=== PATIENT | male | born 1975 | race Caucasian/White ===

== ENCOUNTER 2019-06-28 08:01 | Inpatient (IN) | payer OTHER ==
--- NOTE | 2019-06-28 08:36 | ED ---
URI HPI - General Chief Complaint: Upper Respiratory Infection Stated Complaint: fever, SOB, cough Time Seen by Provider: 06/28/19 08:10 Source: patient, RN notes reviewed Mode of arrival: ambulatory Limitations: no limitations - History of Present Illness Initial Comments: This is a 44-year-old male with a benign history other than he is a smoker who s tates for the past 12 days she's been so 14 we started developing illness and feeling sick. He states he's had fatigue for the past 2 days shortness of breath or past 3 days chills and sweats since last night shakes left-sided sharp chest pain cough with yellow thick phlegm he generally doesn't feel well. He also has some diarrhea. No overt nausea vomiting. The pain is minimally states he has no known history of heart or lung disease he does not use any inhalers. No other known exposure at this time MD Complaint: fever, cough, sore throat, rhinorrhea, nasal congestion, other - Related Data Allergies Allergy/AdvReac Type Severity Reaction Status Date / Time gabapentin [From Neurontin] Allergy Unknown Verified 06/28/19 10:17 Review of Systems ROS Statement: Those systems with pertinent positive or pertinent negative responses have been documented in the HPI. ROS Other: All systems not noted in ROS Statement are negative. Past Medical History Past Medical History: Hypertension History of Any Multi-Drug Resistant Organisms: None Reported Additional Past Surgical History / Comment(s): prostethic eye Smoking Status: Current every day smoker Past Alcohol Use History: Occasional Past Drug Use History: Marijuana General Exam - General Exam Comments Initial Comments: This a well-developed obese male who is awake alert oriented 3 Limitations: no limitations General appearance: alert, anxious Head exam: Present: atraumatic, normocephalic, normal inspection Eye exam: Present: normal appearance, PERRL, EOMI. Absent: scleral icterus, conjunctival injection, periorbital swelling ENT exam: Present: mucous membranes moist, other (Posterior pharyngeal hyperemia with no exudates) Neck exam: Present: normal inspection, full ROM, other (No stridor JVD or bruits ). Absent: tenderness, meningismus, lymphadenopathy Respiratory exam: Present: decreased breath sounds. Absent: respiratory distress, wheezes, rales, rhonchi, stridor Cardiovascular Exam: Present: normal rhythm, tachycardia, normal heart sounds. Absent: systolic murmur, diastolic murmur, rubs, gallop, clicks GI/Abdominal exam: Present: soft, normal bowel sounds. Absent: distended, tenderness, guarding, rebound, rigid Extremities exam: Present: normal inspection, full ROM, normal capillary refill. Absent: tenderness, pedal edema, joint swelling, calf tenderness Back exam: Present: normal inspection Neurological exam: Present: alert, oriented X3, CN II-XII intact Psychiatric exam: Present: normal affect, normal mood Skin exam: Present: warm, dry, intact, normal color. Absent: rash Course Vital Signs 06/28/19 06/28/19 06/28/19 08:02 08:37 09:35 Temperature 97.9 F Pulse Rate 125 H 111 H Respiratory 20 18 20 Rate Blood Pressure 183/114 O2 Sat by Pulse 99 92 L Oximetry 06/28/19 10:33 Temperature 97.6 F Pulse Rate 105 H Respiratory 24 Rate Blood Pressure 178/118 O2 Sat by Pulse 96 Oximetry - Reevaluation(s) Reevaluation #1: 06/28/19 11:27 I did reevaluate patient several occasions he did have to Covid 19 tests performed which were both negative. Sec and was performed secondary to some apparently having issues with the combination influenza and Covid testing Medical Decision Making - Medical Decision Making I did discuss findings with the patient. Patient does demonstrate evidence of pneumonia with elevated troponin. Patient will be admitted the case is discussed with Dr. Peralta - Lab Data Result diagrams: 06/28/19 08:42 06/28/19 08:42 Lab Results 06/28/19 06/28/19 06/28/19 Range/Units 08:42 08:42 08:42 WBC 8.2 (3.8-10.6) k/uL RBC 4.88 (4.30-5.90) m/uL Hgb 16.4 (13.0-17.5) gm/dL Hct 48.5 (39.0-53.0) % MCV 99.3 (80.0-100.0) fL MCH 33.7 (25.0-35.0) pg MCHC 33.9 (31.0-37.0) g/dL RDW 13.0 (11.5-15.5) % Plt Count 149 L (150-450) k/uL Neutrophils % 80 % Lymphocytes % 13 % Monocytes % 4 % Eosinophils % 1 % Basophils % 1 % Neutrophils # 6.6 (1.3-7.7) k/uL Lymphocytes # 1.0 (1.0-4.8) k/uL Monocytes # 0.4 (0-1.0) k/uL Eosinophils # 0.1 (0-0.7) k/uL Basophils # 0.1 (0-0.2) k/uL PT 11.1 (9.0-12.0) sec INR 1.1 (<1.2) APTT 24.3 (22.0-30.0) sec D-Dimer 0.67 H (<0.60) mg/L FEU Sodium 134 L (137-145) mmol/L Potassium 3.5 (3.5-5.1) mmol/L Chloride 100 (98-107) mmol/L Carbon Dioxide 27 (22-30) mmol/L Anion Gap 7 mmol/L BUN 10 (9-20) mg/dL Creatinine 0.86 (0.66-1.25) mg/dL Est GFR (CKD-EPI)AfAm >90 (>60 ml/min/1.73 sqM) Est GFR (CKD-EPI)NonAf >90 (>60 ml/min/1.73 sqM) Glucose 136 H (74-99) mg/dL Plasma Lactic Acid Montez (0.7-2.0) mmol/L Calcium 9.5 (8.4-10.2) mg/dL Magnesium 1.1 L (1.6-2.3) mg/dL Total Bilirubin 1.1 (0.2-1.3) mg/dL AST 119 H (17-59) U/L ALT 60 H (4-49) U/L Alkaline Phosphatase 114 (38-126) U/L Lactate Dehydrogenase 1049 H (313-618) U/L Creatine Kinase 738 H (55-170) U/L Troponin I (0.000-0.034) ng/mL C-Reactive Protein <5.0 (<10.0) mg/L NT-Pro-B Natriuret Pep pg/mL Total Protein 8.6 H (6.3-8.2) g/dL Albumin 4.8 (3.5-5.0) g/dL Coronavirus (PCR) (Not Detectd) Influenza Type A RNA (Not Detectd) Influenza Type B (PCR) (Not Detectd) 06/28/19 06/28/19 06/28/19 Range/Units 08:42 08:42 08:42 WBC (3.8-10.6) k/uL RBC (4.30-5.90) m/uL Hgb (13.0-17.5) gm/dL Hct (39.0-53.0) % MCV (80.0-100.0) fL MCH (25.0-35.0) pg MCHC (31.0-37.0) g/dL RDW (11.5-15.5) % Plt Count (150-450) k/uL Neutrophils % % Lymphocytes % % Monocytes % % Eosinophils % % Basophils % % Neutrophils # (1.3-7.7) k/uL Lymphocytes # (1.0-4.8) k/uL Monocytes # (0-1.0) k/uL Eosinophils # (0-0.7) k/uL Basophils # (0-0.2) k/uL PT (9.0-12.0) sec INR (<1.2) APTT (22.0-30.0) sec D-Dimer (<0.60) mg/L FEU Sodium (137-145) mmol/L Potassium (3.5-5.1) mmol/L Chloride (98-107) mmol/L Carbon Dioxide (22-30) mmol/L Anion Gap mmol/L BUN (9-20) mg/dL Creatinine (0.66-1.25) mg/dL Est GFR (CKD-EPI)AfAm (>60 ml/min/1.73 sqM) Est GFR (CKD-EPI)NonAf (>60 ml/min/1.73 sqM) Glucose (74-99) mg/dL Plasma Lactic Acid Montez 2.1 H* (0.7-2.0) mmol/L Calcium (8.4-10.2) mg/dL Magnesium (1.6-2.3) mg/dL Total Bilirubin (0.2-1.3) mg/dL AST (17-59) U/L ALT (4-49) U/L Alkaline Phosphatase (38-126) U/L Lactate Dehydrogenase (313-618) U/L Creatine Kinase (55-170) U/L Troponin I 0.070 H* (0.000-0.034) ng/mL C-Reactive Protein (<10.0) mg/L NT-Pro-B Natriuret Pep 74 pg/mL Total Protein (6.3-8.2) g/dL Albumin (3.5-5.0) g/dL Coronavirus (PCR) (Not Detectd) Influenza Type A RNA (Not Detectd) Influenza Type B (PCR) (Not Detectd) 06/28/19 06/28/19 Range/Units 08:55 10:26 WBC (3.8-10.6) k/uL RBC (4.30-5.90) m/uL Hgb (13.0-17.5) gm/dL Hct (39.0-53.0) % MCV (80.0-100.0) fL MCH (25.0-35.0) pg MCHC (31.0-37.0) g/dL RDW (11.5-15.5) % Plt Count (150-450) k/uL Neutrophils % % Lymphocytes % % Monocytes % % Eosinophils % % Basophils % % Neutrophils # (1.3-7.7) k/uL Lymphocytes # (1.0-4.8) k/uL Monocytes # (0-1.0) k/uL Eosinophils # (0-0.7) k/uL Basophils # (0-0.2) k/uL PT (9.0-12.0) sec INR (<1.2) APTT (22.0-30.0) sec D-Dimer (<0.60) mg/L FEU Sodium (137-145) mmol/L Potassium (3.5-5.1) mmol/L Chloride (98-107) mmol/L Carbon Dioxide (22-30) mmol/L Anion Gap mmol/L BUN (9-20) mg/dL Creatinine (0.66-1.25) mg/dL Est GFR (CKD-EPI)AfAm (>60 ml/min/1.73 sqM) Est GFR (CKD-EPI)NonAf (>60 ml/min/1.73 sqM) Glucose (74-99) mg/dL Plasma Lactic Acid Montez (0.7-2.0) mmol/L Calcium (8.4-10.2) mg/dL Magnesium (1.6-2.3) mg/dL Total Bilirubin (0.2-1.3) mg/dL AST (17-59) U/L ALT (4-49) U/L Alkaline Phosphatase (38-126) U/L Lactate Dehydrogenase (313-618) U/L Creatine Kinase (55-170) U/L Troponin I (0.000-0.034) ng/mL C-Reactive Protein (<10.0) mg/L NT-Pro-B Natriuret Pep pg/mL Total Protein (6.3-8.2) g/dL Albumin (3.5-5.0) g/dL Coronavirus (PCR) Not Detected Not Detected (Not Detectd) Influenza Type A RNA Not Detected (Not Detectd) Influenza Type B (PCR) Not Detected (Not Detectd) - EKG Data -: EKG Interpreted by Me EKG shows normal: sinus rhythm EKG Comments: Sinus tachycardia rate of 111 ND interval 154 QRS 80 QT since QTC 348/[address]-T wave changes - Radiology Data Radiology results: report reviewed (I did review the imaging and report the initial x-ray was suspicious for bilateral pneumonia consistent with a viral infection potentially covid-19, CAT scan was negative for PE), image reviewed Disposition Clinical Impression: Pneumonia, Elevated troponin, Hypomagnesemia syndrome Disposition: ADMITTED IP TO THIS [facility] Condition: Fair Referrals: None,Stated [Primary Care Provider] - 1-2 days
[2019-06-28 09:17] LABS: Basophils # (A) 0.1 k/uL (0-0.2); Basophils % (A) 1 %; Eosinophils # (A) 0.1 k/uL (0-0.7); Eosinophils % (A) 1 %; HCT 48.5 % (39.0-53.0); HGB 16.4 gm/dL (13.0-17.5); Lymphocytes % (A) 13 %; MCH 33.7 pg (25.0-35.0); MCHC 33.9 g/dL (31.0-37.0); MCV 99.3 fL (80.0-100.0); Mean Platelet Volume 7.7; Monocytes # (A) 0.4 k/uL (0-1.0); Monocytes % (A) 4 %; Neutrophils # (A) 6.6 k/uL (1.3-7.7); Neutrophils % (A) 80 %; Platelet Count 149 k/uL (150-450); RBC 4.88 m/uL (4.30-5.90); WBC 8.2 k/uL (3.8-10.6)
[2019-06-28 09:30] LABS: ALT 60 U/L (4-49); AST 119 U/L (17-59); African American GFR (CKD) >90 (>60 ml/min/1.73 sqM); Albumin 4.8 g/dL (3.5-5.0); Alkaline Phosphatase 114 U/L (38-126); Anion Gap 7 mmol/L; Blood Urea Nitrogen 10 mg/dL (9-20); C Reactive Protein <5.0 mg/L (<10.0); Calcium 9.5 mg/dL (8.4-10.2); Carbon Dioxide 27 mmol/L (22-30); Chloride 100 mmol/L (98-107); Creatine Kinase 738 U/L (55-170); Glucose 136 mg/dL (74-99); LDH 1049 U/L (313-618); Magnesium 1.1 mg/dL (1.6-2.3); Non-African American GFR(CKD) >90 (>60 ml/min/1.73 sqM); Potassium 3.5 mmol/L (3.5-5.1); Sodium 134 mmol/L (137-145); Total Bilirubin 1.1 mg/dL (0.2-1.3); Total Protein 8.6 g/dL (6.3-8.2)
[2019-06-28 09:31] LABS: INR 1.1 (<1.2); Partial Thromboplastin Time 24.3 sec (22.0-30.0); Prothrombin Time 11.1 sec (9.0-12.0)
--- NOTE | 2019-06-28 09:32 | XR ---
EXAMINATION TYPE: XR chest 1V portable DATE OF EXAM: 06/28/2019 COMPARISON: NONE HISTORY: Suspected COVID-19 pneumonia TECHNIQUE: Single frontal view of the chest is obtained. FINDINGS: Left perihilar and basilar interstitial infiltrate. Mild increased density right medial lung base. Christopher spected COVID-19 pneumonia The cardiac silhouette size is within normal limits. The osseous structures are intact. IMPRESSION: 1. Suspected COVID-19 pneumonia
[2019-06-28 09:33] LABS: D-Dimer 0.67 mg/L FEU (<0.60)
[2019-06-28] MEDS ORDERED: cefTRIAXone IN SWFI 1,000 MG/10 ML SYRINGE IVP STA (09:59)
[2019-06-28] MEDS: MAGNESIUM SULFATE-D5W PMX 1 GM in DEXTROSE/WATER 1 100ML.BAG IVPB SCH ×2 (10:18→12:02)
--- NOTE | 2019-06-28 10:37 | CT ---
EXAMINATION TYPE: CT angio chest DATE OF EXAM: 06/28/2019 COMPARISON: None HISTORY: SOB, fever, cough CT DLP: 1079.3 mGycm CONTRAST: CT chest with contrast and 3D reconstruction with MIP imaging is performed with IV Contrast, patient injected with 100 mL of Isovue 370. Contrast-enhanced CT of the chest was performed through the course of the pulmonary arteries with brianne g and mediastinal window settings submitted. 3D reconstruction with MIP imaging was also performed. PULMONARY ARTERIES: The pulmonary arteries and their major tributaries are patent. I do not see nickolas dence for sizable filling defect to suggest pulmonary embolic process. LUNGS: The lungs are clear and free of infiltrate. No evidence for atelectasis. No pulmonary nodule or mass is detected. No pleural effusion. MEDIASTINUM: Thoracic aorta is of normal caliber. The heart is not enlarged. No evidence for mediast inal mass. No mediastinal lymph nodes greater than 1cm. HILAR STRUCTURES: No evidence for mass. No hilar lymph nodes greater than 1 cm. UPPER ABDOMEN: Fatty liver with hepatomegaly. IMPRESSION: 1. No evidence for Pulmonary embolism at this time.
[2019-06-28] MEDS ORDERED: AZITHROMYCIN 500 MG in SODIUM CHLORIDE 0.9% 250 ML IVPB STA (11:27)
[2019-06-28] MEDS ORDERED: PNEUMONIA PROTOCOL UTILIZED 1 EACH MISC PO PRN (11:32)
[2019-06-28] MEDS ORDERED: NITROGLYCERIN SL TABS 0.4 MG TAB SUBLINGUAL PRN (11:35)
[2019-06-28] MEDS ORDERED: ASPIRIN 81 MG PO STA (11:35)
[2019-06-28] MEDS: SODIUM CHLORIDE 0.9% 1,000 ML IV SCH ×2 (12:15→23:19)
[2019-06-28] MEDS ORDERED: ATENOLOL 25 MG TAB PO STA (12:42)
[2019-06-28] MEDS ORDERED: SODIUM CHLORIDE 0.9% 1,000 ML IV STA (12:42)
[2019-06-28] MEDS ORDERED: ONDANSETRON 4 MG/2 ML VIAL IVP STA (12:46)
--- NOTE | 2019-06-28 15:23 | HP ---
HISTORY AND PHYSICAL A 43-year-old admitted with benign history, otherwise he is a smoker. For the past 12 days he started feeling weakness and sickness, fatigue for the past 2 days, short of breath for the past 3 days, chills and sweats last night. Last night a sharp chest pain with yellow thick phlegm. He is admitted for clinical pneumonia with negative COVID test x2. He has fever, cough, sore throat, rhinorrhea, nasal congestion. ALLERGIES: Gabapentin. 14 POINT REVIEW OF SYSTEMS: Negative except for as mentioned in HPI. PAST MEDICAL HISTORY: Hypertension. Current everyday smoker and marijuana, drinker. PHYSICAL EXAM: Well-developed, obese male, alert, orient x3. HEAD: Normocephalic, atraumatic. Pupils equal, round, reactive. NECK: Supple. RESPIRATORY: Decreased breath sounds. CARDIOVASCULAR: S1, S2. GI: Soft, nontender. BMI is over 30-40. Back normal inspection. NEUROLOGIC: Cranial nerves are intact. PSYCH: Fair mood and affect. Temperature 97.9, pulse is 111-125, blood pressure 180s/100s, O2 is 92-99%. Troponins elevated. He had negative COVID x2. ASSESSMENT: Community-acquired pneumonia, elevated troponin, possibly still could have COVID even though it is a negative test x2. Pulmonary is consulted as Cardiology is for elevated troponin, hypertension acceleration and hyponatremia, D-dimer is mildly high 0.[address] angiogram. Low magnesium of 1.1, glucose 136, creatinine kinase is 738. LDH is 1049. Possibly occult COVID infection with negative test x2. Prognosis extremely guarded. Wait for Pulmonary, Infectious Disease consultation. MMODL / IJN: [id number] /
--- NOTE | 2019-06-28 15:46 | P.CNPUL ---
History of Present Illness Consult date: 06/28/19 Reason for consult: dyspnea, cough, pneumonia Chief complaint: Shortness of breath with cough congestion progressive for last 2 weeks History of present illness: This is a 43-year-old morbidly obese male with extensive history of smoking and nicotine use patient's symptoms started about 2 weeks ago with upper respiratory type infection with increased cough congestion shortness present which has been progressive, up to a point that he started having chills and sweating fever in the last 3 days sputum starting turning yellow came into the hospital for further evaluation patient had a chest x-ray showed bilateral pneumonia, his influenza is negative and covid 19 is also negative, patient has been placed on antibiotics, computed tomography scan have been negative for any acute process Review of Systems All systems: negative Past Medical History Past Medical History: Hypertension Additional Past Medical History / Comment(s): staph-leg wound, prosthetic right eye, head injury 10 years ago History of Any Multi-Drug Resistant Organisms: MRSA Date of last positivie culture/infection: may 2019 MDRO Source:: leg wound Additional Past Surgical History / Comment(s): prostethic eye, head (8 or 9 surgeries post accident)-10 years ago Past Psychological History: Anxiety Smoking Status: Current every day smoker Past Alcohol Use History: Occasional Additional Past Alcohol Use History / Comment(s): weekend drinker Past Drug Use History: Marijuana Additional Drug Use History / Comment(s): 1-2 times a week - Past Family History Mother Family Medical History: Diabetes Mellitus, Seizure Disorder Medications and Allergies Home Medications Medication Instructions Recorded Confirmed Type Acetaminophen Tab [Tylenol Tab] 1,000 mg PO Q6HR 06/28/19 06/28/19 History Multivit-Mins/Iron/Folic/Lycop 1 tab PO DAILY 06/28/19 06/28/19 History [Centrum Men's Tablet] Allergies Allergy/AdvReac Type Severity Reaction Status Date / Time gabapentin [From Neurontin] Allergy Unknown Verified 06/28/19 11:34 Physical Exam Vitals: Vital Signs Temp Pulse Pulse Resp BP BP Pulse Ox 06/28/19 14:00 98.3 F 93 20 152/87 96 06/28/19 13:09 112 H 18 169/116 94 L 06/28/19 12:01 98.3 F 92 20 152/87 96 06/28/19 12:00 164/114 06/28/19 11:00 92 24 179/124 94 L 06/28/19 10:33 97.6 F 105 H 24 178/118 96 06/28/19 09:35 111 H 20 92 L 06/28/19 08:37 18 06/28/19 08:02 97.9 F 125 H 20 183/114 99 Intake and Output 06/28/19 06/28/19 06/28/19 06:59 14:59 22:59 Other: Weight 158.757 kg - Constitutional General appearance: average body habitus, cooperative, disheveled, mild distress - EENT Eyes: EOMI, PERRLA Ears: bilateral: normal - Neck Neck: normal ROM Carotids: bilateral: upstroke normal - Respiratory Respiratory: bilateral: diminished, wheezing (On fours expiration) - Cardiovascular Rhythm: regular Heart sounds: normal: S1, S2 - Gastrointestinal General gastrointestinal: soft - Neurologic Neurologic: CNII-XII intact - Musculoskeletal Musculoskeletal: gait normal, generalized weakness, strength equal bilaterally Results - Laboratory Findings CBC and BMP: 06/28/19 08:42 06/28/19 08:42 PT/INR, D-dimer PT 11.1 sec (9.0-12.0) 06/28/19 08:42 INR 1.1 (<1.2) 06/28/19 08:42 D-Dimer 0.67 mg/L FEU (<0.60) H 06/28/19 08:42 Abnormal lab findings: Abnormal Labs 06/28/19 06/28/19 06/28/19 08:42 08:42 08:42 Plt Count 149 L D-Dimer 0.67 H Sodium 134 L Glucose 136 H Plasma Lactic Acid Montez Magnesium 1.1 L AST 119 H ALT 60 H Lactate Dehydrogenase 1049 H Creatine Kinase 738 H Troponin I Total Protein 8.6 H 06/28/19 06/28/19 06/28/19 08:42 08:42 13:20 Plt Count D-Dimer Sodium Glucose Plasma Lactic Acid Montez 2.1 H* Magnesium AST ALT Lactate Dehydrogenase Creatine Kinase Troponin I 0.070 H* 1.130 H* Total Protein 06/28/19 13:20 Plt Count D-Dimer Sodium Glucose Plasma Lactic Acid Montez 2.1 H* Magnesium AST ALT Lactate Dehydrogenase Creatine Kinase Troponin I Total Protein - Diagnostic Findings Chest x-ray: report reviewed, image reviewed CT scan - chest: report reviewed (Finding as noted above), image reviewed Assessment and Plan Assessment: Acute COPD exacerbation Purulent tracheobronchitis Morbid obesity Likely obstructive sleep apnea Plan: Continue antibiotics Will start IV steroids and breathing treatments Follow clinical course closely Time with Patient: Greater than 30
[2019-06-28] MEDS: IPRATROPIUM-ALBUTEROL 3 ML NEB INHALATION SCH ×2 (16:13→20:22)
[2019-06-28] MEDS ORDERED: HEPARIN SODIUM,PORCINE 5,000 UNIT/ML 1 ML VIAL IV ONE (16:56)
[2019-06-28] MEDS ORDERED: HEPARIN SODIUM,PORCINE 5,000 UNIT/ML 1 ML VIAL IV PRN (16:56)
[2019-06-28] MEDS: HEPARIN SOD,PORK IN 0.45% NACL 25,000 UNIT in 0.45% NACL 1 250ML.BAG IV SCH (17:48)
[2019-06-28 20:40] LABS: Glucose,Whole Blood 129 mg/dL (75-99)
[2019-06-28] MEDS: INSULIN ASPART (NovoLOG) 100 UNIT/ML VIAL SQ SCH (21:44)
[2019-06-28] MEDS: methylPREDNISolone SOD SUCCI 40 MG/ML 1 ML VIAL IV SCH (21:49)
[2019-06-28] MEDS ORDERED: amLODIPine 2.5 MG TAB PO SCH (22:00)
[2019-06-28] MEDS: HYDROXYCHLOROQUINE SULFATE 200 MG TAB PO SCH (22:38)
--- NOTE | 2019-06-29 00:02 | CONS ---
CONSULTATION DATE OF SERVICE: 06/28/2019 REASON FOR CONSULTATION: Possible COVID-19 pneumonia. HISTORY OF PRESENT ILLNESS: The patient is a 43-year-old male, morbidly obese, with a history of smoking. He presented to the hospital weak with increasing shortness of breath and feeling sick, fatigued. The patient's breathing has been getting worse over the last 3 days and he is complaining of some left-sided chest pain. The patient also has a cough which is moderate in intensity and is bringing up some thick yellow sputum. No hemoptysis. No nausea. No vomiting. No . Did complain of some diarrhea. With these symptoms the patient was evaluated by the ER physician. On arrival to the ER, the patient has been afebrile. The patient did have initial chest x-ray which was reported by the radiologist as suspected COVID-19 pneumonia. Subsequently, an hour later, the patient did have a CT angiogram that was negative for PE and the lungs were clear of any infiltrate. The patient did have a nasopharyngeal swab x2 that came back negative for coronavirus. Influenza PCR was negative. The patient is afebrile and did not have any lymphopenia. He did have elevated ferritin and LDH, but the CRP is negative. was slightly elevated. The patient has been started on Rocephin, Zithromax and Plaquenil and steroids. Infectious Disease was consulted for further recommendations regarding antibiotic therapy. REVIEW OF SYSTEMS: Positive points have been mentioned in HPI. Rest of the systems are negative. PAST MEDICAL HISTORY: Obesity, COPD, hypertension. PAST SURGICAL HISTORY: Prosthetic eye. SOCIAL HISTORY: Current everyday smoker. Occasionally drinks. Did admit to marijuana use. FAMILY HISTORY: No pertinent findings noticed. ALLERGIES: GABAPENTIN. MEDICATIONS: The patient is currently on DuoNeb, Norvasc, aspirin, Zithromax, Rocephin, Plaquenil, NovoLog, Solu-Medrol, Nitrostat and IV fluid. PHYSICAL EXAMINATION: Blood pressure is 169/100 with a pulse of 87, temperature 98.3. He is 94% on room air. General description is a middle-aged male up in the bed in no distress. No tachypnea or accessory muscle of respiration use. HEENT examination shows no pallor or scleral icterus. Oral mucosa membrane is dry. No pharyngeal erythema or thrush. NECK: Trachea is central. No thyromegaly. LUNGS: Unlabored breathing. Decreased intensity of breath sounds. No wheeze. HEART: S1, S2. Regular rate and rhythm. ABDOMEN: Soft. No tenderness. EXTREMITIES: No edema of the feet. SKIN EXAMINATION: No rash or mass palpable. Neurologically the patient is awake, alert, oriented x3. Mood and affect normal. LABS/IMAGING: Hemoglobin 16.4, white count 8.2, BUN of 10, creatinine 0.86. Lactic acid was elevated at 2.1; repeat is down to 1.0. LDH CK has been elevated as well as the troponin. Chest x-ray report mentioned above. CT angiogram was negative for PE. DIAGNOSTIC IMPRESSION AND PLAN: Patient presented to hospital with increasing shortness of breath which is likely multifactorial in this patient with a possible component of chronic obstructive pulmonary disease exacerbation with tracheobronchitis. However, in view of elevated troponin, underlying chronic etiology needs to be ruled out as well. Clinically not behaving as COVID-19 in this patient with no fever, normal CRP and no lymphopenia, which are usually seen commonly with COVID-19 infection. PLAN: 1. We will try to obtain a sputum sample for Gram stain and culture. 2. Keep the patient on Rocephin and Zithromax, steroids and bronchodilators for underlying COPD exacerbation and tracheobronchitis. 3. We will follow his clinical condition and culture to further adjust medication if needed. Thank you for this consultation. Will follow this patient along with you. MMODL / IJN: [id number] /
[2019-06-29 05:47] LABS: Glucose,Whole Blood 163 mg/dL (75-99)
[2019-06-29] MEDS: INSULIN ASPART (NovoLOG) 100 UNIT/ML VIAL SQ SCH ×4 (05:59→22:07)
[2019-06-29] MEDS ORDERED: amLODIPine 5 MG TAB PO STA (07:01)
[2019-06-29] MEDS ORDERED: METOPROLOL TARTRATE 50 MG TAB PO STA (07:02)
[2019-06-29 07:21] LABS: Basophils % (A) 1 %; Eosinophils % (A) 0 %; HGB 17.4 gm/dL (13.0-17.5); Lymphocytes # (A) 0.5 k/uL (1.0-4.8); Lymphocytes % (A) 9 %; MCH 34.3 pg (25.0-35.0); MCV 100.8 fL (80.0-100.0); Macrocytosis Slight; Mean Platelet Volume 7.7; Monocytes # (A) 0.2 k/uL (0-1.0); Monocytes % (A) 3 %; Neutrophils # (A) 4.5 k/uL (1.3-7.7); Neutrophils % (A) 86 %; Platelet Count 122 k/uL (150-450); RBC 5.06 m/uL (4.30-5.90); WBC 5.2 k/uL (3.8-10.6)
[2019-06-29 07:35] LABS: ALT 62 U/L (4-49); AST 107 U/L (17-59); African American GFR (CKD) >90 (>60 ml/min/1.73 sqM); Albumin 4.5 g/dL (3.5-5.0); Alkaline Phosphatase 115 U/L (38-126); Anion Gap 12 mmol/L; Blood Urea Nitrogen 5 mg/dL (9-20); Calcium 8.9 mg/dL (8.4-10.2); Carbon Dioxide 26 mmol/L (22-30); Chloride 99 mmol/L (98-107); Cholesterol 202 mg/dL (<200); Glucose 161 mg/dL (74-99); HDL Cholesterol 70 mg/dL (40-60); LDL Cholesterol,Calculated 103 mg/dL (0-99); Non-African American GFR(CKD) >90 (>60 ml/min/1.73 sqM); Potassium 3.9 mmol/L (3.5-5.1); Sodium 137 mmol/L (137-145); Total Bilirubin 1.3 mg/dL (0.2-1.3); Total Protein 8.3 g/dL (6.3-8.2); Triglycerides 143 mg/dL (<150)
--- NOTE | 2019-06-29 08:26 | XR ---
EXAMINATION TYPE: XR chest 1V portable DATE OF EXAM: 06/29/2019 COMPARISON: Prior chest x-ray 06/28/2019 HISTORY: Pneumonia TECHNIQUE: Single frontal view of the chest is obtained. FINDINGS: There are overlying cardiac leads. Cardiac mediastinal silhouette, pulmonary vascularity a nd karel are within normal limits. No evident airspace disease, pneumothorax, or pleural effusion. IMPRESSION: No acute process.
[2019-06-29] MEDS: IPRATROPIUM-ALBUTEROL 3 ML NEB INHALATION SCH ×4 (08:38→20:07)
--- NOTE | 2019-06-29 09:01 | ECHOF ---
Referral Reason:SOB MEASUREMENTS -------- HEIGHT: 162.6 cm WEIGHT: 135.2 kg BP: 162/124 IVSd: 1.4 cm (0.6 - 1.1) LVIDd: 3.9 cm (3.9 - 5.3) LVPWd: 1.6 cm (0.6 - 1.1) IVSs: 1.9 cm LVIDs: 2.3 cm LVPWs: 2.3 cm MV E Akhil: 0.59 m/s MV DecT: 172 ms MV A Akhil: 0.79 m/s MV E/A Ratio: 0.75 RAP: 5.00 mmHg RVSP: 8.03 mmHg FINDINGS -------- Sinus rhythm. This was a technically difficult study with suboptimal views. Limited Study The left ventricular size is normal. There is moderate concentric left ventricular hypertrophy. O verall left ventricular systolic function is normal with, an EF between 55 - 60 %. The RV was not well visualized. The left atrium was not well visualized. The right atrium was not well visualized. The aortic valve was not well visualized. The mitral valve was not well visualized. The tricuspid valve was not well visualized. The pulmonic valve was not well visualized. CONCLUSIONS -------- 1. Limited Study 2. There is moderate concentric left ventricular hypertrophy. 3. Overall left ventricular systolic function is normal with, an EF between 55 - 60 %. 4. The RV was not well visualized. 5. The left atrium was not well visualized. 6. The right atrium was not well visualized. 7. The aortic valve was not well visualized. 8. The mitral valve was not well visualized. 9. The tricuspid valve was not well visualized. 10. The pulmonic valve was not well visualized. HEBREW TEACHER: Sheila Moreno RDCS
[2019-06-29] MEDS: methylPREDNISolone SOD SUCCI 40 MG/ML 1 ML VIAL IV SCH ×2 (09:40→22:07)
[2019-06-29] MEDS: AZITHROMYCIN 500 MG TAB PO SCH (09:41)
[2019-06-29] MEDS: ASPIRIN 325 MG TAB PO SCH (09:41)
[2019-06-29] MEDS: HYDROXYCHLOROQUINE SULFATE 200 MG TAB PO SCH ×2 (09:41→22:07)
[2019-06-29] MEDS: NICOTINE 14MG/24HR PATCH TRANSDERM SCH (09:41)
--- NOTE | 2019-06-29 11:00 | CONS ---
CONSULTATION Issa Yuan is a 43-year-old somewhat obese gentleman with a history of smoking and also is known to have some bronchial asthma. He came into the hospital with complaints of about 3 day's history of some chills, sweats, cough and felt weak and tired. After he came into the hospital, he had an abnormal chest x-ray, raising the possibility of an infiltrate. He was negative for COVID-19 testing. However, his troponin has gone up and I was asked to see him mainly because of elevated troponin of 1.6 on arrival, which has come down to 0.9. Initial troponin was 0.07. Repeat 1 was 1.1 and then it is 1.6 last night. He is resting comfortably at the time of my evaluation, but has had recurrent cough and that seems to be his most difficult issue. Apparently, he had a muro virus test done that was negative x2. His BNP is unremarkable. Chest x-ray that was performed this morning also revealed no significant abnormalities. However, chest x-ray from yesterday suggested some left perihilar and basilar interstitial infiltrate. He also had a CT angio performed which revealed no evidence of any pulmonary embolism. He is resting comfortably at the time of my evaluation other than episodes of cough. He was seen by Dr. Campos from Pulmonology and he felt that we may be dealing with some purulent tracheobronchitis with possible acute COPD and exacerbation. On reviewing his the troponin profile, possibility of a non STEMI type 2 with the oxygen mismatch is a possibility. EKG does not reveal any significant changes. I explained to the patient that we will consider coronary angiography after his pulmonary status is more stabilized. Patient is not having any chest discomfort at this time. He may probably have significant underlying sleep apnea syndrome as well. PAST MEDICAL HISTORY: 1. Hypertension, uncontrolled. 2. Obesity. 3. Smoking. 4. COPD. 5. Marijuana use. PHYSICAL EXAMINATION: Blood pressure is 150/80, pulse rate is about 90 per minute, regular. HEENT: Unremarkable. Fundus was not examined by me. NECK: Supple, there is JVD of 1 cm. No carotid bruit. HEART: Exam reveals S1, S2. Distant heart sounds. LUNGS: Reveal scattered rhonchi. ABDOMEN: Soft, nontender. Lower extremities reveal diminished pulses. Central nervous system grossly no focal deficits. EKG revealed a sinus tachycardia. No acute changes. IMPRESSION: 1. Exacerbation of chronic obstructive pulmonary disease. 2. Probable purulent tracheobronchitis. 3. Known clear-cut pneumonia although initial chest x-ray suggested that. 4. Probable sleep apnea syndrome. 5. Obesity. 6. Non ST elevation myocardial infarction, probably type 2. RECOMMENDATIONS: I am recommending that we will continue IV heparin, antibiotics and obtain echocardiogram. Based on clinical course, I will consider cardiac catheterization after his pulmonary status is stabilized. Patient has been counseled regarding the importance of quitting smoking. Thank you very much for the consult. ROSANNEL / DARYLN: [id number] /
[2019-06-29 12:03] LABS: Glucose,Whole Blood 143 mg/dL (75-99)
[2019-06-29] MEDS: SODIUM CHLORIDE 0.9% 1,000 ML IV SCH ×2 (12:37→17:53)
[2019-06-29 16:57] LABS: Glucose,Whole Blood 158 mg/dL (75-99)
[2019-06-29] MEDS: HEPARIN SOD,PORK IN 0.45% NACL 25,000 UNIT in 0.45% NACL 1 250ML.BAG IV SCH ×2 (17:55→23:15)
[2019-06-29 20:37] LABS: Glucose,Whole Blood 148 mg/dL (75-99)
[2019-06-29 21:56] LABS: Hemoglobin A1C 6.2 % (4.0-6.0)
[2019-06-29] MEDS: METOPROLOL TARTRATE 50 MG TAB PO SCH (22:07)
[2019-06-29] MEDS: HYDROcodone/APAP 5-325MG 1 EACH TAB PO PRN (22:08)
--- NOTE | 2019-06-30 00:27 | PN ---
PROGRESS NOTE DATE OF SERVICE: 06/29/2019 REASON FOR FOLLOWUP VISIT: Tracheobronchitis and question of pneumonia. INTERVAL HISTORY: The patient is currently afebrile. He is still complaining of shortness of breath. He did have some cough, bringing up some sputum. No hemoptysis. No nausea, vomiting. No abdominal pain or diarrhea. PHYSICAL EXAMINATION: Blood pressure 160/88 with a pulse of 105, temperature 98.3. He is 93% on 3 L nasal cannula. General description is a middle-aged male lying in bed in no distress. Respiratory system: Unlabored breathing, decreased intensity of breath sounds. No wheeze. HEART: S1, S2. Regular rate and rhythm. ABDOMEN: Soft, no tenderness. LABS: Hemoglobin is 17.4, white count 5.2. BUN of 5, creatinine 0.78. Troponins are elevated. DIAGNOSTIC IMPRESSION AND PLAN: Patient admitted to the hospital with difficulty breathing, which is multifactorial, concern for possible tracheobronchitis and cardiac etiology. The patient being monitored by Cardiology. X-rays have been negative. Continue with short course of antibiotic. Monitor clinical course closely. MMODL / IJN: [id number] /
--- NOTE | 2019-06-30 00:59 | PN ---
PROGRESS NOTE SUBJECTIVE: This is a 43-year-old white male who was admitted with possible COVID infection pneumonia, asthma/COPD exacerbation. Breathing is greatly improved. Nicotine patch. Cardiovascular S1, S2. LUNGS: Transmitted upper airway sounds. Hematology negative Homans. Echocardiogram was done. Consultation by hat block bench hand. BNP is unremarkable. ASSESSMENT: 1. Chronic obstructive pulmonary disease exacerbation. 2. Tracheobronchitis. 3. Possible Covid infection. 4. Sleep apnea. 5. Obesity. 6. Possible non ST elevation myocardial infarction. 7. Await for echo. 8. IV heparin. 9. Antibiotics continue. 10.Possible heart catheterization once cleared by nutrition services worker. MMODL / IJN: [id number] /
[2019-06-30] MEDS: SODIUM CHLORIDE 0.9% 1,000 ML IV SCH ×2 (03:27→21:07)
[2019-06-30 06:18] LABS: Glucose,Whole Blood 156 mg/dL (75-99)
[2019-06-30] MEDS: INSULIN ASPART (NovoLOG) 100 UNIT/ML VIAL SQ SCH ×4 (06:32→21:08)
[2019-06-30 07:31] LABS: Basophils % (A) 0 %; Eosinophils % (A) 0 %; HCT 45.9 % (39.0-53.0); HGB 15.8 gm/dL (13.0-17.5); Lymphocytes # (A) 0.7 k/uL (1.0-4.8); Lymphocytes % (A) 7 %; MCH 34.5 pg (25.0-35.0); MCHC 34.4 g/dL (31.0-37.0); MCV 100.3 fL (80.0-100.0); Mean Platelet Volume 8.2; Monocytes # (A) 0.3 k/uL (0-1.0); Monocytes % (A) 3 %; Neutrophils # (A) 9.2 k/uL (1.3-7.7); Neutrophils % (A) 89 %; Platelet Count 132 k/uL (150-450); RBC 4.57 m/uL (4.30-5.90); RDW 13.1 % (11.5-15.5); WBC 10.3 k/uL (3.8-10.6)
[2019-06-30 07:40] LABS: African American GFR (CKD) >90 (>60 ml/min/1.73 sqM); Anion Gap 8 mmol/L; Blood Urea Nitrogen 11 mg/dL (9-20); Calcium 9.2 mg/dL (8.4-10.2); Carbon Dioxide 27 mmol/L (22-30); Chloride 100 mmol/L (98-107); Glucose 158 mg/dL (74-99); Magnesium 1.8 mg/dL (1.6-2.3); Non-African American GFR(CKD) >90 (>60 ml/min/1.73 sqM); Potassium 4.1 mmol/L (3.5-5.1); Sodium 135 mmol/L (137-145)
[2019-06-30] MEDS: IPRATROPIUM-ALBUTEROL 3 ML NEB INHALATION SCH ×3 (07:55→15:39)
[2019-06-30] MEDS: ASPIRIN 325 MG TAB PO SCH (08:57)
[2019-06-30] MEDS: HYDROXYCHLOROQUINE SULFATE 200 MG TAB PO SCH (08:57)
[2019-06-30] MEDS: METOPROLOL TARTRATE 50 MG TAB PO SCH ×2 (08:57→21:08)
[2019-06-30] MEDS: AZITHROMYCIN 500 MG TAB PO SCH (08:57)
[2019-06-30] MEDS: HEPARIN SOD,PORK IN 0.45% NACL 25,000 UNIT in 0.45% NACL 1 250ML.BAG IV SCH ×2 (08:58→21:06)
[2019-06-30] MEDS: HYDROcodone/APAP 5-325MG 1 EACH TAB PO PRN (08:59)
[2019-06-30] MEDS ORDERED: amLODIPine 5 MG TAB PO SCH (09:00)
[2019-06-30] MEDS ORDERED: amLODIPine 5 MG TAB PO STA (09:15)
[2019-06-30] MEDS ORDERED: METOPROLOL TARTRATE 50 MG TAB PO STA (09:57)
[2019-06-30] MEDS: NICOTINE 14MG/24HR PATCH TRANSDERM SCH (10:14)
[2019-06-30] MEDS: methylPREDNISolone SOD SUCCI 40 MG/ML 1 ML VIAL IV SCH ×2 (10:14→21:07)
[2019-06-30 12:46] LABS: Glucose,Whole Blood 132 mg/dL (75-99)
--- NOTE | 2019-06-30 14:08 | PN ---
PROGRESS NOTE Mr. Yuan is a morbidly obese gentleman who came in with what seems to be acute tracheobronchitis type picture. He has improved in this regard. He is; however. still tachycardic and also has blood pressure that is elevated, but with the current medical regimen, the control seems to be better. He denies any chest discomfort. Echo revealed preserved systolic function. Patient may have underlying obstructive sleep apnea syndrome. His troponin profile does suggest a non-ST elevation TX but this could be a type 2 TX with oxygen mismatch. I am recommending that we will optimize his pulmonary status and then consider cardiac catheterization on Tuesday. I explained to him the rationale, risks, benefits, and options. He seems to understand all details and wishes to proceed with the procedure. He is at this time asymptomatic. I will obtain a thyroid function level to rule out any hyperthyroidism. I will also optimize blood pressure control and explained to him regarding coronary angiography. He understands the rationale, risks, benefits, options. Hopefully, his heart rate and blood pressure will settle down. Will check thyroid function test,. same medical regimen. MMODL / IJN: [id number] /
--- NOTE | 2019-06-30 14:58 | P.PN ---
Subjective Progress Note Date: 06/29/19 (Late entry note) Principal diagnosis: Acute COPD exacerbation Purulent tracheobronchitis Morbid obesity Likely obstructive sleep apnea 06/29/2019, he shouldn't seen evaluated examined his still have shortness of breath but severity slightly improved has been having cough congestion and some sputum production which is moderate yellow, oxygenation is improved on 3 L 93% denies any chest pain abdominal pain denies any hemoptysis respiratory status slightly improved compared to yesterday his hemodynamics also appears to be slightly better white cell count is normal This is a 43-year-old morbidly obese male with extensive history of smoking and nicotine use patient's symptoms started about 2 weeks ago with upper respiratory type infection with increased cough congestion shortness present which has been progressive, up to a point that he started having chills and sweating fever in the last 3 days sputum starting turning yellow came into the hospital for further evaluation patient had a chest x-ray showed bilateral pneumonia, his influenza is negative and covid 19 is also negative, patient has been placed on antibiotics, computed tomography scan have been negative for any acute process Objective - Vital Signs Vital signs: Vital Signs Temp 98.0 F Pulse 108 H Resp 20 BP 169/90 Pulse Ox 96 Intake & Output - Exam Constitutional General appearance: average body habitus, cooperative, disheveled, mild distress - EENT Eyes: EOMI, PERRLA Ears: bilateral: normal - Neck Neck: normal ROM Carotids: bilateral: upstroke normal - Respiratory Respiratory: bilateral: diminished, wheezing (On fours expiration) - Cardiovascular Rhythm: regular Heart sounds: normal: S1, S2 - Gastrointestinal General gastrointestinal: soft - Neurologic Neurologic: CNII-XII intact - Musculoskeletal Musculoskeletal: gait normal, generalized weakness, strength equal bilaterally - Labs CBC & Chem 7: 06/30/19 07:10 06/30/19 07:10 Labs: Abnormal Lab Results - Last 24 Hours (Table) 06/29/19 06/29/19 06/29/19 Range/Units 06:45 16:29 16:56 MCV (80.0-100.0) fL Plt Count (150-450) k/uL Neutrophils # (1.3-7.7) k/uL Lymphocytes # (1.0-4.8) k/uL APTT 40.3 H (22.0-30.0) sec Sodium (137-145) mmol/L Glucose (74-99) mg/dL POC Glucose (mg/dL) 158 H (75-99) mg/dL Hemoglobin A1c 6.2 H (4.0-6.0) % 06/29/19 06/29/19 06/30/19 Range/Units 20:35 23:29 06:16 MCV (80.0-100.0) fL Plt Count (150-450) k/uL Neutrophils # (1.3-7.7) k/uL Lymphocytes # (1.0-4.8) k/uL APTT 41.4 H (22.0-30.0) sec Sodium (137-145) mmol/L Glucose (74-99) mg/dL POC Glucose (mg/dL) 148 H 156 H (75-99) mg/dL Hemoglobin A1c (4.0-6.0) % 06/30/19 06/30/19 06/30/19 Range/Units 07:10 07:10 07:10 MCV 100.3 H (80.0-100.0) fL Plt Count 132 L (150-450) k/uL Neutrophils # 9.2 H (1.3-7.7) k/uL Lymphocytes # 0.7 L (1.0-4.8) k/uL APTT 61.2 H (22.0-30.0) sec Sodium 135 L (137-145) mmol/L Glucose 158 H (74-99) mg/dL POC Glucose (mg/dL) (75-99) mg/dL Hemoglobin A1c (4.0-6.0) % 06/30/19 Range/Units 12:28 MCV (80.0-100.0) fL Plt Count (150-450) k/uL Neutrophils # (1.3-7.7) k/uL Lymphocytes # (1.0-4.8) k/uL APTT (22.0-30.0) sec Sodium (137-145) mmol/L Glucose (74-99) mg/dL POC Glucose (mg/dL) 132 H (75-99) mg/dL Hemoglobin A1c (4.0-6.0) % Microbiology - Last 24 Hours (Table) 06/28/19 08:42 Blood Culture - Preliminary Blood No Growth after 48 hours 06/28/19 18:23 Gram Stain - Final Sputum Sputum Culture - Final Assessment and Plan Assessment: Acute COPD exacerbation Purulent tracheobronchitis Morbid obesity Likely obstructive sleep apnea Elevated troponin Non-ST SEGMENT elevated [place] versus demand ischemia Plan: Continue antibiotics Continue IV steroids and breathing treatments Follow clinical course closely Cardio services following Time with Patient: Greater than 30
--- NOTE | 2019-06-30 15:00 | P.PN ---
Subjective Progress Note Date: 06/30/19 Principal diagnosis: Acute COPD exacerbation Purulent tracheobronchitis Morbid obesity Likely obstructive sleep apnea 06/30/2019, patient seen eval examined breathing is stable left cough and congested patient is on heparin drip cardiovascular services considering cardiac cath and angiogram to his oxygen is improved to 96% on room air, Tuesday chest x-ray has been negative 06/29/2019, he shouldn't seen evaluated examined his still have shortness of breath but severity slightly improved has been having cough congestion and some sputum production which is moderate yellow, oxygenation is improved on 3 L 93% denies any chest pain abdominal pain denies any hemoptysis respiratory status slightly improved compared to yesterday his hemodynamics also appears to be slightly better white cell count is normal This is a 43-year-old morbidly obese male with extensive history of smoking and nicotine use patient's symptoms started about 2 weeks ago with upper respiratory type infection with increased cough congestion shortness present which has been progressive, up to a point that he started having chills and sweating fever in the last 3 days sputum starting turning yellow came into the hospital for further evaluation patient had a chest x-ray showed bilateral pneumonia, his influenza is negative and covid 19 is also negative, patient has been placed on antibiotics, computed tomography scan have been negative for any acute process Objective - Vital Signs Vital signs: Vital Signs Temp 98.0 F 06/30/19 08:00 Pulse 108 H 06/30/19 11:20 Resp 20 06/30/19 08:00 BP 169/90 06/30/19 08:00 Pulse Ox 96 06/30/19 08:00 Intake & Output 06/29/19 06/30/19 06/30/19 18:59 06:59 18:59 Intake Total 826.167 802.496 205.114 Output Total 2 700 Balance 824.167 102.496 205.114 Weight 116.5 kg Intake: IV 545 Sodium Chloride 0.9% 1, 500 000 ml @ 100 mls/hr IV . Q10H [facility] Rx#:[id number] heparin 45 Intake, IV Titration 281.167 25.496 205.114 Amount Heparin Sod,Pork in 0.45% 181.167 25.496 205.114 NaCl 25,000 unit In 0.45 % NaCl 1 250ml.bag @ 6. 299 UNITS/KG/HR 10 mls/hr IV .Q24H [facility] Rx#: [id number] cefTRIAXone 1 gm In 100 Sodium Chloride 0.9% 50 ml @ 100 mls/hr IVPB Q24HR [facility] Rx#:[id number] Oral 777 Output: Urine 2 700 Other: Voiding Method Toilet # Voids 1 - Exam Constitutional General appearance: average body habitus, cooperative, disheveled, mild distress - EENT Eyes: EOMI, PERRLA Ears: bilateral: normal - Neck Neck: normal ROM Carotids: bilateral: upstroke normal - Respiratory Respiratory: bilateral: diminished, wheezing (On fours expiration) - Cardiovascular Rhythm: regular Heart sounds: normal: S1, S2 - Gastrointestinal General gastrointestinal: soft - Neurologic Neurologic: CNII-XII intact - Musculoskeletal Musculoskeletal: gait normal, generalized weakness, strength equal bilaterally - Labs CBC & Chem 7: 06/30/19 07:10 06/30/19 07:10 Labs: Abnormal Lab Results - Last 24 Hours (Table) 06/29/19 06/29/19 06/29/19 Range/Units 06:45 16:29 16:56 MCV (80.0-100.0) fL Plt Count (150-450) k/uL Neutrophils # (1.3-7.7) k/uL Lymphocytes # (1.0-4.8) k/uL APTT 40.3 H (22.0-30.0) sec Sodium (137-145) mmol/L Glucose (74-99) mg/dL POC Glucose (mg/dL) 158 H (75-99) mg/dL Hemoglobin A1c 6.2 H (4.0-6.0) % 06/29/19 06/29/19 06/30/19 Range/Units 20:35 23:29 06:16 MCV (80.0-100.0) fL Plt Count (150-450) k/uL Neutrophils # (1.3-7.7) k/uL Lymphocytes # (1.0-4.8) k/uL APTT 41.4 H (22.0-30.0) sec Sodium (137-145) mmol/L Glucose (74-99) mg/dL POC Glucose (mg/dL) 148 H 156 H (75-99) mg/dL Hemoglobin A1c (4.0-6.0) % 06/30/19 06/30/19 06/30/19 Range/Units 07:10 07:10 07:10 MCV 100.3 H (80.0-100.0) fL Plt Count 132 L (150-450) k/uL Neutrophils # 9.2 H (1.3-7.7) k/uL Lymphocytes # 0.7 L (1.0-4.8) k/uL APTT 61.2 H (22.0-30.0) sec Sodium 135 L (137-145) mmol/L Glucose 158 H (74-99) mg/dL POC Glucose (mg/dL) (75-99) mg/dL Hemoglobin A1c (4.0-6.0) % 06/30/19 Range/Units 12:28 MCV (80.0-100.0) fL Plt Count (150-450) k/uL Neutrophils # (1.3-7.7) k/uL Lymphocytes # (1.0-4.8) k/uL APTT (22.0-30.0) sec Sodium (137-145) mmol/L Glucose (74-99) mg/dL POC Glucose (mg/dL) 132 H (75-99) mg/dL Hemoglobin A1c (4.0-6.0) % Microbiology - Last 24 Hours (Table) 06/28/19 08:42 Blood Culture - Preliminary Blood No Growth after 48 hours 06/28/19 18:23 Gram Stain - Final Sputum Sputum Culture - Final Assessment and Plan Assessment: Acute COPD exacerbation Purulent tracheobronchitis Morbid obesity Likely obstructive sleep apnea Elevated troponin Non-ST SEGMENT elevated [place] versus demand ischemia Plan: Continue antibiotics Continue IV steroids and breathing treatments Follow clinical course closely Cardio services following Possible cardiac cath and angiogram next week Time with Patient: Greater than 30
[2019-06-30 17:45] LABS: Glucose,Whole Blood 153 mg/dL (75-99)
[2019-06-30 19:53] LABS: Glucose,Whole Blood 206 mg/dL (75-99)
[2019-06-30] MEDS: ALBUTEROL HFA INHALER INHALATION SCH (20:10)
[2019-06-30] MEDS: hydrALAZINE HCL 50 MG TAB PO SCH (21:08)
--- NOTE | 2019-06-30 23:14 | PN ---
PROGRESS NOTE DATE OF SERVICE: 06/30/2019 REASON FOR FOLLOWUP: Tracheobronchitis and question of pneumonia. INTERVAL HISTORY: The patient is currently afebrile. He has been breathing comfortably on room air. Denies any chest pain. Minimal cough. No nausea, no vomiting. No abdominal pain. No diarrhea. PHYSICAL EXAMINATION: Blood pressure 137/84 with a pulse of 108, temperature 97.9. He is 95% on room air. General description: The patient is a middle-aged male lying in bed in no distress. Respiratory system: Unlabored breathing, decreased breath sounds at the base. No wheeze. HEART: S1, S2. Regular rate and rhythm. Abdomen soft, no tenderness. LABS: Hemoglobin 15.1, white count 10.3, BUN of 11, creatinine 0.74. DIAGNOSTIC IMPRESSION AND PLAN: Patient admitted to the hospital with shortness of breath which is likely multifactorial with possible component of chronic obstructive pulmonary disease exacerbation with tracheobronchitis clinically not behaving as pneumonia or COVID-19 infection. Patient clinically responding to the Rocephin and Zithromax to continue along with heparin and Solu-Medrol. Monitor clinical course closely. MMODL / IJN: [id number] /
--- NOTE | 2019-07-01 00:10 | PN ---
PROGRESS NOTE The patient has had hypertension acceleration over the last 24 hours. Add hydralazine 50 t.i.d. Cardiology is trying to stabilized him. He is being treated for pneumonia. He is going to have a heart catheterization on Tuesday. Lungs are clear. Cardiovascular S1-S2. Hematology negative Homans' ASSESSMENT AND PLAN: 1. Community-acquired pneumonia. 2. Elevated troponin. 3. Non ST elevation myocardial infarction. 4. Possible Covid infection. 5. Nicotine addiction. 6. Heart catheterization on Tuesday. 7. Continue with antibiotics, updraft treatments and steroids. MMODL / IJN: [id number] /
[2019-07-01 06:12] LABS: Glucose,Whole Blood 142 mg/dL (75-99)
[2019-07-01] MEDS: INSULIN ASPART (NovoLOG) 100 UNIT/ML VIAL SQ SCH ×4 (06:42→21:07)
[2019-07-01 06:44] LABS: Basophils % (A) 0 %; Eosinophils % (A) 0 %; HCT 47.9 % (39.0-53.0); HGB 15.6 gm/dL (13.0-17.5); Lymphocytes # (A) 0.9 k/uL (1.0-4.8); Lymphocytes % (A) 8 %; MCH 33.3 pg (25.0-35.0); MCHC 32.6 g/dL (31.0-37.0); MCV 101.9 fL (80.0-100.0); Macrocytosis Slight; Mean Platelet Volume 8.2; Monocytes # (A) 0.5 k/uL (0-1.0); Monocytes % (A) 4 %; Neutrophils # (A) 10.1 k/uL (1.3-7.7); Neutrophils % (A) 87 %; Platelet Count 154 k/uL (150-450); RDW 13.1 % (11.5-15.5); WBC 11.6 k/uL (3.8-10.6)
[2019-07-01] MEDS: HEPARIN SOD,PORK IN 0.45% NACL 25,000 UNIT in 0.45% NACL 1 250ML.BAG IV SCH ×2 (06:48→20:47)
[2019-07-01] MEDS: HYDROcodone/APAP 5-325MG 1 EACH TAB PO PRN ×3 (06:49→20:45)
[2019-07-01 07:16] LABS: Chloride 101 mmol/L (98-107); Glucose 152 mg/dL (74-99); Potassium 4.2 mmol/L (3.5-5.1); Sodium 133 mmol/L (137-145)
[2019-07-01 07:17] LABS: African American GFR (CKD) >90 (>60 ml/min/1.73 sqM); Anion Gap 8 mmol/L; Blood Urea Nitrogen 15 mg/dL (9-20); Calcium 9.7 mg/dL (8.4-10.2); Carbon Dioxide 24 mmol/L (22-30); Non-African American GFR(CKD) >90 (>60 ml/min/1.73 sqM)
[2019-07-01] MEDS: ALBUTEROL HFA INHALER INHALATION SCH ×4 (08:02→19:46)
--- NOTE | 2019-07-01 08:55 | XR ---
EXAMINATION TYPE: XR chest 2V DATE OF EXAM: 07/01/2019 HISTORY: pneumonia. REFERENCE: Previous study dated 06/29/2019. FINDINGS: There is a developing infiltrate at the left lung base. The right lung is clear. Pleural sp tyrone are clear. The heart is not enlarged. IMPRESSION: DEVELOPING INFILTRATE, LEFT LUNG BASE.
[2019-07-01] MEDS: amLODIPine 10 MG TAB PO SCH (09:56)
[2019-07-01] MEDS: AZITHROMYCIN 500 MG TAB PO SCH (09:56)
[2019-07-01] MEDS: NICOTINE 14MG/24HR PATCH TRANSDERM SCH (09:56)
[2019-07-01] MEDS: METOPROLOL TARTRATE 50 MG TAB PO SCH ×2 (09:57→20:45)
[2019-07-01] MEDS: methylPREDNISolone SOD SUCCI 40 MG/ML 1 ML VIAL IV SCH ×2 (09:57→20:45)
[2019-07-01] MEDS: ASPIRIN 81 MG PO SCH (09:57)
[2019-07-01] MEDS: hydrALAZINE HCL 25 MG TAB PO SCH ×3 (10:01→20:45)
[2019-07-01] MEDS: SODIUM CHLORIDE 0.9% 1,000 ML IV SCH (10:01)
[2019-07-01 11:47] LABS: Glucose,Whole Blood 136 mg/dL (75-99)
--- NOTE | 2019-07-01 11:48 | PN ---
PROGRESS NOTE This is a gentleman who came into the hospital with increasing shortness of breath, had a troponin elevation suggestive of non-ST elevation MS. He also had hypoxia. Possibility of this being a type 2 MS cannot be excluded. Patient has significant risk factors. Blood pressure control was suboptimal. He also has tachycardia. However, echocardiogram revealed preserved systolic function. I am recommending coronary angiography. There is also evidence of pneumonia as well. There is no evidence of any heart failure by echocardiogram. The systolic function is well preserved. I am recommending coronary angiography from right radial approach. The rationale, risks, benefits and options were carefully explained to the patient. He understands all details and wishes to proceed with the procedure. His blood pressure has improved but not quite optimal. I am increasing his hydralazine to 75 mg t.i.d. and I will check a CBC and BMP tomorrow morning. I will schedule cardiac catheterization in the morning from right radial approach. The patient understands the rationale, risks, benefits, options and wishes to proceed. Heart rate is about 86 beats per minute. Blood pressure is 140/90. There is no JVD. S1-S2 heard normally but distantly. Lungs reveal improved air entry, but there appears to be some left basal rales. Abdomen is distended. Lower extremities reveal diminished pulses, trace edema. Central nervous system: No focal deficits. IMPRESSION: 1. Bgi-HA-bhdiirvmu myocardial infarction. 2. Pneumonia. 3. Sleep apnea. 4. Obesity. 5. Hypertension. RECOMMENDATIONS: I am recommending coronary angiography and if indicated PCI. The patient has not been very compliant. He hardly took any medications and hypertension may be chronic and unaddressed. He understands the risks, benefits, options, rationale and wishes to proceed with cardiac catheterization. MMODL / IJN: [id number] /
[2019-07-01] MEDS: BENZONATATE 100 MG CAP PO SCH ×3 (12:41→20:46)
--- NOTE | 2019-07-01 12:46 | P.PN ---
Subjective Progress Note Date: 07/01/19 Principal diagnosis: Acute COPD exacerbation Purulent tracheobronchitis Morbid obesity Likely obstructive sleep apnea 07/01/2019, patient seen eval reexamined during the rounds patient has been doing well when he is awake and upright however when he goes on the bed tries to sleep developed choking in the throat likely related to sleep disorder breathing and sleep apnea which exacerbate symptoms of tracheobronchitis and cough, patient will be started on Tessalon Perles, continue current plan of care with bronchodilators and breathing treatments and antibiotics along with IV steroids 06/30/2019, patient seen eval examined breathing is stable left cough and congested patient is on heparin drip cardiovascular services considering cardiac cath and angiogram to his oxygen is improved to 96% on room air, Tuesday chest x-ray has been negative 06/29/2019, he shouldn't seen evaluated examined his still have shortness of breath but severity slightly improved has been having cough congestion and some sputum production which is moderate yellow, oxygenation is improved on 3 L 93% denies any chest pain abdominal pain denies any hemoptysis respiratory status slightly improved compared to yesterday his hemodynamics also appears to be slightly better white cell count is normal This is a 43-year-old morbidly obese male with extensive history of smoking and nicotine use patient's symptoms started about 2 weeks ago with upper respiratory type infection with increased cough congestion shortness present which has been progressive, up to a point that he started having chills and sweating fever in the last 3 days sputum starting turning yellow came into the hospital for further evaluation patient had a chest x-ray showed bilateral pneumonia, his influenza is negative and covid 19 is also negative, patient has been placed on antibiotics, computed tomography scan have been negative for any acute process Objective - Vital Signs Vital signs: Vital Signs Temp 98.0 F 07/01/19 08:00 Pulse 92 07/01/19 12:00 Resp 22 07/01/19 12:00 BP 155/99 07/01/19 08:00 Pulse Ox 97 07/01/19 08:00 Intake & Output 06/30/19 07/01/19 07/01/19 18:59 06:59 18:59 Intake Total 020.503 4498.071 Balance 572.544 3439.071 Weight 117.5 kg Intake: Intake, IV Titration 205.114 484.071 Amount Heparin Sod,Pork in 0.45% 205.114 484.071 NaCl 25,000 unit In 0.45 % NaCl 1 250ml.bag @ 6. 299 UNITS/KG/HR 10 mls/hr IV .Q24H [facility] Rx#: [id number] Oral 600 900 Other: Voiding Method Toilet Toilet # Voids 3 - Exam Constitutional General appearance: average body habitus, cooperative, disheveled, mild distress - EENT Eyes: EOMI, PERRLA Ears: bilateral: normal - Neck Neck: normal ROM Carotids: bilateral: upstroke normal - Respiratory Respiratory: bilateral: diminished, wheezing (On fours expiration) - Cardiovascular Rhythm: regular Heart sounds: normal: S1, S2 - Gastrointestinal General gastrointestinal: soft - Neurologic Neurologic: CNII-XII intact - Musculoskeletal Musculoskeletal: gait normal, generalized weakness, strength equal bilaterally - Labs CBC & Chem 7: 07/01/19 06:14 07/01/19 06:14 Labs: Abnormal Lab Results - Last 24 Hours (Table) 06/30/19 06/30/19 06/30/19 Range/Units 12:28 17:19 19:46 WBC (3.8-10.6) k/uL MCV (80.0-100.0) fL Neutrophils # (1.3-7.7) k/uL Lymphocytes # (1.0-4.8) k/uL APTT (22.0-30.0) sec Sodium (137-145) mmol/L Glucose (74-99) mg/dL POC Glucose (mg/dL) 132 H 153 H 206 H (75-99) mg/dL 07/01/19 07/01/19 07/01/19 Range/Units 06:10 06:14 06:14 WBC 11.6 H (3.8-10.6) k/uL MCV 101.9 H (80.0-100.0) fL Neutrophils # 10.1 H (1.3-7.7) k/uL Lymphocytes # 0.9 L (1.0-4.8) k/uL APTT 48.9 H (22.0-30.0) sec Sodium (137-145) mmol/L Glucose (74-99) mg/dL POC Glucose (mg/dL) 142 H (75-99) mg/dL 07/01/19 07/01/19 Range/Units 06:14 11:45 WBC (3.8-10.6) k/uL MCV (80.0-100.0) fL Neutrophils # (1.3-7.7) k/uL Lymphocytes # (1.0-4.8) k/uL APTT (22.0-30.0) sec Sodium 133 L (137-145) mmol/L Glucose 152 H (74-99) mg/dL POC Glucose (mg/dL) 136 H (75-99) mg/dL Microbiology - Last 24 Hours (Table) 06/28/19 08:42 Blood Culture - Preliminary Blood No Growth after 72 hours 06/28/19 18:23 Gram Stain - Final Sputum Sputum Culture - Final Assessment and Plan Assessment: Acute COPD exacerbation Purulent tracheobronchitis Morbid obesity Likely obstructive sleep apnea Elevated troponin Non-ST SEGMENT elevated [place] versus demand ischemia Plan: Continue antibiotics Continue IV steroids and breathing treatments Follow clinical course closely Cardio services following Possible cardiac cath and angiogram next week Continue the Tessalon Perles Sleep study on outpatient basis Time with Patient: Greater than 30
[2019-07-01 16:58] LABS: Glucose,Whole Blood 151 mg/dL (75-99)
[2019-07-01] MEDS: hydrALAZINE HCL 50 MG TAB PO SCH (17:00)
[2019-07-01] MEDS ORDERED: NITROGLYCERIN SL TABS 0.4 MG TAB SUBLINGUAL PRN (17:11)
[2019-07-01] MEDS ORDERED: ALPRAZolam 0.25 MG TAB PO PRN (17:11)
[2019-07-01] MEDS ORDERED: ATORVASTATIN 80 MG TAB PO STA (17:11)
[2019-07-01] MEDS ORDERED: SODIUM CHLORIDE 0.9% 1,000 ML in EMPTY BAG 1 BAG IV ONE (17:11)
[2019-07-01] MEDS ORDERED: ASPIRIN 325 MG TAB PO STA (17:11)
[2019-07-01 21:06] LABS: Glucose,Whole Blood 152 mg/dL (75-99)
--- NOTE | 2019-07-01 23:35 | PN ---
PROGRESS NOTE A 43-year-old white male, with a non-STEMI of questionable nature. He has been treated with COPD asthma and tracheobronchitis versus COVID infection undiagnosed with negative test x2. Breathing is still harsh with cough, congestion, shortness of breath. Continue with current medications for that. His pain is improving. He is going to get a heart catheterization pneumonia prior to discharge. LUNGS: Scattered rhonchi and wheeze. CARDIOVASCULAR: S1, S2. PSYCH: Fair mood and affect. He is ambulating around the room without getting out of breath. Temp 97.6, pulse is 90 to 92, respiratory rate 20 to 22, blood pressure is 156/105 with O2 of 96% on room air. Blood pressure medications will be given and possible treatment in the morning with heart catheterization and possible discharge home on oral antibiotics, steroids and breathing treatments. MMODL / IJN: [id number] /
--- NOTE | 2019-07-02 01:45 | PN ---
PROGRESS NOTE DATE OF SERVICE: 07/01/2019 REASON FOR FOLLOWUP: Tracheobronchitis and question of pneumonia. INTERVAL HISTORY: The patient is currently afebrile. He seems to be breathing more comfortably. Denies having any chest pain. He did have some cough. No sputum. No nausea, no vomiting. No abdominal pain or diarrhea. PHYSICAL EXAMINATION: Blood pressure is 140/83 with a pulse of 106, temperature 98.1. He is 96% on room air. General description is a middle-aged male lying in bed in no distress. RESPIRATORY SYSTEM: Unlabored breathing with decreased intensity of breath sounds. No wheeze. HEART: S1, S2. Regular rate and rhythm. ABDOMEN: Soft, no tenderness. LABS: Hemoglobin is 15.6, white count 11.6, BUN of 15, creatinine 0.76. DIAGNOSTIC IMPRESSION AND PLAN: Patient admitted to the hospital with difficulty breathing which is likely multifactorial in this patient possible tracheobronchitis clinically less likely pneumonia plus/minus chronic etiology in this patient who did have elevated troponin. Patient x-ray with left lower lobe infiltrate. Sputum has been usual respiratory hank. Currently covered with Rocephin and Zithromax to continue and monitor clinical course closely. MMODL / IJN: [id number] /
[2019-07-02] MEDS: HYDROcodone/APAP 5-325MG 1 EACH TAB PO PRN ×3 (01:47→23:24)
[2019-07-02] MEDS: SODIUM CHLORIDE 0.9% 1,000 ML IV SCH ×2 (05:52→11:22)
[2019-07-02] MEDS: amLODIPine 10 MG TAB PO SCH (05:53)
[2019-07-02] MEDS: ASPIRIN 81 MG PO SCH (05:53)
[2019-07-02] MEDS: BENZONATATE 100 MG CAP PO SCH ×3 (05:54→21:22)
[2019-07-02] MEDS: hydrALAZINE HCL 25 MG TAB PO SCH ×3 (05:54→21:22)
[2019-07-02] MEDS: methylPREDNISolone SOD SUCCI 40 MG/ML 1 ML VIAL IV SCH ×2 (05:54→21:21)
[2019-07-02] MEDS: AZITHROMYCIN 500 MG TAB PO SCH (05:54)
[2019-07-02] MEDS: METOPROLOL TARTRATE 50 MG TAB PO SCH ×2 (05:54→21:22)
[2019-07-02] MEDS: NICOTINE 14MG/24HR PATCH TRANSDERM SCH (05:58)
[2019-07-02] MEDS ORDERED: ATORVASTATIN 80 MG TAB PO ONE (06:00)
[2019-07-02] MEDS ORDERED: ASPIRIN 325 MG TAB PO ONE (06:00)
[2019-07-02] MEDS: HEPARIN SOD,PORK IN 0.45% NACL 25,000 UNIT in 0.45% NACL 1 250ML.BAG IV SCH (06:02)
[2019-07-02] MEDS: INSULIN ASPART (NovoLOG) 100 UNIT/ML VIAL SQ SCH ×4 (06:05→21:21)
[2019-07-02 06:15] LABS: Basophils % (A) 0 %; Eosinophils % (A) 0 %; HCT 50.4 % (39.0-53.0); Lymphocytes # (A) 1.5 k/uL (1.0-4.8); Lymphocytes % (A) 10 %; MCH 34.2 pg (25.0-35.0); MCHC 33.7 g/dL (31.0-37.0); MCV 101.3 fL (80.0-100.0); Macrocytosis Slight; Mean Platelet Volume 8.3; Monocytes # (A) 0.7 k/uL (0-1.0); Monocytes % (A) 5 %; Neutrophils # (A) 12.9 k/uL (1.3-7.7); Neutrophils % (A) 85 %; Platelet Count 189 k/uL (150-450); RBC 4.98 m/uL (4.30-5.90); RDW 13.3 % (11.5-15.5); WBC 15.3 k/uL (3.8-10.6)
[2019-07-02 06:26] LABS: Glucose,Whole Blood 181 mg/dL (75-99)
[2019-07-02 07:22] LABS: ALT 84 U/L (4-49); AST 85 U/L (17-59); African American GFR (CKD) >90 (>60 ml/min/1.73 sqM); Albumin 4.7 g/dL (3.5-5.0); Alkaline Phosphatase 102 U/L (38-126); Anion Gap 13 mmol/L; Blood Urea Nitrogen 16 mg/dL (9-20); Calcium 9.9 mg/dL (8.4-10.2); Carbon Dioxide 21 mmol/L (22-30); Chloride 101 mmol/L (98-107); Glucose 129 mg/dL (74-99); Non-African American GFR(CKD) >90 (>60 ml/min/1.73 sqM); Potassium 4.3 mmol/L (3.5-5.1); Sodium 135 mmol/L (137-145); Total Bilirubin 0.8 mg/dL (0.2-1.3); Total Protein 8.6 g/dL (6.3-8.2)
[2019-07-02] MEDS: ALBUTEROL HFA INHALER INHALATION SCH ×4 (07:29→19:50)
[2019-07-02] MEDS ORDERED: ASPIRIN 325 MG TAB PO STA (08:02)
[2019-07-02] MEDS ORDERED: SODIUM CHLORIDE 0.9% 1,000 ML in EMPTY BAG 1 BAG IV ONE (08:02)
[2019-07-02] MEDS ORDERED: ATORVASTATIN 80 MG TAB PO STA (08:02)
[2019-07-02] MEDS ORDERED: ALPRAZolam 0.25 MG TAB PO PRN (08:02)
[2019-07-02] MEDS ORDERED: ALPRAZolam 0.5 MG TAB PO PRN (08:02)
[2019-07-02] MEDS ORDERED: NITROGLYCERIN SL TABS 0.4 MG TAB SUBLINGUAL PRN (08:02)
[2019-07-02] MEDS ORDERED: LIDOCAINE 1% INJ 10MG/ML (20 ML MDV) ONE (09:14)
[2019-07-02] MEDS ORDERED: VERAPAMIL 2.5 MG/ML 2 ML AMP ONE (09:14)
[2019-07-02] MEDS ORDERED: IV FLUID CONTINUATION 300 ML IV ONE (09:15)
[2019-07-02] MEDS ORDERED: HEPARIN SODIUM 1,000 UN/ML (10ML VL) ONE (09:25)
[2019-07-02] MEDS ORDERED: NITROGLYCERIN SL TABS 0.4 MG TAB SUBLINGUAL ONE ×3 (09:39→09:40)
[2019-07-02] MEDS ORDERED: MIDAZOLAM 2 MG/2 ML VIAL IVP ONE (09:40)
[2019-07-02] MEDS ORDERED: LIDOCAINE 1% INJ 10MG/ML (20 ML MDV) SQ ONE (09:45)
[2019-07-02] MEDS ORDERED: VERAPAMIL SYRINGE (5 MG/10 ML) INTRAARTER ONE (09:47)
[2019-07-02] MEDS ORDERED: HEPARIN SODIUM 1,000 UN/ML (10ML VL) IV ONE (09:49)
[2019-07-02] MEDS ORDERED: BIVALIRUDIN BOLUS 250 MG/50 ML IV ONE ×2 (10:01)
[2019-07-02] MEDS ORDERED: BIVALIRUDIN 250 MG in SODIUM CHLORIDE 0.9% 50 ML IV ONE (10:02)
[2019-07-02] MEDS ORDERED: IOPAMIDOL-370 100ML BTL INJ ONE ×2 (10:05→10:28)
[2019-07-02] MEDS ORDERED: TICAGRELOR 90 MG TAB ONE (10:15)
[2019-07-02] MEDS: NITROGLYCERIN 1000MCG/10ML SYRINGE INTRACORON ONE ×2 (10:19→10:27)
[2019-07-02] MEDS ORDERED: TICAGRELOR 90 MG TAB PO ONE (10:19)
[2019-07-02] MEDS ORDERED: ATROPINE SULFATE 0.1 MG/ML 10ML SYRINGE IV PRN (10:51)
[2019-07-02] MEDS ORDERED: RX INFO: IV CONTRAST WAS GIVEN 1 EACH MISC MISCELLANE PRN (10:51)
[2019-07-02] MEDS ORDERED: ZOLPIDEM 5 MG TAB PO PRN (10:51)
[2019-07-02] MEDS ORDERED: MAG HYDROX/AL HYDROX/SIMETH 30 ML CUP PO PRN (10:51)
--- NOTE | 2019-07-02 10:53 | CDI ---
Documentation Clarification Form Date: 07/03/2019 10:13:48 AM From: Mita Devlin RN CCDS Admit Date: 06/28/2019 11:32:00 AM Patient Name: Issa Yuan Visit Number: [id number] Discharge Date: ATTENTION: The Clinical Documentation Specialists (CDI) and [facility] Coding Staff appreciate your assistance in clarifying documentation. Please respond to the clarification below the line at the bottom and electronically sign. The CDI & [facility] Coding staff will review the response and follow-up if needed. Please note: Queries are made part of the Legal Health Record. If you have any questions, please contact the author of this message via ITS. Dr. Don Peralta Coding guidelines do not allow coding professionals to code based on laboratory results; therefore, your input is requested. The COVID-19 test obtained on 06/27 was reported as Negative on 06/27 tested twice. Possibly could still have have COVID even though it is a negative test x2 in H&P 06/27 Patient history/risk factors: 44-year-old male presents to the ED with fatigue, shortness of breath, chest pain, cough, with chills and sweats. Medical history of Current smoker and HTN. Clinical Indicators 06/27 CXR suspected COVID 19 pneumonia 06/27 VS in ED Triage: T: 97.9, P: 125, R 20 , Sat 99% on room air 06/27 Wbc 8.2 Treatment: Pulmonary consult 06/27 Acute COPD exacerbation Purulent tracheobronchitis 06/27 Zithromax Ivpb x1, 06/28 Azithromycin po daily 06/27 Plaquenil po Bid d/c 07/01 In order to capture the severity of condition, please clarify the COVID-19 status: COVID-19 confirmed False negative, treating for COVID-19 based on these clinical indicators: ____ COVID-19 ruled out Other, please specify Response documented in Attending Progress Note 07/02 Evette showed bilateral pneumonia, his influenza is negative and covid 19 is also negative, (Last Form Revision: May 2019) [place]
[2019-07-02 11:09] LABS: Glucose,Whole Blood 140 mg/dL (75-99)
--- NOTE | 2019-07-02 11:16 | CC ---
CARDIAC CATHETERIZATION REPORT DATE OF SERVICE: 07/02/2019 PROCEDURE: 1. Left heart catheterization and coronary angiography. 2. PTCA and stenting of a 95% occluded obtuse marginal branch of circumflex with a drug-eluting stent. PERFORMED BY: Dr. Oh Clark. Moderate conscious sedation time was 48 minutes. Patient was administered Versed. Oxygen saturation, hemodynamics and EKG were monitored closely. CLINICAL INFORMATION: Mr. Issa Yuan is a 43-year-old morbidly obese gentleman who has history of hypertension, but has not been taking any medications. He also probably has sleep apnea syndrome. He came into the hospital with chest pain, shortness of breath, had a troponin elevation suggestive of non-ST elevation RI. He also was hypoxic for a while. There was a question of pneumonia as well. After stabilizing him and achieving a decent rate control and BP control, he was advised coronary angiography given his presentation with a non-ST elevation RI and EKG changes were not easily evident. Risks, benefits, options, rationale were explained. PROCEDURE NOTE: Under local anesthesia and strict aseptic precautions, a 6-Faroese introducer was placed in the right radial artery. Using a JR4 and JL4 catheters I performed coronary angiography and the same right catheter was used to check LV pressures. LV gram was not performed. Following the diagnostic catheterization, I performed PCI of circumflex expeditiously. CARDIAC CATHETERIZATION FINDINGS: The left ventricular end-diastolic pressure was 13 mmHg without any gradient across the aortic valve. CORONARY ANGIOGRAPHY FINDINGS: RIGHT CORONARY ARTERY: Technically a dominant vessel that is free of significant disease, has minor irregularities, supplies a sizable amount of myocardium. Distally bifurcates into a large PDA and a smaller PLV branch. No significant disease in the RCA system which is a dominant system. LEFT MAIN CORONARY ARTERY: Short patent disease-free vessel that bifurcates into LAD and circumflex. LEFT ANTERIOR DESCENDING CORONARY ARTERY: Good caliber vessel, extends along the anterior wall, gives off septal and diagonal branches, runs all the way to the apex and supplies the inferoapical portion of the left ventricle. No significant disease in the LAD system. LEFT POSTERIOR CIRCUMFLEX CORONARY ARTERY: Technically, this is a nondominant vessel, gives off a good-sized obtuse marginal that runs laterally. The caliber and distribution of obtuse marginal are large in the proximal portion after comes off the circumflex. There is an eccentric 95% stenosis which I believe is a culprit lesion. Continuation of circumflex in the distal posterolateral branch are free of significant disease. The circumflex has a fairly long area of disease with a focal 95% stenosis in the obtuse marginal. Left ventriculogram was not performed. IMPRESSION: This patient has normal filling pressures. No gradient across the aortic valve. A right-dominant system with significant disease in the circumflex marginal of 95%. RCA and LAD are free of significant disease. The left main is free of significant disease. LV gram was not performed. RECOMMENDATIONS: I recommended PCI of the circumflex marginal and proceeded to perform this in the same setting. PCI PROCEDURE DETAILS: Initially, I tried a JL4 then switched over to a JL3.5 guide catheter to cannulate the left coronary artery. A run-through wire was used to cross the lesion. A 3.0 NC Trek balloon was used to pre-dilate the lesion. I then deployed a 15 mm long 3.0 caliber Xience stent in the lesion. Proximal end of the lesion still had some haziness. I addressed this with another 12 mm 3.0 caliber Xience stent. Therefore, there were 2 Xience stents deployed, proximally with a 3.0, 12 and distally with a 3.0, 15. Both these stents were overlapped. Excellent angiographic result was achieved without complication. Patient tolerated the procedure well. He had mild chest discomfort but did not have any EKG changes. The sheath was then taken out and TR band applied as per protocol with saturation of the fingers of the right hand of 95%. Patient tolerated procedure well without complication. Results were discussed with the patient. There was no family members available and he did not wish that I call any of his family members and he will make the phone call himself. I expect the patient to be discharged in the next 24 to 48 hours. MMODL / IJN: [id number] /
[2019-07-02 13:40] VITALS: BMI 31.5
[2019-07-02 16:42] LABS: Glucose,Whole Blood 134 mg/dL (75-99)
[2019-07-02 21:11] LABS: Glucose,Whole Blood 145 mg/dL (75-99)
[2019-07-02] MEDS: TICAGRELOR 90 MG TAB PO SCH (21:22)
--- NOTE | 2019-07-02 23:19 | PN ---
PROGRESS NOTE Left heart catheterization and he had a PTCA and stenting of an occluded marginal branch of circumflex with drug-eluting stent. His breathing is improving. He will be discharged home tomorrow. Medications are re-evaluated. LUNGS: Show scattered rhonchi and wheeze. CARDIOVASCULAR: S1, S2. ABDOMEN: Distended, obesity. HEMATOLOGY: Negative Homans. ASSESSMENT: 1. Asthma. 2. Tracheobronchitis exacerbation. 3. Coronary artery disease, status post stent. Please see current treatment. Follow up in next 24 to 48 hours. MMODL / IJN: [id number] /
--- NOTE | 2019-07-02 23:43 | PN ---
PROGRESS NOTE DATE OF SERVICE: 07/02/2019 REASON FOR FOLLOWUP: Tracheobronchitis/pneumonia. INTERVAL HISTORY: The patient is currently afebrile. He is breathing slightly comfortably. Did have some cough. Occasional sputum. No nausea, no vomiting. No abdominal pain or diarrhea. PHYSICAL EXAMINATION: Blood pressure 113/86 with a pulse of 110, temperature 98.3. He is 98% on room air. General description is a middle-aged male, lying in bed, in no distress. RESPIRATORY SYSTEM: Unlabored breathing, coarse breath sounds at the bases. No wheeze. HEART: S1, S2. Regular rate and rhythm. ABDOMEN: Soft, no tenderness. LABS: Hemoglobin 17, white count 15.3, BUN of 16, creatinine 0.80. Sputum has been usual respiratory hank. DIAGNOSTIC IMPRESSION AND PLAN: Patient admitted to the hospital with shortness of breath which is multifactorial with concern for possible tracheobronchitis/pneumonia . Sputum has been usual respiratory hank. Patient is currently covered with Zithromax. Rocephin has been discontinued. Monitor his clinical course closely. MMODL / IJN: [id number] /
[2019-07-03 06:11] LABS: Glucose,Whole Blood 142 mg/dL (75-99)
[2019-07-03] MEDS: INSULIN ASPART (NovoLOG) 100 UNIT/ML VIAL SQ SCH ×4 (06:26→21:29)
[2019-07-03 06:31] LABS: Basophils % (A) 0 %; Eosinophils # (A) 0.1 k/uL (0-0.7); Eosinophils % (A) 1 %; HGB 17.1 gm/dL (13.0-17.5); Lymphocytes % (A) 7 %; MCH 33.9 pg (25.0-35.0); MCHC 32.8 g/dL (31.0-37.0); MCV 103.3 fL (80.0-100.0); Macrocytosis Slight; Mean Platelet Volume 8.2; Monocytes # (A) 0.7 k/uL (0-1.0); Monocytes % (A) 5 %; Neutrophils # (A) 12.1 k/uL (1.3-7.7); Neutrophils % (A) 86 %; Platelet Count 186 k/uL (150-450); RBC 5.03 m/uL (4.30-5.90); RDW 13.5 % (11.5-15.5); WBC 14.1 k/uL (3.8-10.6)
[2019-07-03 06:41] LABS: African American GFR (CKD) >90 (>60 ml/min/1.73 sqM); Anion Gap 11 mmol/L; Blood Urea Nitrogen 19 mg/dL (9-20); Calcium 9.9 mg/dL (8.4-10.2); Carbon Dioxide 22 mmol/L (22-30); Chloride 100 mmol/L (98-107); Glucose 139 mg/dL (74-99); Non-African American GFR(CKD) >90 (>60 ml/min/1.73 sqM); Potassium 4.4 mmol/L (3.5-5.1); Sodium 133 mmol/L (137-145)
[2019-07-03] MEDS: ALBUTEROL HFA INHALER INHALATION SCH ×4 (07:54→19:50)
[2019-07-03] MEDS: ATORVASTATIN 80 MG TAB PO SCH (08:58)
[2019-07-03] MEDS: METOPROLOL TARTRATE 50 MG TAB PO SCH ×2 (08:58→21:30)
[2019-07-03] MEDS: hydrALAZINE HCL 25 MG TAB PO SCH (08:58)
[2019-07-03] MEDS: ASPIRIN 81 MG PO SCH (08:58)
[2019-07-03] MEDS: amLODIPine 10 MG TAB PO SCH (08:59)
[2019-07-03] MEDS: BENZONATATE 100 MG CAP PO SCH ×3 (08:59→21:22)
[2019-07-03] MEDS: AZITHROMYCIN 500 MG TAB PO SCH (08:59)
[2019-07-03] MEDS: TICAGRELOR 90 MG TAB PO SCH ×2 (08:59→21:22)
[2019-07-03] MEDS: NICOTINE 14MG/24HR PATCH TRANSDERM SCH (08:59)
[2019-07-03] MEDS: methylPREDNISolone SOD SUCCI 40 MG/ML 1 ML VIAL IV SCH ×2 (09:00→21:30)
--- NOTE | 2019-07-03 10:14 | PN ---
PROGRESS NOTE Mr. Yuan is a 43-year-old male who presented with symptoms of progressive dyspnea and had evidence of non ST-segment elevation myocardial infarction. He underwent cardiac catheterization yesterday by Dr. Oh Clark and was found to have significant obstructive disease involving the left circumflex, the obtuse marginal branch, underwent stenting of that vessel. He is doing quite well this morning. His breathing is stable. He denies any dizziness, palpitation. He denies any nausea. He has been ambulating without difficulty. He continues to be on aspirin 81 mg daily, Lipitor 80 mg daily, hydralazine 75 mg 3 times a day, metoprolol tartrate 100 mg twice a day, and Brilinta 90 mg twice a day. PHYSICAL EXAMINATION: Blood pressure 125/70 with a heart rate in 70s. LUNGS: Clear. HEART: Regular rate and rhythm, S1, S2. No S3. No rub. ABDOMEN: Soft, obese, nontender. EXTREMITIES: No edema, right radial pulse intact. LAB DATA: Revealed BUN and creatinine 19 and 0.87, potassium 4.4. IMPRESSION: 1. Status post stenting of the left circumflex in the setting of non STEMI. 2. Pneumonia. 3. Dyspnea on exertion. 4. Obesity. 5. Hypertension. 6. Hyperlipidemia. RECOMMENDATION: From the cardiac standpoint, the patient is stable. He may be able to be discharged home today and followed as an outpatient with Dr. Oh Clark. MMVINCEL / IJN: [id number] /
[2019-07-03] MEDS: SODIUM CHLORIDE 0.9% 1,000 ML IV SCH ×4 (10:26→23:03)
[2019-07-03 11:31] LABS: Glucose,Whole Blood 135 mg/dL (75-99)
--- NOTE | 2019-07-03 13:15 | P.PN ---
Subjective Progress Note Date: 07/03/19 Principal diagnosis: Acute COPD exacerbation Purulent tracheobronchitis Morbid obesity Likely obstructive sleep apnea 07/03/2019, patient seen eval examined during the rounds breathing and cough have improved significantly patient is post cardiac cath and 2 stent placement in circumflex breathing patient likely has sleep disorder breathing and sleep apnea in [place] evaluated for sleep apnea 07/01/2019, patient seen eval reexamined during the rounds patient has been doing well when he is awake and upright however when he goes on the bed tries to sleep developed choking in the throat likely related to sleep disorder breathing and sleep apnea which exacerbate symptoms of tracheobronchitis and cough, patient will be started on Tessalon Perles, continue current plan of care with bronchodilators and breathing treatments and antibiotics along with IV steroids 06/30/2019, patient seen eval examined breathing is stable left cough and congested patient is on heparin drip cardiovascular services considering cardiac cath and angiogram to his oxygen is improved to 96% on room air, Tuesday chest x-ray has been negative 06/29/2019, he shouldn't seen evaluated examined his still have shortness of breath but severity slightly improved has been having cough congestion and some sputum production which is moderate yellow, oxygenation is improved on 3 L 93% denies any chest pain abdominal pain denies any hemoptysis respiratory status slightly improved compared to yesterday his hemodynamics also appears to be slightly better white cell count is normal This is a 43-year-old morbidly obese male with extensive history of smoking and nicotine use patient's symptoms started about 2 weeks ago with upper respiratory type infection with increased cough congestion shortness present which has been progressive, up to a point that he started having chills and sweating fever in the last 3 days sputum starting turning yellow came into the hospital for further evaluation patient had a chest x-ray showed bilateral pneumonia, his influenza is negative and covid 19 is also negative, patient has been placed on antibiotics, computed tomography scan have been negative for any acute process Objective - Vital Signs Vital signs: Vital Signs Temp 97.9 F 07/03/19 08:00 Pulse 92 07/03/19 12:00 Resp 18 07/03/19 12:00 BP 150/99 07/03/19 12:00 Pulse Ox 95 07/03/19 12:00 Intake & Output 07/02/19 07/03/19 07/03/19 18:59 06:59 18:59 Intake Total 387.969 480 Output Total 700 Balance -312.031 480 Weight 117.5 kg 117.5 kg Intake: IV 200 Intake, IV Titration 67.969 Amount Heparin Sod,Pork in 0.45% 67.969 NaCl 25,000 unit In 0.45 % NaCl 1 250ml.bag @ 6. 299 UNITS/KG/HR 10 mls/hr IV .Q24H [facility] Rx#: [id number] Oral 120 480 Output: Urine 700 Other: Voiding Method Toilet Toilet Toilet # Voids 1 4 2 - Exam Constitutional General appearance: average body habitus, cooperative, disheveled, mild distress - EENT Eyes: EOMI, PERRLA Ears: bilateral: normal - Neck Neck: normal ROM Carotids: bilateral: upstroke normal - Respiratory Respiratory: bilateral: diminished, wheezing (On fours expiration) - Cardiovascular Rhythm: regular Heart sounds: normal: S1, S2 - Gastrointestinal General gastrointestinal: soft - Neurologic Neurologic: CNII-XII intact - Musculoskeletal Musculoskeletal: gait normal, generalized weakness, strength equal bilaterally - Labs CBC & Chem 7: 07/03/19 06:05 07/03/19 06:05 Labs: Abnormal Lab Results - Last 24 Hours (Table) 07/02/19 07/02/19 07/03/19 Range/Units 16:40 21:10 06:05 WBC 14.1 H (3.8-10.6) k/uL MCV 103.3 H (80.0-100.0) fL Neutrophils # 12.1 H (1.3-7.7) k/uL Sodium (137-145) mmol/L Glucose (74-99) mg/dL POC Glucose (mg/dL) 134 H 145 H (75-99) mg/dL 07/03/19 07/03/19 07/03/19 Range/Units 06:05 06:10 11:23 WBC (3.8-10.6) k/uL MCV (80.0-100.0) fL Neutrophils # (1.3-7.7) k/uL Sodium 133 L (137-145) mmol/L Glucose 139 H (74-99) mg/dL POC Glucose (mg/dL) 142 H 135 H (75-99) mg/dL Microbiology - Last 24 Hours (Table) 06/28/19 08:42 Blood Culture - Preliminary Blood No Growth after 120 hours Assessment and Plan Assessment: Coronary artery disease status post stent 2 in circumflex Acute COPD exacerbation Purulent tracheobronchitis Morbid obesity Likely obstructive sleep apnea Elevated troponin Non-ST SEGMENT elevated [place] Plan: Continue antibiotics, changed to by mouth at time of discharge Continue IV steroids, changed to by mouth at the time of discharge and breathing treatments Follow clinical course closely Cardio services following Reviewed cardiac cath and angiogram findings Continue the Tessalon [place] as needed Sleep study on outpatient basis Time with Patient: Greater than 30
[2019-07-03] MEDS: HYDROcodone/APAP 5-325MG 1 EACH TAB PO PRN ×2 (14:54→21:22)
[2019-07-03] MEDS: ALPRAZolam 0.5 MG TAB PO PRN ×2 (14:55→21:21)
[2019-07-03 15:34] VITALS: RESP 26
--- NOTE | 2019-07-03 16:47 | P.PN ---
Subjective Progress Note Date: 07/03/19 THis is a 43-year-old gentleman status post left heart cath with PTCA, stenting of OM of circumflex. Tolerated procedure well. Complains of sleep deprivation. Denies cough, breathing improving. Telemetry sinus rhythm. Denies chest pain, palpitations or shortness of breath. Denies lightheadedness, dizziness or focal deficits. Objective - Vital Signs Vital signs: Vital Signs Temp 97.9 F 07/03/19 08:00 Pulse 118 H 07/03/19 15:32 Resp 26 H 07/03/19 15:35 BP 121/71 07/03/19 15:32 Pulse Ox 96 07/03/19 15:32 Intake & Output 07/02/19 07/03/19 07/03/19 18:59 06:59 18:59 Intake Total 387.969 480 Output Total 700 Balance -312.031 480 Weight 117.5 kg 117.5 kg Intake: IV 200 Intake, IV Titration 67.969 Amount Heparin Sod,Pork in 0.45% 67.969 NaCl 25,000 unit In 0.45 % NaCl 1 250ml.bag @ 6. 299 UNITS/KG/HR 10 mls/hr IV .Q24H [facility] Rx#: [id number] Oral 120 480 Output: Urine 700 Other: Voiding Method Toilet Toilet Toilet # Voids 1 4 2 - Exam PHYSICAL EXAM: VITAL SIGNS: As above GENERAL: Sitting up in bed, no acute distress HEENT: Conjunctivae normal. Prostatic eye. Oral mucosa moist. NECK: No JVD. No thyroid enlargement. No LNs CARDIOVASCULAR: S1, S2 regular.. No murmur RESPIRATION: Breath sounds diminished in the bases. No rhonchi or crackles. Occasional fine expiratory wheezing ABDOMEN: Soft, obese, distended, nontender . No guarding. no masses palpable. No ascites, No hepatosplenomegaly.Bowel sounds heard. LEGS: No edema. no swelling PSYCHIATRY: Alert and oriented X3, mood and affect normal. NERVOUS SYSTEM: Cranial N 2-12 grossly normal. Moves all 4 limbs. No focal deficits. Strength and sensation grossly intact.. Skin: no rash , warm and dry - Labs CBC & Chem 7: 07/03/19 06:05 07/03/19 06:05 Labs: Abnormal Lab Results - Last 24 Hours (Table) 07/02/19 07/02/19 07/03/19 Range/Units 16:40 21:10 06:05 WBC 14.1 H (3.8-10.6) k/uL MCV 103.3 H (80.0-100.0) fL Neutrophils # 12.1 H (1.3-7.7) k/uL Sodium (137-145) mmol/L Glucose (74-99) mg/dL POC Glucose (mg/dL) 134 H 145 H (75-99) mg/dL 07/03/19 07/03/19 07/03/19 Range/Units 06:05 06:10 11:23 WBC (3.8-10.6) k/uL MCV (80.0-100.0) fL Neutrophils # (1.3-7.7) k/uL Sodium 133 L (137-145) mmol/L Glucose 139 H (74-99) mg/dL POC Glucose (mg/dL) 142 H 135 H (75-99) mg/dL Microbiology - Last 24 Hours (Table) 06/28/19 08:42 Blood Culture - Preliminary Blood No Growth after 120 hours Assessment and Plan Assessment: Acute chest pain, acute NSTEMI, status post cardiac cath with PTCA, stenting 2 of OM branch of circumflex Acute COPD exacerbation with tracheobronchitis Hypertension Hyperlipidemia Anxiety Nicotine dependence Marijuana use Morbid obesity, BMI 31.5 Possible obstructive sleep apnea Plan: Continue on current medication regime ,monitoring and symptomatic treatment. Complains of insomnia, scheduled Ambien ordered. Maintain IV steroids, nebulized bronchodilators, antibiotics for another 24 hours as per pulmonary. Discharge planning in progress for tomorrow pending pulmonary clearance. The impression and plan of care has been dictated as directed. : I performed a history and examination of this patient, discussed the same with the dictator. I agree with the dictator's note ,documented as a scribe. Any additional findings or plans will be noted.
[2019-07-03 20:43] LABS: Glucose,Whole Blood 107 mg/dL (75-99)
[2019-07-03] MEDS ORDERED: ZOLPIDEM 5 MG TAB PO SCH (21:00)
[2019-07-03] MEDS ORDERED: hydrALAZINE HCL 25 MG TAB PO SCH (21:00)
[2019-07-03] MEDS: hydrALAZINE HCL 50 MG TAB PO SCH (21:29)
[2019-07-04] MEDS: INSULIN ASPART (NovoLOG) 100 UNIT/ML VIAL SQ SCH ×2 (06:33→12:20)
[2019-07-04 07:16] LABS: Glucose,Whole Blood 112 mg/dL (75-99)
[2019-07-04] MEDS: METOPROLOL TARTRATE 50 MG TAB PO SCH (08:02)
[2019-07-04] MEDS: ALBUTEROL HFA INHALER INHALATION SCH ×3 (08:02→15:24)
[2019-07-04] MEDS: methylPREDNISolone SOD SUCCI 40 MG/ML 1 ML VIAL IV SCH (08:20)
[2019-07-04] MEDS: amLODIPine 10 MG TAB PO SCH (08:21)
[2019-07-04] MEDS: hydrALAZINE HCL 50 MG TAB PO SCH (08:21)
[2019-07-04] MEDS: BENZONATATE 100 MG CAP PO SCH (08:21)
[2019-07-04] MEDS: NICOTINE 14MG/24HR PATCH TRANSDERM SCH (08:21)
[2019-07-04] MEDS: ASPIRIN 81 MG PO SCH (08:21)
[2019-07-04] MEDS: AZITHROMYCIN 500 MG TAB PO SCH (08:21)
[2019-07-04] MEDS: TICAGRELOR 90 MG TAB PO SCH (08:21)
[2019-07-04] MEDS: ATORVASTATIN 80 MG TAB PO SCH (08:21)
[2019-07-04 08:32] VITALS: TEMP 97.3
[2019-07-04] MEDS: HYDROcodone/APAP 5-325MG 1 EACH TAB PO PRN (08:39)
--- NOTE | 2019-07-04 09:29 | P.PN ---
Subjective Progress Note Date: 07/04/19 Principal diagnosis: Acute COPD exacerbation Purulent tracheobronchitis Morbid obesity Likely obstructive sleep apnea 07/04/2019, patient seen and evaluated examined during the rounds has been doing well less cough congestion is present from respiratory standpoint doing very w letitia, I have talked to him about sleep study patient currently does not want to do sleep study because of lack of insurance, he has some episodes of the sinus pauses last night awaiting input from cardiovascular services 07/03/2019, patient seen eval examined during the rounds breathing and cough pedro ve improved significantly patient is post cardiac cath and 2 stent placement in circumflex breathing patient likely has sleep disorder breathing and sleep apnea in [place] evaluated for sleep apnea 07/01/2019, patient seen eval reexamined during the rounds patient has been doing well when he is awake and upright however when he goes on the bed tries to sleep developed choking in the throat likely related to sleep disorder breathing and sleep apnea which exacerbate symptoms of tracheobronchitis and cough, patient will be started on Tessalon Perles, continue current plan of care with bronchodilators and breathing treatments and antibiotics along with IV steroids 06/30/2019, patient seen eval examined breathing is stable left cough and congested patient is on heparin drip cardiovascular services considering cardiac cath and angiogram to his oxygen is improved to 96% on room air, Tuesday chest x-ray has been negative 06/29/2019, he shouldn't seen evaluated examined his still have shortness of breath but severity slightly improved has been having cough congestion and some sputum production which is moderate yellow, oxygenation is improved on 3 L 93% denies any chest pain abdominal pain denies any hemoptysis respiratory status slightly improved compared to yesterday his hemodynamics also appears to be slightly better white cell count is normal This is a 43-year-old morbidly obese male with extensive history of smoking and nicotine use patient's symptoms started about 2 weeks ago with upper respiratory type infection with increased cough congestion shortness present which has been progressive, up to a point that he started having chills and sweating fever in the last 3 days sputum starting turning yellow came into the hospital for further evaluation patient had a chest x-ray showed bilateral pneumonia, his influenza is negative and covid 19 is also negative, patient has been placed on antibiotics, computed tomography scan have been negative for any acute process Objective - Vital Signs Vital signs: Vital Signs Temp 97.3 F L 07/04/19 08:00 Pulse 104 H 07/04/19 08:00 Resp 26 H 07/04/19 08:00 BP 132/65 07/04/19 08:00 Pulse Ox 97 07/04/19 08:00 Intake & Output 07/03/19 07/04/19 07/04/19 18:59 06:59 18:59 Intake Total 480 Balance 480 Intake: Oral 480 Other: Voiding Method Toilet # Voids 2 1 - Exam Constitutional General appearance: average body habitus, cooperative, disheveled, mild distress - EENT Eyes: EOMI, PERRLA Ears: bilateral: normal - Neck Neck: normal ROM Carotids: bilateral: upstroke normal - Respiratory Respiratory: bilateral: diminished, wheezing (On fours expiration) - Cardiovascular Rhythm: regular Heart sounds: normal: S1, S2 - Gastrointestinal General gastrointestinal: soft - Neurologic Neurologic: CNII-XII intact - Musculoskeletal Musculoskeletal: gait normal, generalized weakness, strength equal bilaterally - Labs CBC & Chem 7: 07/03/19 06:05 07/03/19 06:05 Labs: Abnormal Lab Results - Last 24 Hours (Table) 07/03/19 07/03/19 07/04/19 Range/Units 11:23 20:42 07:15 POC Glucose (mg/dL) 135 H 107 H 112 H (75-99) mg/dL Microbiology - Last 24 Hours (Table) 06/28/19 08:42 Blood Culture - Preliminary Blood No Growth after 120 hours Assessment and Plan Assessment: Coronary artery disease status post stent 2 in circumflex Intermittent sinus pauses Acute COPD exacerbation Purulent tracheobronchitis Morbid obesity Likely obstructive sleep apnea Elevated troponin Non-ST SEGMENT elevated GA Plan: Awaiting recommendation from cardiovascular services Continue antibiotics, changed to by mouth at time of discharge Continue IV steroids, changed to by mouth at the time of discharge and breathing treatments Follow clinical course closely Cardio services following Reviewed cardiac cath and angiogram findings Continue the Heather Abdi as needed Sleep study on outpatient basis Time with Patient: Greater than 30
[2019-07-04 11:53] LABS: Glucose,Whole Blood 130 mg/dL (75-99)
--- NOTE | 2019-07-04 12:53 | P.PN ---
Subjective Progress Note Date: 07/04/19 This is a 43-year-old male who presented to the hospital with symptoms of progressive dyspnea, he had evidence of a non-ST elevation myocardial infarction and underwent stenting of the obtuse marginal branch. Patient was seen and examined this morning and is overall doing quite well. Breathing is stable he denies any chest discomfort, no palpitations or nausea. He's been ambulating without any difficulty. Blood pressure 138/90 with a heart rate in the 90s. Patient was noted on the monitor to have several episodes of long pauses, he was sleeping during these episodes and is likely related to sleep apnea however we will discontinue the beta iban at this time. We did have the patient up ambulating in the hallway, his heart rate remained stable in the 80s to 90s. Objective - Vital Signs Vital signs: Vital Signs Temp 97.3 F L 07/04/19 08:00 Pulse 104 H 07/04/19 12:00 Resp 26 H 07/04/19 12:00 BP 138/91 07/04/19 12:00 Pulse Ox 96 07/04/19 12:00 Intake & Output 07/03/19 07/04/19 07/04/19 18:59 06:59 18:59 Intake Total 480 240 Balance 480 240 Intake: Oral 480 240 Other: Voiding Method Toilet # Voids 2 1 - Exam PHYSICAL EXAMINATION: GENERAL: 43-year-old gentleman in no acute distress at the time of my examination HEENT: Head is atraumatic, normocephalic. Pupils equal, round. Sclera anicteric. Conjunctiva are clear. Mucous membranes of the mouth are moist. Neck is supple. There is no elevated jugular venous pressure. No carotid bruit is heard. HEART EXAMINATION: Heart S1, S2 normal. No murmur or gallop heard. CHEST EXAMINATION: Lungs are clear to auscultation and precussion. No chest wall tenderness is noted on palpation or with deep breathing. ABDOMEN: Soft, nontender. Bowel sounds are heard. No organomegaly noted. EXTREMITIES: 2+ peripheral pulses with no evidence of peripheral edema and no calf tenderness noted. NEUROLOGIC patient is awake, alert and oriented 3 . - Labs CBC & Chem 7: 07/03/19 06:05 07/03/19 06:05 Labs: Abnormal Lab Results - Last 24 Hours (Table) 07/03/19 07/04/19 07/04/19 Range/Units 20:42 07:15 11:51 POC Glucose (mg/dL) 107 H 112 H 130 H (75-99) mg/dL Microbiology - Last 24 Hours (Table) 06/28/19 08:42 Blood Culture - Final Blood No Growth after 144 hours Assessment and Plan Plan: Assessment and plan #1 status post stenting of the left circumflex in the setting of a non-STEMI #2 obesity #3 hyperlipidemia #4 hypertension #5.is noted on the monitor, it is possible that the patient may have sleep apnea Plan We will discontinue the patient's beta iban until he is further evaluated by Dr. Lazaro Clark in the office. He may be able to be discharged home from our perspective, we will make him a follow-up appointment in the office. DNP note has been reviewed, I agree with a documented findings and plan of care. Patient was seen and examined.
[2019-07-04 16:38] VITALS: BP 115/74; PULSE 108
--- NOTE | 2019-07-04 16:52 | P.DS ---
Providers Date of admission: 06/28/19 11:32 Expected date of discharge: 07/04/19 Attending physician: Don Peralta Consults: 06/28/19 11:32 Consult Physician Routine Consulting Provider: Jim Baum Consult Reason/Comments: Elevated troponin Do you want consulting provider notified?: Yes 06/28/19 14:24 Consult Physician Routine Consulting Provider: Keenan Campos Consult Reason/Comments: cap Do you want consulting provider notified?: Yes 06/28/19 14:30 Consult Physician Routine Consulting Provider: Denise Guo Consult Reason/Comments: cap r/o covid Do you want consulting provider notified?: Yes 07/02/19 10:51 Consult Physician Routine Consulting Provider: [facility] Consult Reason/Comments: Post Interventional patient Do you want consulting provider notified?: Already Contacted Primary care physician: Stated None Hospital Course: Final Diagnoses: Acute chest pain, acute NSTEMI, status post cardiac cath with PTCA, stenting 2 of OM branch of circumflex Sinus arrhythmia, multiple pauses. Beta iban discontinued as per cardiology with further reevaluation outpatient with cardiology Acute COPD exacerbation with tracheobronchitis Hypertension Hyperlipidemia Anxiety Nicotine dependence Marijuana use Morbid obesity, BMI 31.5 Possible obstructive sleep apnea Hospital course:THis is a 43-year-old gentleman status post left heart cath with PTCA, stenting of OM of circumflex. Tolerated procedure well. Complains of sleep deprivation. Denies cough, breathing improving. Telemetry sinus rhythm. Denies chest pain, palpitations or shortness of breath. Denies lightheadedness, dizziness or focal deficits. Telemetry reporting multiple variable pauses ranging from 3 seconds up to 7 seconds, occured mostly with sleeping. Beta iban discontinued per cardiology with further reevaluation outpatient. Significant clinical improvement. Cleared by all consults for discharge. Patient is being discharged home in a stable condition with guarded prognosis. The impression and plan of care has been dictated as directed. : I performed a history and examination of this patient, discussed the same with the dictator. I agree with the dictator's note ,documented as a scribe. Any additional findings or plans will be noted. Patient Condition at Discharge: Stable Plan - Discharge Summary Discharge Rx Participant: Yes New Discharge Prescriptions: New Aspirin 81 mg PO DAILY #30 chew Ticagrelor [Brilinta] 90 mg PO BID #60 tab Nicotine 14Mg/24Hr Patch [Habitrol] 1 patch TRANSDERM DAILY #30 patch Atorvastatin [Lipitor] 80 mg PO DAILY #30 tab Nitroglycerin Sl Tabs [Nitrostat] 0.4 mg SUBLINGUAL Q5M PRN #25 tab PRN Reason: Chest Pain amLODIPine [Norvasc] 10 mg PO DAILY #30 tab hydrALAZINE HCL [Apresoline] 100 mg PO BID #30 tab Azithromycin [Zithromax] 500 mg PO DAILY #4 tab predniSONE 10 mg PO DIRECTED #30 tab Albuterol Inhaler [Ventolin Hfa Inhaler] 2 puff INHALATION RT-QID #1 inh Continue Multivit-Mins/Iron/Folic/Lycop [Centrum Men's Tablet] 1 tab PO DAILY Changed Acetaminophen Tab [Tylenol] 500 mg PO Q6HR PRN #0 PRN Reason: Pain Discharge Medication List Multivit-Mins/Iron/Folic/Lycop [Centrum Men's Tablet] 1 tab PO DAILY 06/28/19 [History] Aspirin 81 mg PO DAILY #30 chew 07/03/19 [Rx] Atorvastatin [Lipitor] 80 mg PO DAILY #30 tab 07/03/19 [Rx] Nicotine 14Mg/24Hr Patch [Habitrol] 1 patch TRANSDERM DAILY #30 patch 07/03/19 [Rx] Nitroglycerin Sl Tabs [Nitrostat] 0.4 mg SUBLINGUAL Q5M PRN #25 tab 07/03/19 [Rx] Ticagrelor [Brilinta] 90 mg PO BID #60 tab 07/03/19 [Rx] amLODIPine [Norvasc] 10 mg PO DAILY #30 tab 07/03/19 [Rx] hydrALAZINE HCL [Apresoline] 100 mg PO BID #30 tab 07/03/19 [Rx] Acetaminophen Tab [Tylenol] 500 mg PO Q6HR PRN #0 07/04/19 [Rx] Albuterol Inhaler [Ventolin Hfa Inhaler] 2 puff INHALATION RT-QID #1 inh 07/04/19 [Rx] Azithromycin [Zithromax] 500 mg PO DAILY #4 tab 07/04/19 [Rx] predniSONE 10 mg PO DIRECTED #30 tab 07/04/19 [Rx] Follow up Appointment(s)/Referral(s): Ravindra Clark MD [STAFF PHYSICIAN] - 1 Week Don Peralta MD [STAFF PHYSICIAN] - 1 Week Ambulatory/Diagnostic Orders: Complete Blood Count w/diff [LAB.AMB] Time Frame: 3 Days, Location: None Selected Patient Instructions/Handouts: How to Stop Smoking (DC) Activity/Diet/Wound Care/Special Instructions: Beta iban discontinued as per cardiology secondary to multiple pauses, acute due to possible sleep apnea ; reevaluate outpatient with cardiology .Brilinta not covered by insurance, patient will be given free 30day supply and will need to follow up with program project manager after discharge.
[2019-07-04 16:55] LABS: Glucose,Whole Blood 136 mg/dL (75-99)
--- NOTE | 2019-07-06 09:11 | CDI ---
Documentation Clarification Form Date: 07/06/19 From: Gala Torre CCS Phone: If you have a question about this query, please contact Malathi Alonzo, Casing Puller at [phone] between 8am and 5pm. Admit Date: 06/28/19 Discharge Date:07/04/19 Patient Name: Issa Yuan Visit Number: [id number] ATTENTION: The Clinical Documentation Specialists (CDI) and [facility] Coding Staff appreciate your assistance in clarifying documentation. Please respond to the clarification below the line at the bottom and electronically sign. The CDI & [facility] Coding staff will review the response and follow-up if needed. Please note: Queries are made part of the Legal Health Record. If you have any questions, please contact the author of this message via ITS. Dear Dr. Peralta, The diagnosis pneumonia was documented in the H&P, PNs, Consult , but is not noted in subsequent documentation. History/Risk Factors: Non-STEMI, COPD w/ Exac, Morbid Obesity, HTN, Tobacco, CAD Clinical Indicators: Increasing shortness of breath, fever, cough Chest X-Ray: Left perihilar and basilar interstitial infiltrate.Mild increased density right medial lung base.Suspected COVID-19 pneumonia Treatment: Rocephin 1 gm IVPB Q 24HR, Zithromax 500 mg IVPB Once, Rocephin 1,000 mg IVP Once STA Please clarify if the pneumonia was Present/active this admission Treated and resolved this admission Ruled out Other, please specify Clinically unable to determine MTDD
--- NOTE | 2019-07-10 12:38 | CDI ---
Documentation Clarification Form Date: 07/10/19 From: Gala Torre CCS Phone: If you have a question about this query, please contact Malathi Alonzo, Home Child Care Provider at [phone] between 8am and 5pm. Admit Date: 06/28/19 Discharge Date:07/04/19 Patient Name: Issa Yuan Visit Number: [id number] ATTENTION: The Clinical Documentation Specialists (CDI) and [facility] Coding Staff appreciate your assistance in clarifying documentation. Please respond to the clarification below the line at the bottom and electronically sign. The CDI & [facility] Coding staff will review the response and follow-up if needed. Please note: Queries are made part of the Legal Health Record. If you have any questions, please contact the author of this message via ITS. Dear Dr. Peralta, The diagnosis pneumonia was documented in the H&P, PNs, Consult , but is not noted in subsequent documentation. History/Risk Factors: Non-STEMI, COPD w/ Exac, Morbid Obesity, HTN, Tobacco, CAD Clinical Indicators: Increasing shortness of breath, fever, cough Chest X-Ray: Left perihilar and basilar interstitial infiltrate.Mild increased density right medial lung base.Suspected COVID-19 pneumonia Treatment: Rocephin 1 gm IVPB Q 24HR, Zithromax 500 mg IVPB Once, Rocephin 1,000 mg IVP Once STA Please clarify if the pneumonia was Present/active this admission Treated and resolved this admission Ruled out Other, please specify Clinically unable to determine MTDD
--- NOTE | 2019-07-13 19:00 | DS ---
DISCHARGE SUMMARY ADDENDUM: Pneumonia was treated and resolved during this admission. MMODL / IJN: [id number] /
== END 2019-07-04 17:00 | disposition home or self-care (01) | DRG 246 ==
LOC: EC 08:01 → 3SCARD 11:32
PROVIDERS: ADMIT Family Medicine; ATTEND Family Medicine
PROC: 4A023N7 Measurement of Cardiac Sampling and Pressure, Left Heart, Percutaneous Approach (ICD-10-PCS; principal; 2019-07-02 10:05)
PROC: B2111ZZ Fluoroscopy of Multiple Coronary Arteries using Low Osmolar Contrast (ICD-10-PCS; principal; 2019-07-02 10:05)
PROC: 027035Z Dilation of Coronary Artery, One Artery with Two Drug-eluting Intraluminal Devices, Percutaneous Approach (ICD-10-PCS; principal; 2019-07-02 10:05)
DX: I21.4 Non-ST elevation (NSTEMI) myocardial infarction (principal); J18.9 Pneumonia, unspecified organism; E87.1 Hypo-osmolality and hyponatremia; J44.1 Chronic obstructive pulmonary disease with (acute) exacerbation; J44.0 Chronic obstructive pulmonary disease with (acute) lower respiratory infection; Z20.828 Contact with and (suspected) exposure to other viral communicable diseases; E66.01 Morbid (severe) obesity due to excess calories; I10 Essential (primary) hypertension; J20.9 Acute bronchitis, unspecified; F17.200 Nicotine dependence, unspecified, uncomplicated; E83.42 Hypomagnesemia; F41.9 Anxiety disorder, unspecified; G47.33 Obstructive sleep apnea (adult) (pediatric); R00.0 Tachycardia, unspecified; I25.10 Atherosclerotic heart disease of native coronary artery without angina pectoris; E78.5 Hyperlipidemia, unspecified; Z71.3 Dietary counseling and surveillance; Z71.6 Tobacco abuse counseling; Z68.31 Body mass index [BMI] 31.0-31.9, adult; Z79.899 Other long term (current) drug therapy; Z97.0 Presence of artificial eye; Z86.14 Personal history of Methicillin resistant Staphylococcus aureus infection; Z98.890 Other specified postprocedural states; Z87.828 Personal history of other (healed) physical injury and trauma; Z72.820 Sleep deprivation; Z88.8 Allergy status to other drugs, medicaments and biological substances; Z83.3 Family history of diabetes mellitus; Z82.0 Family history of epilepsy and other diseases of the nervous system
CPT/HCPCS: 36415; 71045; 71046; 71275; 80048; 80053; 80061; 82550; 82728; 83036; 83605; 83615; 83735; 83880; 84145; 84443; 84484; 85025; 85379; 85610; 85730; 86140; 87040; 87070; 87205; 87502; 87635; 93005; 93306; 93458; 94640; 94760; 96365; 96366; 96367; 96368; 96375; 99285

== ENCOUNTER 2019-07-16 22:16 | Emergency (ER) | payer OTHER ==
[2019-07-16] MEDS ORDERED: ACETAMINOPHEN TAB 500 MG TAB PO STA (23:20)
[2019-07-16] MEDS ORDERED: SODIUM CHLORIDE 0.9% 500 ML 500 ML IV ONE (23:20)
[2019-07-16 23:38] LABS: Basophils % (A) 0 %; Eosinophils # (A) 0.1 k/uL (0-0.7); Eosinophils % (A) 1 %; HCT 43.9 % (39.0-53.0); HGB 14.8 gm/dL (13.0-17.5); Lymphocytes # (A) 0.4 k/uL (1.0-4.8); Lymphocytes % (A) 3 %; MCH 34.6 pg (25.0-35.0); MCHC 33.7 g/dL (31.0-37.0); MCV 102.7 fL (80.0-100.0); Macrocytosis Slight; Mean Platelet Volume 7.9; Monocytes # (A) 0.3 k/uL (0-1.0); Monocytes % (A) 3 %; Neutrophils # (A) 10.4 k/uL (1.3-7.7); Neutrophils % (A) 92 %; Platelet Count 195 k/uL (150-450); RBC 4.28 m/uL (4.30-5.90); RDW 13.2 % (11.5-15.5); WBC 11.3 k/uL (3.8-10.6)
[2019-07-16 23:45] LABS: Potassium 3.8 mmol/L (3.5-5.1)
--- NOTE | 2019-07-16 23:45 | XR ---
EXAMINATION TYPE: XR chest 1V portable DATE OF EXAM: 07/16/2019 COMPARISON: Chest x-ray July 01, 2019. CTA chest June 28, 2019. HISTORY: Shortness of breath and fever. Suspected Covid-19 pneumonia. TECHNIQUE: Single AP portable frontal upright view of the chest is obtained. FINDINGS: Overlying EKG leads are seen. There is no new suspicious focal air space opacity, pleural effusion, or pneumothorax seen. The cardiac silhouette size is remains upper limits of normal. The osseous structures are intact. IMPRESSION: No new suspicious acute infiltrate seen.
[2019-07-16 23:46] LABS: ALT 94 U/L (4-49); AST 56 U/L (17-59); African American GFR (CKD) >90 (>60 ml/min/1.73 sqM); Albumin 4.3 g/dL (3.5-5.0); Alkaline Phosphatase 97 U/L (38-126); Anion Gap 10 mmol/L; Blood Urea Nitrogen 16 mg/dL (9-20); Calcium 9.5 mg/dL (8.4-10.2); Carbon Dioxide 26 mmol/L (22-30); Chloride 100 mmol/L (98-107); Glucose 109 mg/dL (74-99); Magnesium 1.9 mg/dL (1.6-2.3); Non-African American GFR(CKD) >90 (>60 ml/min/1.73 sqM); Sodium 136 mmol/L (137-145); Total Bilirubin 0.9 mg/dL (0.2-1.3); Total Protein 7.3 g/dL (6.3-8.2)
[2019-07-16 23:51] LABS: INR 0.9 (<1.2); Prothrombin Time 9.6 sec (9.0-12.0)
--- NOTE | 2019-07-17 00:06 | ED ---
Recheck HPI - General Chief Complaint: Recheck/Abnormal Lab/Rx Stated Complaint: Revisit Diff Breathing Time Seen by Provider: 07/16/19 22:46 Source: patient Mode of arrival: ambulatory Limitations: no limitations - History of Present Illness Initial Comments: 43-year-old male patient presents to the emergency department today for evaluation of fever, chills, and elevated heart rate. The patient states that for the last 3 days he has noticed fevers and shaking. States his heart rate has been elevated for the last 4-5 days. Patient has also been having diarrhea up to 9 stools per day for the last 5 days. Denies any hematochezia or melena with this. Denies nausea or vomiting. Patient was recently admitted to the hospital for myocardial infarction and had 2 stents placed. He was hospitalized for a total of 7 days. He is currently taking a azithromycin, he is unsure what this is for. He denies any cough or congestion. Denies shortness of breath or chest pain. Denies any sore throat or ear pain. Patient denies any recent rash, back pain, numbness, tingling, dizziness, weakness, hematuria, dysuria, urinary urgency, urinary frequency, headache, visual changes, or any other complaints. - Related Data Home Medications Medication Instructions Recorded Confirmed Multivit-Mins/Iron/Folic/Lycop 1 tab PO DAILY 06/28/19 06/28/19 [Centrum Men's Tablet] Previous Rx's Medication Instructions Recorded Aspirin 81 mg PO DAILY #30 chew 07/03/19 Atorvastatin [Lipitor] 80 mg PO DAILY #30 tab 07/03/19 Nicotine 14Mg/24Hr Patch [Habitrol] 1 patch TRANSDERM DAILY #30 patch 07/03/19 Nitroglycerin Sl Tabs [Nitrostat] 0.4 mg SUBLINGUAL Q5M PRN #25 tab 07/03/19 Ticagrelor [Brilinta] 90 mg PO BID #60 tab 07/03/19 amLODIPine [Norvasc] 10 mg PO DAILY #30 tab 07/03/19 hydrALAZINE HCL [Apresoline] 100 mg PO BID #30 tab 07/03/19 Acetaminophen Tab [Tylenol] 500 mg PO Q6HR PRN #0 07/04/19 Albuterol Inhaler [Ventolin Hfa 2 puff INHALATION RT-QID #1 inh 07/04/19 Inhaler] Azithromycin [Zithromax] 500 mg PO DAILY #4 tab 07/04/19 predniSONE 10 mg PO DIRECTED #30 tab 07/04/19 Allergies Allergy/AdvReac Type Severity Reaction Status Date / Time gabapentin [From Neurontin] Allergy Unknown Verified 06/28/19 11:34 Review of Systems ROS Statement: Those systems with pertinent positive or pertinent negative responses have been documented in the HPI. ROS Other: All systems not noted in ROS Statement are negative. Past Medical History Past Medical History: Hypertension, Myocardial Infarction ([place]) Additional Past Medical History / Comment(s): staph-leg wound, prosthetic right eye, head injury 10 years ago, 2 cardiac stents History of Any Multi-Drug Resistant Organisms: MRSA Date of last positivie culture/infection: may 2019 MDRO Source:: leg wound Past Surgical History: Heart Catheterization With Stent Additional Past Surgical History / Comment(s): prostethic eye, head (8 or 9 surgeries post accident)-10 years ago Past Psychological History: Anxiety Smoking Status: Former smoker Past Alcohol Use History: Occasional Past Drug Use History: Marijuana - Past Family History Mother Family Medical History: Diabetes Mellitus, Seizure Disorder General Exam Limitations: no limitations General appearance: alert, in no apparent distress, other (This is a well- developed, well-nourished adult male patient in no acute distress. Vital signs upon presentation are temperature 102.9F, pulse 115, respirations 20, blood pressure 130/78, pulse ox 99% on room air) Eye exam: Present: normal appearance, PERRL, EOMI. Absent: scleral icterus, conjunctival injection, periorbital swelling ENT exam: Present: normal exam, normal oropharynx, mucous membranes moist Respiratory exam: Present: normal lung sounds bilaterally. Absent: respiratory distress, wheezes, rales, rhonchi, stridor Cardiovascular Exam: Present: normal rhythm, tachycardia, normal heart sounds. Absent: systolic murmur, diastolic murmur, rubs, gallop, clicks GI/Abdominal exam: Present: soft, normal bowel sounds. Absent: distended, tenderness, guarding, rebound, rigid Neurological exam: Present: alert, oriented X3, CN II-XII intact Psychiatric exam: Present: normal affect, normal mood Skin exam: Present: warm, dry, intact, normal color. Absent: rash Course Vital Signs 07/16/19 07/16/19 07/16/19 22:26 23:18 23:50 Temperature 100.0 F H 102.9 F H Pulse Rate 115 H 109 H Respiratory 20 17 Rate Blood Pressure 130/78 169/78 O2 Sat by Pulse 99 98 Oximetry 07/17/19 07/17/19 07/17/19 00:12 00:30 01:00 Temperature 102.6 F H 102.4 F H Pulse Rate 113 H 108 H Respiratory 13 18 Rate Blood Pressure 156/77 122/63 O2 Sat by Pulse 97 97 Oximetry Medical Decision Making - Medical Decision Making 43-year-old male patient presents to the emergency department today for evaluation of fever and diarrhea. Physical examination reveals clear equal lung sounds. Vital signs show elevated temperature at 102.6F. Heart rate elevated between 110 and 115 most likely due to elevation in temperature. Patient was given Tylenol and Motrin. Chest x-ray showed no acute cardiopulmonary process. Labs reviewed and reveal mildly elevated white blood cell count 11.6. Patient recently was on steroids. Is currently taking azithromycin. Urinalysis shows no signs of infection. Coronavirus testing was negative. C. difficile testing was negative. I did discuss findings and results with the patient. He'll be discharged home to continue monitoring and taking Tylenol for his temperature. He is instructed follow up with his primary care physician for recheck tomorrow. We did discuss that his fever and diarrhea could be related to COVID-19 and we did discuss self isolation. Return parameters were discussed in detail. He verbalizes understanding and agrees with this plan. - Lab Data Result diagrams: 07/16/19 23:00 07/16/19 23:00 Lab Results 07/16/19 07/16/19 07/16/19 Range/Units 23:00 23:00 23:00 WBC 11.3 H (3.8-10.6) k/uL RBC 4.28 L (4.30-5.90) m/uL Hgb 14.8 (13.0-17.5) gm/dL Hct 43.9 (39.0-53.0) % MCV 102.7 H (80.0-100.0) fL MCH 34.6 (25.0-35.0) pg MCHC 33.7 (31.0-37.0) g/dL RDW 13.2 (11.5-15.5) % Plt Count 195 (150-450) k/uL Neutrophils % 92 % Lymphocytes % 3 % Monocytes % 3 % Eosinophils % 1 % Basophils % 0 % Neutrophils # 10.4 H (1.3-7.7) k/uL Lymphocytes # 0.4 L (1.0-4.8) k/uL Monocytes # 0.3 (0-1.0) k/uL Eosinophils # 0.1 (0-0.7) k/uL Basophils # 0.0 (0-0.2) k/uL Macrocytosis Slight PT 9.6 (9.0-12.0) sec INR 0.9 (<1.2) APTT 23.0 (22.0-30.0) sec Sodium 136 L (137-145) mmol/L Potassium 3.8 (3.5-5.1) mmol/L Chloride 100 (98-107) mmol/L Carbon Dioxide 26 (22-30) mmol/L Anion Gap 10 mmol/L BUN 16 (9-20) mg/dL Creatinine 0.90 (0.66-1.25) mg/dL Est GFR (CKD-EPI)AfAm >90 (>60 ml/min/1.73 sqM) Est GFR (CKD-EPI)NonAf >90 (>60 ml/min/1.73 sqM) Glucose 109 H (74-99) mg/dL Plasma Lactic Acid [place] (0.7-2.0) mmol/L Calcium 9.5 (8.4-10.2) mg/dL Magnesium 1.9 (1.6-2.3) mg/dL Total Bilirubin 0.9 (0.2-1.3) mg/dL AST 56 (17-59) U/L ALT 94 H (4-49) U/L Alkaline Phosphatase 97 (38-126) U/L Total Protein 7.3 (6.3-8.2) g/dL Albumin 4.3 (3.5-5.0) g/dL Urine Color Urine Appearance (Clear) Urine pH (5.0-8.0) Ur Specific [place] (1.001-1.035) Urine Protein (Negative) Urine Glucose (UA) (Negative) Urine Ketones (Negative) Urine Blood (Negative) Urine Nitrite (Negative) Urine Bilirubin (Negative) Urine Urobilinogen (<2.0) mg/dL Ur Leukocyte Esterase (Negative) C. difficile (EIA) Intrp (Negative) Coronavirus (PCR) (Not Detectd) 07/16/19 07/16/19 07/17/19 Range/Units 23:00 23:00 00:57 WBC (3.8-10.6) k/uL RBC (4.30-5.90) m/uL Hgb (13.0-17.5) gm/dL Hct (39.0-53.0) % MCV (80.0-100.0) fL MCH (25.0-35.0) pg MCHC (31.0-37.0) g/dL RDW (11.5-15.5) % Plt Count (150-450) k/uL Neutrophils % % Lymphocytes % % Monocytes % % Eosinophils % % Basophils % % Neutrophils # (1.3-7.7) k/uL Lymphocytes # (1.0-4.8) k/uL Monocytes # (0-1.0) k/uL Eosinophils # (0-0.7) k/uL Basophils # (0-0.2) k/uL Macrocytosis PT (9.0-12.0) sec INR (<1.2) APTT (22.0-30.0) sec Sodium (137-145) mmol/L Potassium (3.5-5.1) mmol/L Chloride (98-107) mmol/L Carbon Dioxide (22-30) mmol/L Anion Gap mmol/L BUN (9-20) mg/dL Creatinine (0.66-1.25) mg/dL Est GFR (CKD-EPI)AfAm (>60 ml/min/1.73 sqM) Est GFR (CKD-EPI)NonAf (>60 ml/min/1.73 sqM) Glucose (74-99) mg/dL Plasma Lactic Acid [place] 1.5 (0.7-2.0) mmol/L Calcium (8.4-10.2) mg/dL Magnesium (1.6-2.3) mg/dL Total Bilirubin (0.2-1.3) mg/dL AST (17-59) U/L ALT (4-49) U/L Alkaline Phosphatase (38-126) U/L Total Protein (6.3-8.2) g/dL Albumin (3.5-5.0) g/dL Urine Color Urine Appearance (Clear) Urine pH (5.0-8.0) Ur Specific [place] (1.001-1.035) Urine Protein (Negative) Urine Glucose (UA) (Negative) Urine Ketones (Negative) Urine Blood (Negative) Urine Nitrite (Negative) Urine Bilirubin (Negative) Urine Urobilinogen (<2.0) mg/dL Ur Leukocyte Esterase (Negative) C. difficile (EIA) Intrp Negative (Negative) Coronavirus (PCR) Not Detected (Not Detectd) 07/17/19 Range/Units Unknown WBC (3.8-10.6) k/uL RBC (4.30-5.90) m/uL Hgb (13.0-17.5) gm/dL Hct (39.0-53.0) % MCV (80.0-100.0) fL MCH (25.0-35.0) pg MCHC (31.0-37.0) g/dL RDW (11.5-15.5) % Plt Count (150-450) k/uL Neutrophils % % Lymphocytes % % Monocytes % % Eosinophils % % Basophils % % Neutrophils # (1.3-7.7) k/uL Lymphocytes # (1.0-4.8) k/uL Monocytes # (0-1.0) k/uL Eosinophils # (0-0.7) k/uL Basophils # (0-0.2) k/uL Macrocytosis PT (9.0-12.0) sec INR (<1.2) APTT (22.0-30.0) sec Sodium (137-145) mmol/L Potassium (3.5-5.1) mmol/L Chloride (98-107) mmol/L Carbon Dioxide (22-30) mmol/L Anion Gap mmol/L BUN (9-20) mg/dL Creatinine (0.66-1.25) mg/dL Est GFR (CKD-EPI)AfAm (>60 ml/min/1.73 sqM) Est GFR (CKD-EPI)NonAf (>60 ml/min/1.73 sqM) Glucose (74-99) mg/dL Plasma Lactic Acid [place] (0.7-2.0) mmol/L Calcium (8.4-10.2) mg/dL Magnesium (1.6-2.3) mg/dL Total Bilirubin (0.2-1.3) mg/dL AST (17-59) U/L ALT (4-49) U/L Alkaline Phosphatase (38-126) U/L Total Protein (6.3-8.2) g/dL Albumin (3.5-5.0) g/dL Urine Color Yellow Urine Appearance Clear (Clear) Urine pH 5.5 (5.0-8.0) Ur Specific [place] 1.023 (1.001-1.035) Urine Protein Trace H (Negative) Urine Glucose (UA) Negative (Negative) Urine Ketones Negative (Negative) Urine Blood Negative (Negative) Urine Nitrite Negative (Negative) Urine Bilirubin Negative (Negative) Urine Urobilinogen <2.0 (<2.0) mg/dL Ur Leukocyte Esterase Negative (Negative) C. difficile (EIA) Intrp (Negative) Coronavirus (PCR) (Not Detectd) - EKG Data -: EKG Interpreted by Mo EKG Comments: EKG obtained at 2256 shows sinus tachycardia with ventricular rate of 111, ND interval 150, QRS duration 60, QT 288, QTC 391. No evidence of ST elevation or depression. - Radiology Data Radiology results: report reviewed, image reviewed One view x-ray of the chest is obtained. Report was reviewed in its entirety. Impression by Dr. Lofton shows no suspicious acute infiltrate. Disposition Clinical Impression: Fever Disposition: HOME SELF-CARE Condition: Good Instructions (If sedation given, give patient instructions): Fever in Adults (ED) Additional Instructions: Increase fluids. Take tylenol for fever control. Follow up with your primary care physician tomorrow. There is a possibility that your fever could be the result of COVID-19, you should self isolate to avoid infecting others. Return to the emergency department if you develop any new or worsening symptoms. Is patient prescribed a controlled substance at d/c from ED?: No Referrals: None,Stated [Primary Care Provider] - 1-2 days Time of Disposition: 01:50
[2019-07-17 00:29] LABS: Appearance,Urine Clear (Clear); Bilirubin,Urine Negative (Negative); Blood,Urine Negative (Negative); Color,Urine Yellow; Glucose,Urine (UA) Negative (Negative); Ketones,Urine Negative (Negative); Leukocyte Esterase,Urine Negative (Negative); Nitrite,Urine Negative (Negative); PH, Urine 5.5 (5.0-8.0); Protein,Urine Trace (Negative); Specific Gravity,Urine 1.023 (1.001-1.035); Urobilinogen,Urine <2.0 mg/dL (<2.0)
[2019-07-17] MEDS ORDERED: IBUPROFEN 600 MG TAB PO STA (01:21)
[2019-07-17 02:04] VITALS: TEMP 100.2
[2019-07-17 02:11] VITALS: BP 146/79; PULSE 104; RESP 14
== END 2019-07-17 02:18 | disposition home or self-care (01) ==
LOC: EC 22:16
DX: Z03.818 Encounter for observation for suspected exposure to other biological agents ruled out (principal); R50.9 Fever, unspecified; R19.7 Diarrhea, unspecified; R00.0 Tachycardia, unspecified; D72.829 Elevated white blood cell count, unspecified; I25.2 Old myocardial infarction; Z79.52 Long term (current) use of systemic steroids; Z87.891 Personal history of nicotine dependence; Z88.8 Allergy status to other drugs, medicaments and biological substances; Z95.5 Presence of coronary angioplasty implant and graft; Z86.14 Personal history of Methicillin resistant Staphylococcus aureus infection
CPT/HCPCS: 36415; 71045; 80053; 81003; 83605; 83735; 85025; 85610; 85730; 87040; 87324; 87635; 93005; 96360; 96361; 99285

== ENCOUNTER → 2019-08-22 | Outpatient (CLI) | payer OTHER ==
[2019-08-22 18:53] LABS: Anion Gap 11.8 mmol/L (4.00-12.00); BUN/Creat Ratio 18.46 Ratio (12.00-20.00); Calcium 10.1 mg/dL (8.7-10.3); Carbon Dioxide 33.2 mmol/L (21.6-31.8); Magnesium 1.8 mg/dL (1.5-2.4); Non-African American GFR(CKD) 67.3 (60.0-200.0); Potassium 3.8 mmol/L (3.5-5.5)
== END | disposition home or self-care (01) ==
LOC: LABWHC1 10:35
PROVIDERS: ATTEND Internal Medicine Clinical Cardiac Electrophysiology
DX: I25.10 Atherosclerotic heart disease of native coronary artery without angina pectoris (principal); R60.1 Generalized edema
CPT/HCPCS: 36415; 80048; 83735

== ENCOUNTER 2023-04-25 20:03 | Inpatient (IN) | payer OTHER ==
--- NOTE | 2023-04-25 20:14 | ED ---
Chest Pain HPI - General Source: patient Mode of arrival: ambulatory Limitations: no limitations <Gilbert Mcgovern - Last Filed: 04/25/23 20:14> - History of Present Illness MD Complaint: chest pain Onset/Timin -: days(s) Onset: other (With cough) Pain Location: left chest Pain Radiation: none Severity: moderate Quality: aching Consistency: constant Improves With: nothing Worsens With: nothing Anginal Symptoms: nausea, vomiting Other Symptoms: cough, fever Treatments Prior to Arrival: none <Humberto Christopher - Last Filed: 05/03/23 02:44> - General Chief Complaint: Chest Pain Stated Complaint: Chest Pain,Left arm pain Time Seen by Provider: 04/25/23 20:13 - History of Present Illness Initial Comments: 47-year-old male with a past medical history significant for coronary artery disease status post stenting presenting to the ED with a chief complaint of chest pain. Patient notes 2 days ago onset of URI symptoms and chest pain. Patient states pain is on the left side of his chest. States pain is intermittent lasting a few minutes. Also notes some fatigue, nausea, vomiting, diarrhea. (Gilbert Mcgovern) This patient is a 47-year-old man who presents with a constellation of symptoms starting Tuesday night. He notes that he was having cough and congestion, he seemed to have some aching in his left chest. He subsequently had onset of vomiting, diarrhea, generalized weakness and fatigue. Patient states that prior to the onset of this he has been having some problems with his lymphedema and cellulitis. The patient states that he resides in [place] and his physician had started him on antibiotics for the cellulitis but he had left his compression stockings and his antibiotics in [place] and has been without them for some time now. (Humberto Christopher) - Related Data Previous Rx's Medication Instructions Recorded Acetaminophen Tab [Tylenol] 500 mg PO Q6HR PRN tab 04/27/23 Aspirin 81 mg PO DAILY #30 tab 04/27/23 Atorvastatin [Lipitor] 80 mg PO DAILY #30 tab 04/27/23 Cephalexin [Keflex] 500 mg PO Q8HR 7 Days #21 cap 04/27/23 Magnesium Oxide [Mag-Ox] 400 mg PO BID #60 tab 04/27/23 Metoprolol Tartrate [Lopressor] 25 mg PO BID #60 tab 04/27/23 Nicotine 21Mg/24Hr Patch [Habitrol] 1 patch TRANSDERM DAILY #30 patch 04/27/23 Nitroglycerin Sl Tabs [Nitrostat] 0.4 mg SUBLINGUAL Q5M PRN #20 tab 04/27/23 amLODIPine [Norvasc] 10 mg PO DAILY #30 tab 04/27/23 lisinopriL [Zestril] 10 mg PO DAILY #30 tab 04/27/23 Allergies Allergy/AdvReac Type Severity Reaction Status Date / Time gabapentin [From Neurontin] Allergy Unknown Verified 04/26/23 06:56 Review of Systems ROS Other: All systems not noted in ROS Statement are negative. <Gilbert Mcgovern - Last Filed: 04/25/23 20:14> ROS Other: All systems not noted in ROS Statement are negative. Constitutional: Reports: fever, chills, weakness Eyes: Denies: eye discharge ENT: Reports: congestion Respiratory: Reports: cough. Denies: dyspnea, wheezes, hemoptysis Cardiovascular: Reports: chest pain, edema (Chronic). Denies: palpitations, orthopnea, syncope Gastrointestinal: Denies: abdominal pain, nausea, vomiting Genitourinary: Denies: dysuria, hematuria Musculoskeletal: Denies: back pain Skin: Denies: rash Neurological: Denies: headache, weakness <Humberto Christopher - Last Filed: 05/03/23 02:44> ROS Statement: Those systems with pertinent positive or pertinent negative responses have been documented in the HPI. EKG Findings - EKG Results: EKG: interpreted by ERMD, sinus rhythm, normal axis, normal QRS, normal ST/T, no acute changes EKG shows: tachycardia (Rate 101 bpm) <Humberto Christopher - Last Filed: 05/03/23 02:44> Past Medical History Past Medical History: Hypertension, Myocardial Infarction ([place]) Additional Past Medical History / Comment(s): staph-leg wound, prosthetic right eye, head injury 10 years ago, 2 cardiac stents History of Any Multi-Drug Resistant Organisms: MRSA Date of last positivie culture/infection: may 2019 MDRO Source:: leg wound Past Surgical History: Heart Catheterization With Stent Additional Past Surgical History / Comment(s): prostethic eye, head (8 or 9 surgeries post accident)-10 years ago Past Psychological History: Anxiety Smoking Status: Current every day smoker, Former smoker, Never smoker Past Alcohol Use History: Occasional Past Drug Use History: Marijuana - Past Family History Mother Family Medical History: Diabetes Mellitus, Seizure Disorder <Gilbert Mcgovern - Last Filed: 04/25/23 20:14> General Exam Limitations: no limitations <Gilbert Mcgovern - Last Filed: 04/25/23 20:14> Limitations: no limitations General appearance: alert, in no apparent distress Head exam: Present: atraumatic, normocephalic Eye exam: Present: normal appearance. Absent: scleral icterus, conjunctival injection Neck exam: Present: normal inspection Respiratory exam: Present: normal lung sounds bilaterally. Absent: respiratory distress, wheezes, rales, rhonchi, stridor, accessory muscle use Cardiovascular Exam: Present: regular rate, normal rhythm, normal heart sounds. Absent: systolic murmur, diastolic murmur, rubs, gallop GI/Abdominal exam: Present: soft. Absent: distended, tenderness, guarding, rebound, rigid, mass Extremities exam: Present: normal capillary refill, pedal edema. Absent: calf tenderness Back exam: Present: normal inspection. Absent: CVA tenderness (R), CVA tenderness (L) Neurological exam: Present: alert Skin exam: Present: warm, dry, intact, other (Patient has chronic stasis changes to the bilateral lower extremities with some clear fluid weeping from the legs). Absent: rash <Humberto Christopher - Last Filed: 05/03/23 02:44> - General Exam Comments Initial Comments: Visual Physical Exam Vital signs reviewed Head: Normocephalic, atraumatic Eyes: PERRLA, EOMI ENT: Airway patent Skin: No visual rash, normal skin tone Neuro: Alert and oriented 3 Musculoskeletal: No gross abnormalities (Court Mcgovernshua) Course Vital Signs 04/25/23 04/26/23 04/26/23 20:06 00:11 01:57 Temperature 97.8 F Pulse Rate 104 H 88 Respiratory 20 18 Rate Blood Pressure 170/113 142/92 O2 Sat by Pulse 97 93 L 96 Oximetry 04/26/23 04/26/23 03:06 05:36 Temperature Pulse Rate 86 73 Respiratory 16 19 Rate Blood Pressure 127/80 125/86 O2 Sat by Pulse 95 94 L Oximetry Chest Pain [facility] <Gilbert Mcgovern - Last Filed: 04/25/23 20:14> <Humberto Christopher - Last Filed: 05/03/23 02:44> - [facility] Quicknote portion performed. Signed Gilbert Mcgovern PA-C (Gilbert Mcgovern) Patient is a 47-year-old man presenting with chest pain. He does have previous CAD and some typical features to the chest pain therefore will admit to have serial cardiac enzymes, telemetry, cardiology consultation. In addition the patient states he does not have his antibiotic coverage for cellulitis and will provide this here. The patient had chest x-ray that I interpreted as negative for acute infiltrate, congestive heart failure, pneumothorax Was pt. sent in by a medical professional or institution ([facility], [employer], urgent care, hospital, or penitentiary...) When possible be specific @ -[No] Did you speak to anyone other than the patient for history (EMS, parent, family, police, friend...)? What history was obtained from this source @ -[No] Did you review nursing and triage notes (agree or disagree)? Why? @ -[I reviewed and agree with nursing and triage notes] Were old charts reviewed (outside hosp., previous admission, EMS record, old EKG, old radiological studies, urgent care reports/EKG's, penitentiary records)? Report findings @ -[No old charts were reviewed] Differential Diagnosis (chest pain, altered mental status, abdominal pain women, abdominal pain men, vaginal bleeding, weakness, fever, dyspnea, syncope, headache, dizziness, GI bleed, back pain, seizure, CVA, palpatations, mental health, musculoskeletal)? @ -[Differential Chest Pain: Stable Angina, Unstable Angina, STEMI, NSTEMI Aortic Dissection, Pneumothorax, Musculoskeletal, Esophageal Spasm GERD, Cholecystitis, Pancreatitis, Zoster, this is not meant to be an all-inclusive list. EKG interpreted by me (3pts min.). @ -[I interpreted as above] X-rays interpreted by me (1pt min.). @ -[I interpreted as above CT interpreted by me (1pt min.). @ -[None done] U/S interpreted by me (1pt. min.). @ -[None done] What testing was considered but not performed or refused? (CT, X-rays, U/S, labs)? Why? @ -[None] What meds were considered but not given or refused? Why? @ -[None] Did you discuss the management of the patient with other professionals (professionals i.e. , PA, [employer], lab, RT, psych nurse, licensed clinical social worker, shirt creaser, teacher, audit officer, casework supervisor)? Give summary @ -[Case discussed with admitting physician and treatment recommendations incorporated Was smoking cessation discussed for >3mins.? @ -[No] Was critical care preformed (if so, how long)? @ -[No] Were there social determinants of health that impacted care today? How? (Homelessness, low income, unemployed, alcoholism, drug addiction, tra nsportation, low edu. Level, literacy, decrease access to med. care, shelter, rehab)? @ -[No] Was there de-escalation of care discussed even if they declined (Discuss DNR or withdrawal of care, Hospice)? DNR status @ -[No] What co-morbidities impacted this encounter? (DM, HTN, Smoking, COPD, CAD, Cancer, CVA, ARF, Chemo, Hep., AIDS, mental health diagnosis, sleep apnea, morbid obesity)? @ -[None] Was patient admitted / discharged? Hospital course, mention meds given and route, prescriptions, significant lab abnormalities, going to OR and other pertinent info. @ -[As above Undiagnosed new problem with uncertain prognosis? @ -[No] Drug Therapy requiring intensive monitoring for toxicity (Heparin, Nitro, Insulin, Cardizem)? @ -[No] Were any procedures done? @ -[No] Diagnosis/symptom? @ -[Acute chest pain Acute on chronic hypomagnesemia Acute on chronic cellulitis, leg Acute, or Chronic, or Acute on Chronic? @ -[default] Uncomplicated (without systemic symptoms) or Complicated (systemic symptoms)? @ -[Uncomplicated Side effects of treatment? @ -[No] Exacerbation, Progression, or Severe Exacerbation? @ -[No] Poses a threat to life or bodily function? How? (Chest pain, [place], [place], pneumonia, PE, COPD, DKA, ARF, appy, cholecystitis, CVA, Diverticulitis, Homicidal, Suicidal, threat to staff... and all critical care pts) @ -[Chest pain does pose possible threat to life until cardiac etiology ruled out (Humberto Christopher) Disposition <Gilbert Mcgovern - Last Filed: 04/25/23 20:14> Is patient prescribed a controlled substance at d/c from ED?: No <Humberto Christopher - Last Filed: 05/03/23 02:44> Clinical Impression: Chest pain, Cellulitis, Hypomagnesemia syndrome Disposition: ADMITTED IP TO THIS HOSP Condition: Fair
--- NOTE | 2023-04-25 20:32 | XR ---
EXAMINATION TYPE: XR chest 2V DATE OF EXAM: 04/25/2023 COMPARISON: 07/01/2019 HISTORY: Chest pain TECHNIQUE: Frontal and lateral views of the chest are obtained. FINDINGS: There is no focal air space opacity, pleural effusion, or pneumothorax seen. The cardiac silhouette size is within normal limits. The osseous structures are intact. IMPRESSION: No acute cardiopulmonary process.
[2023-04-25 20:54] LABS: Basophils # (A) 0.1 k/uL (0-0.2); Basophils % (A) 1 %; Eosinophils # (A) 0.3 k/uL (0-0.7); Eosinophils % (A) 4 %; HCT 43.4 % (39.0-53.0); HGB 14.3 gm/dL (13.0-17.5); Lymphocytes # (A) 1.1 k/uL (1.0-4.8); Lymphocytes % (A) 17 %; MCHC 33.1 g/dL (31.0-37.0); MCV 99.8 fL (80.0-100.0); Macrocytosis Slight; Mean Platelet Volume 8.9; Monocytes # (A) 0.4 k/uL (0-1.0); Monocytes % (A) 6 %; Neutrophils # (A) 4.6 k/uL (1.3-7.7); Neutrophils % (A) 71 %; RBC 4.35 m/uL (4.30-5.90); RDW 14.8 % (11.5-15.5); WBC 6.5 k/uL (3.8-10.6)
[2023-04-25 21:05] LABS: Platelet Count 80 k/uL (150-450)
[2023-04-25 21:08] LABS: ALT 41 U/L (4-49); African American GFR (CKD) 85 (>60 ml/min/1.73 sqM); Albumin 4.6 g/dL (3.5-5.0); Anion Gap 11 mmol/L; Blood Urea Nitrogen 13 mg/dL (9-20); Calcium 9.3 mg/dL (8.4-10.2); Carbon Dioxide 25 mmol/L (22-30); Chloride 100 mmol/L (98-107); Glucose 146 mg/dL (74-99); Non-African American GFR(CKD) 74 (>60 ml/min/1.73 sqM); Sodium 136 mmol/L (137-145); Total Bilirubin 1.6 mg/dL (0.2-1.3); Total Protein 9.3 g/dL (6.3-8.2)
[2023-04-25 21:11] LABS: AST 98 U/L (17-59); Potassium 4.2 mmol/L (3.5-5.1)
[2023-04-25 21:12] LABS: Alkaline Phosphatase 105 U/L (38-126); Magnesium 1.2 mg/dL (1.6-2.3)
[2023-04-25 21:43] LABS: INR 1.1 (<1.2); Prothrombin Time 12.1 sec (10.0-12.5)
[2023-04-25] MEDS ORDERED: NITROGLYCERIN SL TABS 0.4 MG TAB SUBLINGUAL PRN (23:07)
[2023-04-25] MEDS: ONDANSETRON 4 MG/2 ML VIAL IVP STA (23:17)
[2023-04-25] MEDS: hydrALAZINE HCL 20 MG/ML 1 ML VIAL IVP STA (23:17)
[2023-04-25] MEDS: METOPROLOL TARTRATE 25 MG TAB PO STA (23:18)
[2023-04-26] MEDS: SODIUM CHLORIDE 0.9% 1,000 ML IV SCH ×2 (00:06→09:58)
[2023-04-26] MEDS: MORPHINE SULFATE 4 MG/ML SYRINGE IV STA (00:06)
[2023-04-26] MEDS: HEPARIN SODIUM,PORCINE 5,000 UNIT/ML 1 ML VIAL SQ SCH (00:08)
[2023-04-26] MEDS: SULFAMETHOX-TMP 800-160MG 1 EACH TAB PO SCH (00:09)
[2023-04-26] MEDS: NAFCILLIN 2 GM in DEXTROSE 5% IN WATER 100 ML IVPB ONE (00:14)
[2023-04-26] MEDS: ACETAMINOPHEN TAB 500 MG TAB PO PRN (07:06)
[2023-04-26 08:53] LABS: LDL Cholesterol,Calculated 103.2 mg/dL (0.0-131.0)
[2023-04-26] MEDS ORDERED: hydrALAZINE HCL 50 MG TAB PO SCH (09:00)
[2023-04-26] MEDS ORDERED: ASPIRIN 325 MG TAB PO SCH (09:00)
[2023-04-26] MEDS ORDERED: TICAGRELOR 90 MG TAB PO SCH (09:00)
[2023-04-26] MEDS: ALBUTEROL NEBULIZED 2.5 MG/3 ML INHALATION SCH (09:27)
[2023-04-26] MEDS: lisinopriL 10 MG TAB PO SCH (09:57)
[2023-04-26] MEDS: amLODIPine 10 MG TAB PO SCH (09:57)
[2023-04-26] MEDS: MAGNESIUM OXIDE 400 MG TAB PO SCH (09:57)
[2023-04-26] MEDS: ASPIRIN 81 MG PO SCH (09:57)
[2023-04-26] MEDS: ATORVASTATIN 80 MG TAB PO SCH (09:57)
--- NOTE | 2023-04-26 09:57 | P.CRDCN ---
History of Present Illness History of present illness: HISTORY OF PRESENT ILLNESS: This is a 47-year-old male with a past medical history significant for coronary artery disease with previous stenting of the circumflex, hypertension, hyperlip idemia, nicotine dependence, frequent alcohol use, and occasional marijuana use. Patient used to see Dr. Clark but has not been in the office since August 2019. We have been asked to see the patient in consultation for chest pain. Patient examined at the bedside. Patient states he resides in [place] but he has been in the area for the past few weeks visiting family. His car broke down while he was here and he has not been able to get it fixed to return home back to [place]. He states on Tuesday he took his dogs out to use the bathroom and when he came in he felt extremely short of breath. He states that he was diaphoretic. He sat down to rest and began to have chest pain. He states initially he did not think much of it and kind of brushed it off. He states on Tuesday and Tuesday he was sick with GI symptoms including nausea, vomiting, and diarrhea which have since resolved. He reports over the past few days he has continued to have chest pain in the middle of his chest with radiation into his left arm and his left posterior neck. He states that he went to [employer] yesterday and became extremely dizzy and lightheaded so he had to return home along with chest pain. He states his symptoms feel similar to when he required stenting in 2019. He states he has been taking a baby aspirin daily. He reports he has not been taking any of his other medications as he did not bring enough of them from home for his trip. Patient states he is a current smoker. He smokes about 1 pack/day. He reports alcohol use 2-3 times a week. He reports occasional marijuana use and varies from 1-3 times per week. DIAGNOSTICS: - EKG reveals sinus mechanism with no signs of acute ischemia. - Chest xray negative for acute process. - Laboratory data: WBC 6.5. Hemoglobin 14.3. Platelet count 80. Sodium 136. Potassium 4.2. BUN 13. Creatinine 1.18. Magnesium 1.2. Troponin negative x 3. LDL 103.2. - Current home cardiac medications include aspirin 81 mg daily - Most recent echocardiogram obtained in June 2019 revealing ejection fraction 55 to 60% - Cardiac catheterization history: June 2019 revealing normal filling pressures. No gradient across aortic valve. Right dominant system with significant disease in the circumflex marginal of 95%. RCA and LAD are free of significant disease. Left main is free of significant disease. Patient underwent stenting of the circumflex REVIEW OF SYSTEMS: At the time of my exam: CONSTITUTIONAL: Denies fever or chills. HEENT: Denies blurred vision, vision changes, or eye pain. Denies hemoptysis CARDIOVASCULAR: Denies chest pain. Denies orthopnea. Denies PND. Denies palpitations RESPIRATORY: Denies shortness of breath. GASTROINTESTINAL: Denies abdominal pain. Denies nausea or vomiting. HEMATOLOGIC: Denies bleeding disorders. GENITOURINARY: Denies any blood in urine. SKIN: Denies pruitis. Denies rash. PHYSICAL EXAM: VITAL SIGNS: Reviewed. GENERAL: Well-developed in no acute distress. HEENT: Head is normocephalic. Pupils are equal, round. Sclerae anicteric. Mucous membranes of the mouth are moist. Neck supple. No JVD or thyromegaly LUNGS: Respirations even and unlabored. Lungs essentially clear to auscultation bilaterally. HEART: Regular rate and rhythm. S1 and S2 heard. ABDOMEN: Soft. Nondistended. Nontender. EXTREMITIES: Normal range of motion. No clubbing or cyanosis. Peripheral pulses intact. Chronic discoloration with mild edema and multiple scabs noted. NEUROLOGIC: Awake and alert. Oriented x 3. ASSESSMENT: Unstable angina Possible viral gastroenteritis, resolved Coronary artery disease with previous stenting of the circumflex, 2019 Thrombocytopenia Hypomagnesemia Hypertension Hyperlipidemia Diabetes Suspected peripheral vascular disease Morbid obesity Nicotine dependence Frequent alcohol use Frequent marijuana use PLAN: An acute coronary event has been ruled out Continue aspirin and atorvastatin Add metoprolol 25 mg twice a day Add lisinopril 10 mg daily Add Nitropaste Obtain 2D echo to assess cardiac structure and function Recommend abstinence from alcohol, marijuana, and nicotine Recommend cardiac catheterization due to patient's ongoing symptoms. This will be discussed with Dr. Echeverria. Further recommendations pending patient course Nurse practitioner note has been reviewed by physician. Signing provider agrees with the documented findings, assessment, and plan of care documented by ASSOCIATE FI[employer] SERVICE ENGINEER as a scribe. Past Medical History Past Medical History: Hypertension, Myocardial Infarction ([place]) Additional Past Medical History / Comment(s): staph-leg wound, prosthetic right eye, head injury 10 years ago, 2 cardiac stents History of Any Multi-Drug Resistant Organisms: MRSA Date of last positivie culture/infection: may 2019 MDRO Source:: leg wound Past Surgical History: Heart Catheterization With Stent Additional Past Surgical History / Comment(s): prostethic eye, head (8 or 9 surgeries post accident)-10 years ago Past Psychological History: Anxiety Smoking Status: Current every day smoker, Former smoker, Never smoker Past Alcohol Use History: Occasional Past Drug Use History: Marijuana - Past Family History Mother Family Medical History: Diabetes Mellitus, Seizure Disorder Medications and Allergies Home Medications Medication Instructions Recorded Confirmed Type No Known Home Medications 04/26/23 04/26/23 History Allergies Allergy/AdvReac Type Severity Reaction Status Date / Time gabapentin [From Neurontin] Allergy Unknown Verified 04/26/23 06:56 Physical Exam Vitals: Vital Signs Temp Pulse Resp BP Pulse Ox 04/26/23 05:36 73 19 125/86 94 L 04/26/23 03:06 86 16 127/80 95 04/26/23 01:57 96 04/26/23 00:11 88 18 142/92 93 L 04/25/23 20:06 97.8 F 104 H 20 170/113 97 Intake and Output 04/25/23 04/26/23 04/26/23 22:59 06:59 14:59 Other: Weight 167.829 kg Results 04/26/23 03:04 04/25/23 20:21 Cardiac Enzymes 04/25/23 04/25/23 04/25/23 Range/Units 20:21 20:21 23:38 AST 98 H (17-59) U/L Troponin I 0.023 <0.012 (0.000-0.034) ng/mL 04/26/23 Range/Units 03:04 AST (17-59) U/L Troponin I <0.012 (0.000-0.034) ng/mL Coagulation 04/25/23 Range/Units 20:21 PT 12.1 (10.0-12.5) sec APTT 30.0 (22.0-30.0) sec CBC 04/25/23 Range/Units 20:21 WBC 6.5 (3.8-10.6) k/uL RBC 4.35 (4.30-5.90) m/uL Hgb 14.3 (13.0-17.5) gm/dL Hct 43.4 (39.0-53.0) % Plt Count 80 L (150-450) k/uL Comprehensive Metabolic Panel 04/25/23 Range/Units 20:21 Sodium 136 L (137-145) mmol/L Potassium 4.2 (3.5-5.1) mmol/L Chloride 100 (98-107) mmol/L Carbon Dioxide 25 (22-30) mmol/L BUN 13 (9-20) mg/dL Creatinine 1.18 (0.66-1.25) mg/dL Glucose 146 H (74-99) mg/dL Calcium 9.3 (8.4-10.2) mg/dL AST 98 H (17-59) U/L ALT 41 (4-49) U/L Alkaline Phosphatase 105 (38-126) U/L Total Protein 9.3 H (6.3-8.2) g/dL Albumin 4.6 (3.5-5.0) g/dL Current Medications Generic Name Dose Route Start Last Admin Trade Name Freq PRN Reason Stop Dose Admin Acetaminophen 500 mg 04/25/23 23:19 04/26/23 07:06 Acetaminophen Tab 500 Mg Tab PO 500 mg Q6HR PRN Administration Pain Albuterol Sulfate 2.5 mg 04/26/23 08:00 Albuterol Nebulized 2.5 Mg/3 Ml INHALATION RT-QID [facility] Amlodipine Besylate 10 mg 04/26/23 09:00 Amlodipine 10 Mg Tab PO DAILY [facility] Aspirin 81 mg 04/26/23 09:00 Aspirin 81 Mg PO DAILY [facility] Atorvastatin Calcium 80 mg 04/26/23 09:00 Atorvastatin 80 Mg Tab PO DAILY [facility] Heparin Sodium (Porcine) 5,000 unit 04/26/23 00:00 04/26/23 00:08 Heparin Sodium,Porcine 5,000 Unit/Ml 1 Ml Vial SQ 5,000 unit Q8HR [facility] Administration Sodium Chloride 1,000 mls @ 20 mls/hr 04/25/23 23:15 04/26/23 00:06 Saline 0.9% IV 20 mls/hr .Q24H [facility] Administration Nafcillin Sodium 2 gm/ 100 mls @ 50 mls/hr 04/26/23 08:00 Dextrose/Water IVPB Q8HR [facility] Protocol Magnesium Oxide 400 mg 04/26/23 09:00 Magnesium Oxide 400 Mg Tab PO BID [facility] Nitroglycerin 0.4 mg 04/25/23 23:07 Nitroglycerin Sl Tabs 0.4 Mg Tab SUBLINGUAL Q5M PRN Chest Pain Trimethoprim/Sulfamethoxazole 1 each 04/25/23 23:30 04/26/23 00:09 Sulfamethox-Tmp 800-160mg 1 Each Tab PO 1 each Q12H [facility] Administration Protocol Intake and Output 04/25/23 04/26/23 04/26/23 22:59 06:59 14:59 Other: Weight 167.829 kg 04/25/23 20:21 04/25/23 20:21
[2023-04-26] MEDS: METOPROLOL TARTRATE 25 MG TAB PO SCH (09:58)
[2023-04-26] MEDS: NAFCILLIN 2 GM in DEXTROSE 5% IN WATER 100 ML IVPB SCH (09:58)
[2023-04-26] MEDS: NITROGLYCERIN OINT 1 INCH/GM PACKET TOPICAL SCH (10:00)
[2023-04-26 10:31] LABS: Basophils % (A) 1 %; Eosinophils # (A) 0.2 k/uL (0-0.7); Eosinophils % (A) 4 %; HCT 42.3 % (39.0-53.0); Lymphocytes % (A) 15 %; MCH 33.7 pg (25.0-35.0); MCHC 33.1 g/dL (31.0-37.0); Macrocytosis Slight; Mean Platelet Volume 10.2; Monocytes # (A) 0.4 k/uL (0-1.0); Monocytes % (A) 6 %; Neutrophils # (A) 4.5 k/uL (1.3-7.7); Neutrophils % (A) 72 %; RBC 4.15 m/uL (4.30-5.90); RDW 14.8 % (11.5-15.5); WBC 6.2 k/uL (3.8-10.6)
[2023-04-26 10:49] LABS: Platelet Count 77 k/uL (150-450)
[2023-04-26] MEDS ORDERED: ALPRAZolam 0.25 MG TAB PO PRN (11:39)
[2023-04-26] MEDS ORDERED: NITROGLYCERIN SL TABS 0.4 MG TAB SUBLINGUAL PRN (11:39)
[2023-04-26] MEDS: SODIUM CHLORIDE 0.9% 1,000 ML in EMPTY BAG 1 BAG IV SCH (11:55)
[2023-04-26] MEDS: ATORVASTATIN 80 MG TAB PO STA (11:55)
[2023-04-26] MEDS ORDERED: HYDROmorphone 0.5 MG/0.5 ML SYRINGE IVP PRN ×2 (12:22→12:54)
[2023-04-26] MEDS ORDERED: Magnesium Replacement Protocol 1 EACH MISC MISCELLANE PRN (12:25)
[2023-04-26 12:38] LABS: BUN/Creat Ratio 10.25 Ratio (12.00-20.00); Blood Urea Nitrogen 12.3 mg/dL (9.0-27.0); Calcium 9.3 mg/dL (8.7-10.3); Carbon Dioxide 24.7 mmol/L (21.6-31.8); Chloride 96 mmol/L (96-109); Glucose 137 mg/dL (70-110); Magnesium 1.4 mg/dL (1.5-2.4); Potassium 3.6 mmol/L (3.5-5.5); Sodium 136 mmol/L (135-145)
[2023-04-26] MEDS: ALPRAZolam 0.5 MG TAB PO PRN (13:19)
[2023-04-26] MEDS: MAGNESIUM SULFATE-D5W PMX 1 GM in DEXTROSE/WATER 1 100ML.BAG IVPB SCH (13:20)
[2023-04-26] MEDS: PANTOPRAZOLE 40 MG/10 ML VIAL IVP SCH (13:21)
[2023-04-26] MEDS: IV FLUID CONTINUATION 1,000 ML IV ONE (15:20)
[2023-04-26] MEDS ORDERED: VERAPAMIL 2.5 MG/ML 2 ML AMP ONE (15:36)
[2023-04-26] MEDS ORDERED: fentaNYL (PF) 50 MCG/ML 2 ML AMP ONE (15:36)
[2023-04-26] MEDS ORDERED: LIDOCAINE 1% INJ 10MG/ML (20 ML MDV) ONE (15:36)
--- NOTE | 2023-04-26 15:46 | CA ---
Transthoracic Echo Report Name: Issa Yuan Age: 47 Gender: M : 1975 Exam Date: 04/26/2023 15:11 Exam Location: [facility] Ht (in): 76 Wt (lb): 370 Ordering Physician: Ange Canas Attending/Referring Phys: DIANE COOK PAC Digital Tech Lm Noble RD Procedure CPT: Indications: LV function, CP Cardiac Hx: Technical Quality: Technically difficult study Contrast 1: Total Dose (mL): Contrast 2: Total Dose (mL): MEASUREMENTS (Male / Female) Normal Values 2D ECHO RV Internal Dim ED PLAX 4.2 cm LVOT Diameter 2.2 cm Aortic Root Diameter 2.8 cm LA Systolic Diameter LX 2.1 cm 3.0 - 4.0 / 2.7 - 3.8 cm LV Diastolic Volume MOD BP 70.0 cm??? 67 - 155 / 56 - 104 cm??? LV Systolic Volume MOD BP 34.8 cm??? 22 - 58 / 19 - 49 cm??? LV Ejection Fraction MOD BP 50.3 % >= 55 % LV Cardiac Index MOD BP 837.0 cm???/min???m??? LV Diastolic Volume MOD 4C 77.6 cm??? LV Systolic Volume MOD 4C 34.2 cm??? LV Ejection Fraction MOD 4C 56.0 % LV Cardiac Index MOD 4C 1030.9 cm???/min???m??? LV Diastolic Length 4C 8.7 cm LV Systolic Length 4C 7.7 cm LV Diastolic Volume MOD 2C 62.8 cm??? LV Systolic Volume MOD 2C 35.5 cm??? LV Ejection Fraction MOD 2C 43.4 % LV Cardiac Index MOD 2C 647.9 cm???/min???m??? LV Diastolic Length 2C 8.6 cm LV Systolic Length 2C 7.7 cm LA Volume 56.8 cm??? 18 - 58 / 22 - 52 cm??? LA Volume Index 18.5 cm???/m??? 16 - 28 cm???/m??? Ascending Aorta Diameter 3.0 cm DOPPLER AV Peak Velocity 203.9 cm/s AV Peak Gradient 16.6 mmHg AV Mean Velocity 147.0 cm/s AV Mean Gradient 10.1 mmHg AV Velocity Time Integral 48.8 cm LVOT Peak Velocity 136.4 cm/s LVOT Peak Gradient 7.4 mmHg LVOT Velocity Time Integral 35.5 cm LVOT Stroke Volume 132.5 cm??? LVOT Stroke Volume Index 46.0 ml/m??? LVOT Cardiac Index 3147.8 cm???/min???m??? AV Area Cont Eq vti 2.7 cm??? AV Area Cont Eq pk 2.5 cm??? MV Peak Velocity 114.0 cm/s MV Peak Gradient 5.2 mmHg MV Mean Velocity 56.9 cm/s MV Mean Gradient 1.6 mmHg MV Velocity Time Integral 40.5 cm MR Peak Velocity 188.8 cm/s MR Peak Gradient 14.3 mmHg Mitral E Point Velocity 110.0 cm/s Mitral A Point Velocity 55.5 cm/s Mitral E to A Ratio 2.0 MV Deceleration Time 244.5 ms MV E' Velocity 11.4 cm/s Mitral E to MV E' Ratio 9.7 TR Peak Velocity 120.6 cm/s TR Peak Gradient 5.8 mmHg Right Ventricular Systolic Press 10.8 mmHg PV Peak Velocity 100.8 cm/s PV Peak Gradient 4.1 mmHg FINDINGS Left Ventricle Normal LV size and wall thickness.left ventricular ejection fraction is estimated at 55-60 %. Right Ventricle Normal right ventricular size. Right Atrium Normal right atrial size. Left Atrium Normal left atrial size. Mitral Valve Mitral valve not well visualized. Grossly normal mitral valve as visualized. No mitral stenosis. No mitral regurgitation. Aortic Valve Aortic valve not well visualized. No aortic valve stenosis or regurgitation. Tricuspid Valve Tricuspid valve not well visualized. Trace TR. Pulmonic Valve Pulmonic valve not well visualized. No pulmonic regurgitation. Pericardium Not well visualized. Aorta Normal size aortic root and proximal ascending aorta. CONCLUSIONS Left ventricular ejection fraction 55-60% No mitral regurgitation Trace tricuspid regurgitation Previewed by: Dr. Robert Echeverria DO (Electronically Signed) Final Date: 26 April 2023 15:45
[2023-04-26] MEDS: MIDAZOLAM 2 MG/2 ML VIAL IVP ONE (15:49)
[2023-04-26] MEDS: fentaNYL (PF) 50 MCG/ML 2 ML AMP IVP ONE (15:49)
[2023-04-26] MEDS: LIDOCAINE 1% INJ 10MG/ML (20 ML MDV) SQ ONE (15:51)
[2023-04-26] MEDS: VERAPAMIL SYRINGE (5 MG/10 ML) INTRAARTER ONE (15:53)
[2023-04-26] MEDS: HEPARIN SODIUM 1,000 UN/ML (10ML VL) IVP ONE (15:55)
[2023-04-26] MEDS: IOPAMIDOL-370 100ML BTL INJ ONE (16:03)
--- NOTE | 2023-04-26 16:19 | P.CARDCATH ---
Description of Procedure: PROCEDURES PERFORMED: Left heart catheterization, bilateral coronary angiography, ultrasound guided arterial access INDICATION: Unstable angina CONSENT:I have discussed the risks, benefits and alternative therapies for the above-mentioned procedure and for both sedation/analgesia as well as necessary blood product administration, if indicated, as they pertain to this patient. The patient has indicated understanding and acceptance of the risks and procedures discussed. PROCEDURE: After the risks, benefits and alternatives of the above mentioned procedure explained in detail with the patient, informed consent was obtained. Patient was taken to the catheterization lab and prepped and draped in usual fashion. Ultrasound guidance was used to assess for arterial access. 1% lidocaine was used to anesthetize the right radial artery. A 6-Bhutanese sheath was placed in the right radial artery using modified Seldinger technique and ultrasound guidance. Left coronary angiography was performed with a 5-Bhutanese JL 4 catheter and right coronary angiography was performed with a 5-Bhutanese AR2 catheter in various views. A 5-Bhutanese AR2 catheter was inserted into the left ventricle and pressure measurements were obtained. The right radial sheath was removed and a TR band was placed with hemostasis achieved. The patient tolerated the procedure well. Patient was transported back to the post catheterization holding area in stable condition. Conscious Sedation: Patient was monitored under the direct supervision of myself for conscious sedation using Versed and fentanyl for a total duration of 15 minutes HEMODYNAMICS: Aortic: 128/82 LV: 124/8, LVEDP 17 SELECTIVE CORONARY ARTERIOGRAPHY: LEFT MAIN: The left main is a large caliber vessel which bifurcates into the LAD and circumflex. There is no significant stenosis. LEFT ANTERIOR DESCENDING CORONARY ARTERY: LAD is a large caliber vessel which wraps around to the apex. There are mild luminal irregularities of the LAD LEFT CIRCUMFLEX CORONARY ARTERY: Left circumflex is a moderate caliber vessel without significant stenosis. OM1 has a patent proximal stent. RIGHT CORONARY ARTERY: The right coronary artery is a large caliber vessel which gives off a PDA and PLV branch and is the dominant vessel. There are mild luminal irregularities of the RCA FINAL IMPRESSION: 1. Relatively normal coronary arteries with mild luminal irregularities of the LAD and RCA and patent OM1 stent 2. Mildly elevated left sided filling pressures PLAN: 1. Aggressive risk factor modification per most recent ACC/AHA guidelines. 2. Follow-up in the office in 1-2 weeks.
[2023-04-26] MEDS: ASPIRIN 325 MG TAB PO STA (16:37)
--- NOTE | 2023-04-26 19:34 | HP ---
HISTORY AND PHYSICAL CHIEF COMPLAINT: Chest pain and bilateral leg cellulitis. HISTORY OF PRESENT ILLNESS: This is a 47-year-old gentleman with a past medical history of multiple medical problems including myocardial infarction, stent, and staph infection of the wound, was apparently visiting from [place]. The patient is complaining of chest pain, which is mostly seated in the retrosternal area as well as side of the chest and the patient was admitted for further evaluation and treatment. The patient had bilateral leg cellulitis and apparently was supposed to take Bactrim, but the prescription is in [place]. Cardiology had seen the patient and recommended possible cardiac cath. PAST MEDICAL HISTORY: Reviewed include hypertension, myocardial infarction, rest of the history and chart is also reviewed. HOME MEDICATIONS: Reviewed include none. ALLERGIES: Gabapentin. FAMILY HISTORY: Diabetes and seizure disorder history. SOCIAL HISTORY: Occasional alcohol, smoking. REVIEW OF SYSTEMS: A 14-point review is negative except as mentioned. PHYSICAL EXAMINATION: VITAL SIGNS: Pulse 73, blood pressure 125/80, respirations 19. CHEST: No rhonchi, no crackles. CARDIOVASCULAR: S1, S2. ABDOMEN: Soft, obese, nontender. LEGS: Bilateral leg cellulitis, trace edema also present. NERVOUS SYSTEM: No focal deficits. LABORATORY DATA: Reviewed. ASSESSMENT: 1. Chest pain, possible unstable angina. 2. History of CAD, stent. 3. Bilateral leg cellulitis with failure of outpatient treatment. 4. History of nicotine dependence. 5. Hypertension. 6. History of MRSA. 7. History of anxiety. RECOMMENDATIONS AND DISCUSSION: This 47-year-old gentleman presented with multiple complex medical issues, we will monitor the patient closely. We will initiate broad-spectrum IV antibiotics, infectious disease evaluation, follow closely with Cardiology. I would also recommend a 2D echo with Doppler, also to complete the workup. Otherwise, we will continue to monitor. Cardiology note appreciated. Further recommendations to follow. MMODL / IJN: [id number] /
--- NOTE | 2023-04-26 20:28 | P.CONS ---
History of Present Illness - Reason for Consult Consult date: 04/26/23 Bilateral lower extremity cellulitis Requesting physician: Anisa Pimentel - Chief Complaint Chest pain and shortness of breath x 1 day - History of Present Illness Patient is a 47-year-old male with a past medical history significant for hypertension MD did have a chronic lower extremity swelling/lymphedema and the previous episodes of venous stasis ulcer for the patient used to go to wound care center however mention his ulcer subsequently healed and the patient has been using compression stockings he was prescribed for an episode of cellulitis however the patient forgot his antibiotics and compression stocking at home and has come to the OT on for work mentioned he has been stuck there for 3 weeks and presented to the ER complaining of chest pain x 2 days and also complaining of increasing swelling to the lower extremity along with some redness and pain patient describing the pain to be more of a dull aching to sharp mild to moderate intensity without radiation he did have diffuse swelling and some redness currently denies any open wound or any drainage patient did have some chills but no fever on presentation to the hospital the patient was afebrile and no fever have been recorded subsequently patient was not tachycardic hypotensive or hypoxic did have white count of 6.5 creatinine is 1.18 AST was mildly elevated influenza RSV COVID testing was negative patient did have a chest x-ray no acute cardiopulmonary disease process patient was started on cefazolin infectious was consulted for lower extremity cellulitis and further antibiotic therapy Review of Systems Positive point and negatives has been mentioned in the HPI, complete review of systems was performed and all other systems are negative Past Medical History Past Medical History: Hypertension, Myocardial Infarction ([place]) Additional Past Medical History / Comment(s): staph-leg wound, prosthetic right eye, head injury 10 years ago, 2 cardiac stents Last Myocardial Infarction Date:: 2019 History of Any Multi-Drug Resistant Organisms: MRSA Year Discovered:: may 2019 MDRO Source:: leg wound Past Surgical History: Heart Catheterization With Stent Additional Past Surgical History / Comment(s): prostethic eye, head (8 or 9 surgeries post accident)-10 years ago Date of Last Stent Placement:: 2019 Past Psychological History: Anxiety Smoking Status: Current every day smoker, Former smoker, Never smoker Past Alcohol Use History: Occasional Past Drug Use History: Marijuana - Past Family History Mother Family Medical History: Diabetes Mellitus, Seizure Disorder Medications and Allergies Home Medications Medication Instructions Recorded Confirmed Type Acetaminophen Tab [Tylenol] 500 mg PO Q6HR PRN tab 04/27/23 Rx Aspirin 81 mg PO DAILY #30 tab 04/27/23 Rx Atorvastatin [Lipitor] 80 mg PO DAILY #30 tab 04/27/23 Rx Cephalexin [Keflex] 500 mg PO Q8HR 7 Days #21 cap 04/27/23 Rx Magnesium Oxide [Mag-Ox] 400 mg PO BID #60 tab 04/27/23 Rx Metoprolol Tartrate [Lopressor] 25 mg PO BID #60 tab 04/27/23 Rx Nicotine 21Mg/24Hr Patch [Habitrol] 1 patch TRANSDERM DAILY #30 patch 04/27/23 Rx Nitroglycerin Sl Tabs [Nitrostat] 0.4 mg SUBLINGUAL Q5M PRN #20 tab 04/27/23 Rx amLODIPine [Norvasc] 10 mg PO DAILY #30 tab 04/27/23 Rx lisinopriL [Zestril] 10 mg PO DAILY #30 tab 04/27/23 Rx Allergies Allergy/AdvReac Type Severity Reaction Status Date / Time gabapentin [From Neurontin] Allergy Unknown Verified 04/26/23 06:56 Physical Exam Vitals: Vital Signs Temp Pulse Pulse Resp BP BP Pulse Ox 04/26/23 07:25 97.7 F 80 18 145/85 95 04/26/23 05:36 73 19 125/86 94 L 04/26/23 03:06 86 16 127/80 95 04/26/23 01:57 96 04/26/23 00:11 88 18 142/92 93 L 04/25/23 20:06 97.8 F 104 H 20 170/113 97 Intake and Output 04/25/23 04/26/23 04/26/23 22:59 06:59 14:59 Other: Weight 167.829 kg 167.829 kg GENERAL DESCRIPTION: Middle-aged male lying in bed, no distress. No tachypnea or accessory muscle of respiration use. HEENT: Shows Pallor , no scleral icterus. Oral mucous membrane is dry. No phary ngeal erythema or thrush NECK: Trachea central, no thyromegaly. LUNGS: Unlabored breathing. Clear to auscultation anteriorly. No wheeze or crackle. HEART: S1, S2, regular rate and rhythm. No loud murmur ABDOMEN: Soft, no tenderness , guarding or rigidity, no organomegaly EXTREMITIES: Diffuse swelling to bilateral lower extremity patient did have minimal superficial ulceration with no slough tissue slightly warm and tender to touch SKIN: No rash, no masses palpable. NEUROLOGICAL: The patient is awake, alert, oriented x3, mood and affect normal. Results CBC & Chem 7: 04/27/23 04:28 04/27/23 04:28 Labs: Abnormal Lab Results - Last 24 Hours (Table) 04/25/23 04/25/23 04/26/23 Range/Units 20:21 20:21 03:04 RBC (4.30-5.90) m/uL MCV (80.0-100.0) fL Plt Count 80 L (150-450) k/uL Sodium 136 L (137-145) mmol/L Anion Gap (4.00-12.00) mmol/L BUN/Creatinine Ratio (12.00-20.00) Ratio Glucose 146 H (74-99) mg/dL Magnesium 1.2 L (1.6-2.3) mg/dL Total Bilirubin 1.6 H (0.2-1.3) mg/dL AST 98 H (17-59) U/L Total Protein 9.3 H (6.3-8.2) g/dL HDL Cholesterol 33.80 L (40.00-60.00) mg/dL 04/26/23 04/26/23 Range/Units 03:04 03:04 RBC 4.15 L (4.30-5.90) m/uL MCV 102.0 H (80.0-100.0) fL Plt Count 77 L (150-450) k/uL Sodium (137-145) mmol/L Anion Gap 15.30 H (4.00-12.00) mmol/L BUN/Creatinine Ratio 10.25 L (12.00-20.00) Ratio Glucose 137 H (74-99) mg/dL Magnesium 1.4 L (1.6-2.3) mg/dL Total Bilirubin (0.2-1.3) mg/dL AST (17-59) U/L Total Protein (6.3-8.2) g/dL HDL Cholesterol (40.00-60.00) mg/dL Assessment and Plan (1) Bilateral lower leg cellulitis Current Visit: Yes Status: Acute Code(s): L03.116 - CELLULITIS OF LEFT LOWER LIMB; L03.115 - CELLULITIS OF RIGHT LOWER LIMB SNOMED Code(s): 990440316 Plan: 1patient presented to the hospital with chest pain and this patient also have i ncreasing shortness of breath also bilateral lower extremity swelling left lower extremity did have some redness and warmth concerning for possible component of cellulitis likely from gram-positive skin hank 2-patient has been advised compression stocking to the leg to keep the swelling down in the form of Farooq wrap's 3-cefazolin 2 g every 8 hours We will follow on clinical condition and cultures to further adjust medication if needed Thank you for this consultation we will follow the patient along with you Dictation was produced using [employer] dictation software. please excuse any grammatical, word or spelling errors. Time with Patient: Greater than 30
[2023-04-26] MEDS: HYDROcodone/APAP 5-325MG 1 EACH TAB PO PRN (20:52)
[2023-04-26] MEDS: NICOTINE 21MG/24HR PATCH TRANSDERM SCH (23:02)
[2023-04-27] MEDS ORDERED: HEPARIN SODIUM,PORCINE (1 ML) 2,500 UNIT in SODIUM CHLORIDE 0.9% 250 ML IRRIGATION PRN (07:00)
[2023-04-27] MEDS ORDERED: HEPARIN SODIUM,PORCINE 10,000 UNIT in SODIUM CHLORIDE 0.9% 1,000 ML IRRIGATION PRN (07:00)
[2023-04-27 08:32] VITALS: BP 158/89; RESP 16; TEMP 98.5
[2023-04-27 08:52] LABS: ALT 25 U/L (10-49); AST 46 U/L (14-35); Albumin 3.8 g/dL (3.8-4.9); Albumin/Globulin Ratio 0.97 Ratio (1.60-3.17); Alkaline Phosphatase 109 U/L (41-126); BUN/Creat Ratio 8.75 Ratio (12.00-20.00); Blood Urea Nitrogen 10.5 mg/dL (9.0-27.0); Calcium 8.8 mg/dL (8.7-10.3); Carbon Dioxide 30.3 mmol/L (21.6-31.8); Chloride 98 mmol/L (96-109); Globulin 3.9 g/dL (1.6-3.3); Glucose 118 mg/dL (70-110); Sodium 135 mmol/L (135-145); Total Bilirubin 1.2 mg/dL (0.3-1.2); Total Protein 7.7 g/dL (6.2-8.2)
[2023-04-27 09:01] LABS: Basophils # (A) 0.01 X 10*3/uL (0.00-0.10); Basophils % (A) 0.2 %; Eosinophils # (A) 0.14 X 10*3/uL (0.04-0.35); Eosinophils % (A) 2.5 %; HCT 44.3 % (39.6-50.0); HGB 14.2 g/dL (13.0-17.0); Immature Platelet Fraction 9.6 % (1.1-6.1); Lymphocytes # (A) 0.51 X 10*3/uL (0.90-5.00); Lymphocytes % (A) 8.9 %; MCH 32.8 pg (27.0-32.0); MCHC 32.1 g/dL (32.0-37.0); MCV 102.3 FL (80.0-97.0); Mean Platelet Volume 10.7 FL (9.5-12.2); Monocytes # (A) 0.45 X 10*3/uL (0.20-1.00); Monocytes % (A) 7.9 %; NRBC Per 100 WBC 0 X 10*3/uL (0.00-0.01); Neutrophils # (A) 4.58 X 10*3/uL (1.80-7.70); Neutrophils % (A) 80.3 %; Platelet Count 72 X 10*3/uL (140-440); RBC 4.33 X 10*6/uL (4.40-5.60); RDW 15.3 % (11.5-14.5)
--- NOTE | 2023-04-27 12:02 | P.PN ---
Subjective Progress Note Date: 04/27/23 Principal diagnosis: Reason for follow with bilateral lower extremity cellulitis Patient is a 47-year-old male with a past medical history significant for hypertension [place] did have a chronic lower extremity swelling/lymphedema and the previous episodes of venous stasis ulcer and cellulitis presented to the hospital for chest pain shortness of breath increasing swelling lower extremity and concern for possible cellulitis. On today's evaluation that is 04/27/2023,the patient denies any fever or any chills, patient is breathing comfortably on 2 L nasal cannula oxygen, the patient denies chest pain shortness of breath and no significant cough, patient denies abdominal pain, no nausea vomiting or diarrhea. Swelling redness of lower extremity has decreased in intensity, patient insisting on going home Patient white count of 5.70, creatinine is 1.2 Objective - Vital Signs Vital signs: Vital Signs Temp 98.5 F 04/27/23 07:00 Pulse 100 04/27/23 08:48 Resp 16 04/27/23 07:00 BP 158/89 04/27/23 07:00 Pulse Ox 97 04/27/23 08:38 FiO2 Intake & Output 04/26/23 04/27/23 04/27/23 18:59 06:59 18:59 Intake Total 100 618 360 Output Total 650 Balance 100 -32 360 Weight 167.829 kg Intake: IV 100 Oral 618 360 Output: Urine 650 Other: # Voids 1 2 # Bowel Movements 1 - Exam GENERAL DESCRIPTION: Middle-age male lying in bed in no distress RESPIRATORY SYSTEM: Unlabored breathing , decreased breath sounds at bases HEART: S1 S2 regular rate and rhythm , ABDOMEN: Soft , no tenderness EXTREMITIES: Diffuse swelling to bilateral lower extremity redness minimally decreased - Labs CBC & Chem 7: 04/27/23 04:28 04/27/23 04:28 Labs: Abnormal Lab Results - Last 24 Hours (Table) 04/26/23 04/27/23 04/27/23 Range/Units 03:04 04:28 04:28 RBC 4.33 L (4.40-5.60) X 10*6/uL MCV 102.3 H (80.0-97.0) FL MCH 32.8 H (27.0-32.0) pg RDW 15.3 H (11.5-14.5) % Plt Count 72 L (140-440) X 10*3/uL Lymphocytes # 0.51 L (0.90-5.00) X 10*3/uL Immature Plt Fraction 9.6 H (1.1-6.1) % Anion Gap 15.30 H (4.00-12.00) mmol/L BUN/Creatinine Ratio 10.25 L 8.75 L (12.00-20.00) Ratio Glucose 137 H 118 H (70-110) mg/dL Magnesium 1.4 L (1.5-2.4) mg/dL AST 46 H (14-35) U/L Globulin 3.9 H (1.6-3.3) g/dL Albumin/Globulin Ratio 0.97 L (1.60-3.17) Ratio Assessment and Plan (1) Bilateral lower leg cellulitis Current Visit: Yes Status: Acute Code(s): L03.116 - CELLULITIS OF LEFT LOWER LIMB; L03.115 - CELLULITIS OF RIGHT LOWER LIMB SNOMED Code(s): 199557331 Plan: 1patient presented to the hospital with chest pain and this patient also have increasing shortness of breath also bilateral lower extremity swelling left lower extremity did have some redness and warmth concerning for possible component of cellulitis likely from gram-positive skin hank 2-patient has been advised compression stocking to the leg to keep the swelling down, Farooq wrap was ordered yesterday but did not apply it we will order it again 3-patient to continue with cefazolin 2 g every 8 hours, however the patient insisted on going home discharge antibiotic will be Keflex x 7 days Discussed with GAME [employer]IRD FARMER for admitting team Dictation was produced using [employer] dictation software. please excuse any grammatical, word or spelling errors. Time with Patient: Less than 30
[2023-04-27 12:46] VITALS: PULSE 100
--- NOTE | 2023-04-27 13:01 | P.DS ---
Providers Date of admission: 04/26/23 12:25 Expected date of discharge: 04/27/23 Attending physician: Jensen Barrios MD Consults: 04/25/23 23:07 Consult Physician Routine Consulting Provider: Edward Dixon Consult Reason/Comments: chest pain Do you want consulting provider notified?: Yes 04/26/23 12:23 Consult Physician Urgent Consulting Provider: Denise Guo Consult Reason/Comments: Bilateral lower extremity cellulitis, failure of outpatient tx abx at home Do you want consulting provider notified?: Yes Primary care physician: Physician Nonstaff Hospital Course: Final diagnosis Chest pain, ruled out ACS, possible unstable angina, cardiac catheterization was clean History of coronary artery disease with stenting Bilateral lower extremity leg cellulitis with failure of outpatient treatment History of nicotine dependence Hypertension Morbid obesity with a BMI of 45.0 History of MRSA History of anxiety Continued ongoing nicotine dependence GI prophylaxis DVT prophylaxis Full code Discharge disposition Patient is being discharged in a stable condition with guarded prognosis to home. Patient will follow-up with his primary care provider as well as chief clerk in [place] in the outpatient setting upon discharge. Patient is to continue with current medications and outpatient follow-up with cardiology as scheduled. Total time taken is greater than 35 minutes. Hospital course This is a 47-year-old male who was recently admitted with chest pain feeling unwell with concerns of possible lower extremity cellulitis being closely monitored. Patient being followed by cardiology along with infectious disease maintained on IV cefazolin. Patient apparently has history of lymphedema and had been given Bactrim in the outpatient setting although has been stuck here in [place] with family with car issues and normally lives in [place] and left his medications out there. Patient has been without medications and evaluated by infectious disease started on cefazolin recommend to continue with oral Keflex 3 times daily for the next 7 days. Patient also instructed to continue with Farooq wraps and/or compression stockings to lower extremities and elevating while at rest. Patient to follow-up with his primary care provider as well as cardiology once he returns home. Patient did undergo cardiac catheterization recommending maximizing medical management. Patient is without medications as they are at home in [place] and plans on staying here for a few weeks in [place] with family and will send prescriptions to the pharmacy here. Patient has been cleared by consultations. Please refer to consultation notes for further HPI. Currently no reports of chest pain, shortness of breath, or palpitations. Patient is afebrile. No reports of nausea or vomiting and patient is tolerating diet. Patient will be discharged home today. Physical exam: Gen: This is a 47-year-old male who is awake, alert and oriented x 3, well- developed, well-nourished, morbidly obese HEENT: Head is atraumatic, normocephalic. Pupils equal, round. Sclerae is anicteric. NECK: Supple. No JVD. No lymphadenopathy. No thyromegaly. LUNGS: Diminished breath sounds bilaterally otherwise clear to auscultation. No wheezes or rhonchi. No intercostal retractions. HEART: S1, S2 are muffled ABDOMEN: Soft. Obese bowel sounds are present. No masses. No tenderness. EXTREMITIES: No pedal edema. No calf tenderness. Bilateral lower extremity redness, slightly improved and swelling is improving NEUROLOGICAL: Patient is awake, alert and oriented x3. Cranial nerves 2 through 12 are grossly intact. Please refer to medication reconciliation sheet for a list of medications. The impression and plan of care has been dictated by Anisa Pimentel, Nurse Practitioner as directed. Dr. Tree MD I have performed a history and examination and MDM of this patient, discussed the same with the dictator, and agree with the dictator's assessment and plan as written ,documented as a scribe. Based on total visit time, I have performed more than 50% of the visit. Patient Condition at Discharge: Fair Plan - Discharge Summary New Discharge Prescriptions: New Nicotine 21Mg/24Hr Patch [Habitrol] 1 patch TRANSDERM DAILY #30 patch amLODIPine [Norvasc] 10 mg PO DAILY #30 tab lisinopriL [Zestril] 10 mg PO DAILY #30 tab Aspirin 81 mg PO DAILY #30 tab Cephalexin [Keflex] 500 mg PO Q8HR 7 Days #21 cap Atorvastatin [Lipitor] 80 mg PO DAILY #30 tab Metoprolol Tartrate [Lopressor] 25 mg PO BID #60 tab Magnesium Oxide [Mag-Ox] 400 mg PO BID #60 tab Nitroglycerin Sl Tabs [Nitrostat] 0.4 mg SUBLINGUAL Q5M PRN #20 tab PRN Reason: Chest Pain Acetaminophen Tab [Tylenol] 500 mg PO Q6HR PRN tab PRN Reason: Pain Discharge Medication List Acetaminophen Tab [Tylenol] 500 mg PO Q6HR PRN tab 04/27/23 [Rx] Aspirin 81 mg PO DAILY #30 tab 04/27/23 [Rx] Atorvastatin [Lipitor] 80 mg PO DAILY #30 tab 04/27/23 [Rx] Cephalexin [Keflex] 500 mg PO Q8HR 7 Days #21 cap 04/27/23 [Rx] Magnesium Oxide [Mag-Ox] 400 mg PO BID #60 tab 04/27/23 [Rx] Metoprolol Tartrate [Lopressor] 25 mg PO BID #60 tab 04/27/23 [Rx] Nicotine 21Mg/24Hr Patch [Habitrol] 1 patch TRANSDERM DAILY #30 patch 04/27/23 [Rx] Nitroglycerin Sl Tabs [Nitrostat] 0.4 mg SUBLINGUAL Q5M PRN #20 tab 04/27/23 [Rx] amLODIPine [Norvasc] 10 mg PO DAILY #30 tab 04/27/23 [Rx] lisinopriL [Zestril] 10 mg PO DAILY #30 tab 04/27/23 [Rx] Follow up Appointment(s)/Referral(s): Edward Dixon MD [STAFF PHYSICIAN] - 1 Week (Office will call with appointment time and date.) Nonstaff,Physician [Primary Care Provider] - 1-2 days Patient Instructions/Handouts: Chest Pain (DC), After Radial Heart Catheterization (GEN) Activity/Diet/Wound Care/Special Instructions: . Activity limited until follow-up Follow-up with primary care provider on discharge Follow-up chief clerk outpatient Continue taking medications as prescribed Continue taking antibiotics until finished Elevate lower extremities while at rest Use compression stockings and/or Farooq wraps from the toes up to the knees and elevate while at rest Discharge Disposition: HOME SELF-CARE
== END 2023-04-27 13:17 | disposition home or self-care (01) | DRG 191 ==
LOC: EC 20:03 → 6NMEDSUR 23:07 → OBSVTOIN 04-26 12:25
PROVIDERS: ADMIT Internal Medicine; ATTEND Internal Medicine
PROC: 4A023N7 Measurement of Cardiac Sampling and Pressure, Left Heart, Percutaneous Approach (ICD-10-PCS; principal; 2023-04-26 11:55)
PROC: B2111ZZ Fluoroscopy of Multiple Coronary Arteries using Low Osmolar Contrast (ICD-10-PCS; 2023-04-26 11:55)
DX: I25.110 Atherosclerotic heart disease of native coronary artery with unstable angina pectoris (principal); I10 Essential (primary) hypertension; F17.210 Nicotine dependence, cigarettes, uncomplicated; Z95.5 Presence of coronary angioplasty implant and graft; E66.01 Morbid (severe) obesity due to excess calories; E78.5 Hyperlipidemia, unspecified; E83.42 Hypomagnesemia; I25.2 Old myocardial infarction; E11.51 Type 2 diabetes mellitus with diabetic peripheral angiopathy without gangrene; L03.115 Cellulitis of right lower limb; L03.116 Cellulitis of left lower limb; Z68.42 Body mass index [BMI] 45.0-49.9, adult; Z79.82 Long term (current) use of aspirin; Z79.899 Other long term (current) drug therapy; Z83.3 Family history of diabetes mellitus; Z86.14 Personal history of Methicillin resistant Staphylococcus aureus infection; Z97.0 Presence of artificial eye; F41.9 Anxiety disorder, unspecified; S09.90XS Unspecified injury of head, sequela; Z88.8 Allergy status to other drugs, medicaments and biological substances; Z28.310 Unvaccinated for COVID-19; Z11.52 Encounter for screening for COVID-19
CPT/HCPCS: 36415; 71046; 76937; 80048; 80053; 80061; 83735; 84484; 85025; 85610; 85730; 87040; 87070; 87077; 87186; 87205; 87636; 93005; 93306; 93458; 94640; 94760; 96361; 96365; 96372; 96375; 99285

== ENCOUNTER 2023-07-21 16:50 | Observation (INO) | payer OTHER ==
[2023-07-21 17:15] LABS: Basophils # (A) 0.1 k/uL (0-0.2); Basophils % (A) 1 %; Eosinophils # (A) 0.2 k/uL (0-0.7); Eosinophils % (A) 2 %; HGB 14.6 gm/dL (13.0-17.5); Lymphocytes % (A) 13 %; MCH 33.7 pg (25.0-35.0); MCHC 32.5 g/dL (31.0-37.0); MCV 103.7 fL (80.0-100.0); Macrocytosis Slight; Mean Platelet Volume 9.8; Monocytes # (A) 0.5 k/uL (0-1.0); Monocytes % (A) 7 %; Neutrophils # (A) 5.6 k/uL (1.3-7.7); Neutrophils % (A) 76 %; Platelet Count 106 k/uL (150-450); RBC 4.34 m/uL (4.30-5.90); RDW 14.2 % (11.5-15.5); WBC 7.4 k/uL (3.8-10.6)
[2023-07-21 17:27] LABS: INR 1.1 (<1.2); Partial Thromboplastin Time 26.5 sec (22.0-30.0); Prothrombin Time 11.6 sec (10.0-12.5)
[2023-07-21 17:40] LABS: ALT 44 U/L (4-49); AST 77 U/L (17-59); African American GFR (CKD) >90 (>60 ml/min/1.73 sqM); Albumin 4.5 g/dL (3.5-5.0); Alkaline Phosphatase 172 U/L (38-126); Anion Gap 11 mmol/L; Blood Urea Nitrogen 10 mg/dL (9-20); Calcium 8.9 mg/dL (8.4-10.2); Carbon Dioxide 25 mmol/L (22-30); Chloride 101 mmol/L (98-107); Glucose 208 mg/dL (74-99); Non-African American GFR(CKD) >90 (>60 ml/min/1.73 sqM); Sodium 137 mmol/L (137-145); Total Bilirubin 1.2 mg/dL (0.2-1.3); Total Protein 8.8 g/dL (6.3-8.2)
--- NOTE | 2023-07-21 18:00 | XR ---
EXAMINATION TYPE: XR KUB DATE OF EXAM: 07/21/2023 5:21 PM CLINICAL INDICATION:Male, 47 years old with history of side/ abdominal pain; COMPARISON: None. TECHNIQUE: One radiographic view of the abdomen was obtained. FINDINGS: The bowel gas pattern is nonspecific without dilated loops of small or large bowel. There i s no evidence for organomegaly or pneumoperitoneum. The osseous structures are intact. No abnormal calcifications are present. Fecal material and gas are demonstrated throughout the colon and rectum. IMPRESSION: Nonspecific bowel gas pattern without radiographic evidence for acute process.
--- NOTE | 2023-07-21 19:44 | ED ---
Dizziness HPI - General Chief Complaint: Syncope Stated Complaint: Side Pain Time Seen by Provider: 07/21/23 19:12 Source: patient Mode of arrival: ambulatory Limitations: no limitations - History of Present Illness Initial Comments: 47-year-old male with a past medical history significant for obesity, hypertension, hyperlipidemia, coronary artery disease status post stenting presenting to the ED with a chief complaint of syncope. Patient reports 4 to 5 days ago stood up from a chair and had a syncopal episode and fell to the ground. He reports another syncopal event 2 days ago in which she also stood up from a chair and fell to the ground. This was witnessed by his mother and reportedly states that he lost consciousness for 4 to 5 minutes. Denies head injury at this time. Patient is on baby aspirin. Patient denies headache. Denies any preceding chest pain or shortness of breath prior to the falls. Currently denies any chest pain or shortness of breath. Also reports over the past week he has had episodes of anxiety where he reports that he feels "shaky". Patient is a pack per day smoker. Secondary to the syncopal episodes notes injury of his lower back. Denies incontinence or saddle anesthesia. No other complaints at this time. - Related Data Previous Rx's Medication Instructions Recorded Acetaminophen Tab [Tylenol] 500 mg PO Q6HR PRN tab 04/27/23 Aspirin 81 mg PO DAILY #30 tab 04/27/23 Atorvastatin [Lipitor] 80 mg PO DAILY #30 tab 04/27/23 Cephalexin [Keflex] 500 mg PO Q8HR 7 Days #21 cap 04/27/23 Magnesium Oxide [Mag-Ox] 400 mg PO BID #60 tab 04/27/23 Metoprolol Tartrate [Lopressor] 25 mg PO BID #60 tab 04/27/23 Nicotine 21Mg/24Hr Patch [Habitrol] 1 patch TRANSDERM DAILY #30 patch 04/27/23 Nitroglycerin Sl Tabs [Nitrostat] 0.4 mg SUBLINGUAL Q5M PRN #20 tab 04/27/23 amLODIPine [Norvasc] 10 mg PO DAILY #30 tab 04/27/23 lisinopriL [Zestril] 10 mg PO DAILY #30 tab 04/27/23 Allergies Allergy/AdvReac Type Severity Reaction Status Date / Time gabapentin [From Neurontin] Allergy Unknown Verified 07/21/23 16:56 Review of Systems ROS Statement: Those systems with pertinent positive or pertinent negative responses have been documented in the HPI. ROS Other: All systems not noted in ROS Statement are negative. Past Medical History Past Medical History: Hypertension, Myocardial Infarction ([place]) Additional Past Medical History / Comment(s): staph-leg wound, prosthetic right eye, head injury 10 years ago, 2 cardiac stents Last Myocardial Infarction Date:: 2019 History of Any Multi-Drug Resistant Organisms: MRSA Date of last positivie culture/infection: may 2019 MDRO Source:: leg wound Past Surgical History: Heart Catheterization With Stent Additional Past Surgical History / Comment(s): prostethic eye, head (8 or 9 surg eries post accident)-10 years ago Date of Last Stent Placement:: 2019 Past Psychological History: Anxiety Smoking Status: Current every day smoker, Former smoker, Never smoker Past Alcohol Use History: Occasional Past Drug Use History: Marijuana - Past Family History Mother Family Medical History: Diabetes Mellitus, Seizure Disorder General Exam Limitations: no limitations General appearance: alert, in no apparent distress Head exam: Present: other (No Rios sign or raccoon's eyes.) Eye exam: Present: PERRL, EOMI Neck exam: Present: normal inspection Respiratory exam: Present: normal lung sounds bilaterally Cardiovascular Exam: Present: regular rate GI/Abdominal exam: Present: soft. Absent: distended, tenderness, guarding, rebound, rigid Extremities exam: Present: normal inspection Back exam: Present: other (No midline cervical or thoracic tenderness to palpation. Does have upper lumbar and left paraspinal tenderness to palpation.) Neurological exam: Present: alert, oriented X3 Skin exam: Present: warm, dry Course Vital Signs 07/21/23 07/21/23 07/21/23 16:52 19:41 21:00 Temperature 98.2 F Pulse Rate 105 H 92 95 Respiratory 20 16 16 Rate Blood Pressure 179/101 158/92 168/90 O2 Sat by Pulse 98 97 97 Oximetry Medical Decision Making - Medical Decision Making Was pt. sent in by a medical professional or institution (, PA, [facility], urgent care, hospital, or prison...) When possible be specific @ -No Did you speak to anyone other than the patient for history (EMS, parent, family, police, friend...)? What history was obtained from this source @ -No Did you review nursing and triage notes (agree or disagree)? Why? @ -I reviewed and agree with nursing and triage notes Were old charts reviewed (outside hosp., previous admission, EMS record, old E KG, old radiological studies, urgent care reports/EKG's, prison records)? Report findings @ -No old charts were reviewed Differential Diagnosis (chest pain, altered mental status, abdominal pain women, abdominal pain men, vaginal bleeding, weakness, fever, dyspnea, syncope, headache, dizziness, GI bleed, back pain, seizure, CVA, palpatations, mental health, musculoskeletal)? @ -Differential Syncope: Valvular disease, hypertrophic cardiomyopathy, pulmonary embolism, tamponade, tachycardia, bradycardia, [place], hypovolemia, hemorrhage, dissection, anemia, intracranial hemorrhage, seizure, hypoglycemia, carbon monoxide poisoning, this is not meant to be an all-inclusive list. EKG interpreted by me (3pts min.). @ -EKG interpreted me showing a sinus tachycardia at [address] or T wave changes. WA 180, QRS 95, QT/QTc 344/401. X-rays interpreted by me (1pt min.). @ -Chest x-ray interpreted me which revealed no evidence of acute finding. KUB interpreted me which revealed no evidence of acute finding. X-ray of the lumbar spine interpreted me which revealed no evidence of acute finding. CT interpreted by me (1pt min.). @ -None done U/S interpreted by me (1pt. min.). @ -None done What testing was considered but not performed or refused? (CT, X-rays, U/S, labs)? Why? @ -None What meds were considered but not given or refused? Why? @ -None Did you discuss the management of the patient with other professionals (professionals i.e. , PA, [facility], lab, RT, psych nurse, social sciences chair, power project manager, teacher, loan officer, upper caser)? Give summary @ -Case discussed with Dr. Morse, who accepts admission. Was smoking cessation discussed for >3mins.? @ -No Was critical care preformed (if so, how long)? @ -No Were there social determinants of health that impacted care today? How? (Homelessness, low income, unemployed, alcoholism, drug addiction, transportation, low edu. Level, literacy, decrease access to med. care, penitentiary, rehab)? @ -No Was there de-escalation of care discussed even if they declined (Discuss DNR or withdrawal of care, Hospice)? DNR status @ -No What co-morbidities impacted this encounter? (DM, HTN, Smoking, COPD, CAD, Cancer, CVA, ARF, Chemo, Hep., AIDS, mental health diagnosis, sleep apnea, morbid obesity)? @ -Obesity, hypertension, hyperlipidemia, smoking Was patient admitted / discharged? Hospital course, mention meds given and route, prescriptions, significant lab abnormalities, going to OR and other pertinent info. @ -Admission 47-year-old male presenting to the ED with complaints of 2 syncopal episodes without any preceding chest pain or shortness of breath. Notes that he did hurt his lower back secondary to the syncopal episodes however imaging at this time revealed no evidence of acute finding. Laboratory studies reviewed. Labs including CBC CMP largely unremarkable. Initial troponin undetectable. Additionally, KUB and chest x-ray revealed no evidence of acute finding. With a history of coronary artery disease patient will be admitted to observation with consult to cardiology. Discussed plan of care with patient who is in agreement. Undiagnosed new problem with uncertain prognosis? @ -No Drug Therapy requiring intensive monitoring for toxicity (Heparin, Nitro, Insulin, Cardizem)? @ -No Were any procedures done? @ -No Diagnosis/symptom? @ -Syncope, back pain Acute, or Chronic, or Acute on Chronic? @ -Acute Uncomplicated (without systemic symptoms) or Complicated (systemic symptoms)? @ -Complicated Side effects of treatment? @ -No Exacerbation, Progression, or Severe Exacerbation? @ -No Poses a threat to life or bodily function? How? (Chest pain, [place], [place], pneumonia, PE, COPD, DKA, ARF, appy, cholecystitis, CVA, Diverticulitis, Homicidal, Suicidal, threat to staff... and all critical care pts) @ -Possibly, however at this time unlikely - Lab Data Result diagrams: 07/21/23 17:07/21/23 17: Lab Results 07/21/23 07/21/23 07/21/23 Range/Units 17:01 17: 17: WBC 7.4 (3.8-10.6) k/uL RBC 4.34 (4.30-5.90) m/uL Hgb 14.6 (13.0-17.5) gm/dL Hct 45.0 (39.0-53.0) % MCV 103.7 H (80.0-100.0) fL MCH 33.7 (25.0-35.0) pg MCHC 32.5 (31.0-37.0) g/dL RDW 14.2 (11.5-15.5) % Plt Count 106 L (150-450) k/uL MPV 9.8 Neutrophils % 76 % Lymphocytes % 13 % Monocytes % 7 % Eosinophils % 2 % Basophils % 1 % Neutrophils # 5.6 (1.3-7.7) k/uL Lymphocytes # 1.0 (1.0-4.8) k/uL Monocytes # 0.5 (0-1.0) k/uL Eosinophils # 0.2 (0-0.7) k/uL Basophils # 0.1 (0-0.2) k/uL Macrocytosis Slight PT 11.6 (10.0-12.5) sec INR 1.1 (<1.2) APTT 26.5 (22.0-30.0) sec Sodium 137 (137-145) mmol/L Potassium 4.0 (3.5-5.1) mmol/L Chloride 101 (98-107) mmol/L Carbon Dioxide 25 (22-30) mmol/L Anion Gap 11 mmol/L BUN 10 (9-20) mg/dL Creatinine 0.84 (0.66-1.25) mg/dL Est GFR (CKD-EPI)AfAm >90 (>60 ml/min/1.73 sqM) Est GFR (CKD-EPI)NonAf >90 (>60 ml/min/1.73 sqM) Glucose 208 H (74-99) mg/dL Calcium 8.9 (8.4-10.2) mg/dL Total Bilirubin 1.2 (0.2-1.3) mg/dL AST 77 H (17-59) U/L ALT 44 (4-49) U/L Alkaline Phosphatase 172 H (38-126) U/L Troponin I (0.000-0.034) ng/mL Total Protein 8.8 H (6.3-8.2) g/dL Albumin 4.5 (3.5-5.0) g/dL 07/21/23 Range/Units 17:01 WBC (3.8-10.6) k/uL RBC (4.30-5.90) m/uL Hgb (13.0-17.5) gm/dL Hct (39.0-53.0) % MCV (80.0-100.0) fL MCH (25.0-35.0) pg MCHC (31.0-37.0) g/dL RDW (11.5-15.5) % Plt Count (150-450) k/uL MPV Neutrophils % % Lymphocytes % % Monocytes % % Eosinophils % % Basophils % % Neutrophils # (1.3-7.7) k/uL Lymphocytes # (1.0-4.8) k/uL Monocytes # (0-1.0) k/uL Eosinophils # (0-0.7) k/uL Basophils # (0-0.2) k/uL Macrocytosis PT (10.0-12.5) sec INR (<1.2) APTT (22.0-30.0) sec Sodium (137-145) mmol/L Potassium (3.5-5.1) mmol/L Chloride (98-107) mmol/L Carbon Dioxide (22-30) mmol/L Anion Gap mmol/L BUN (9-20) mg/dL Creatinine (0.66-1.25) mg/dL Est GFR (CKD-EPI)AfAm (>60 ml/min/1.73 sqM) Est GFR (CKD-EPI)NonAf (>60 ml/min/1.73 sqM) Glucose (74-99) mg/dL Calcium (8.4-10.2) mg/dL Total Bilirubin (0.2-1.3) mg/dL AST (17-59) U/L ALT (4-49) U/L Alkaline Phosphatase (38-126) U/L Troponin I <0.012 (0.000-0.034) ng/mL Total Protein (6.3-8.2) g/dL Albumin (3.5-5.0) g/dL Disposition Clinical Impression: Syncope Disposition: ADMITTED IP TO THIS [facility] Condition: Good Referrals: None,Stated [Primary Care Provider] - 1-2 days Time of Disposition: 21:30
--- NOTE | 2023-07-21 20:01 | XR ---
EXAMINATION TYPE: XR lumbar spine 2 or 3V DATE OF EXAM: 07/21/2023 7:56 PM CLINICAL INDICATION:Male, 47 years old with history of s/p fall, pain upper lumbar spine; [facility] COMPARISON: None TECHNIQUE: Frontal, lateral and coned in L5-S1 lateral views of the spine. FINDINGS: No evidence of any acute osseous pathology. No evidence of loss of vertebral body height i s seen. There is normal alignment of the lumbar vertebral bodies. Mild multilevel degenerative change s are identified. IMPRESSION: 1. No acute fracture. 2. Mild multilevel disc degeneration.
--- NOTE | 2023-07-21 20:09 | XR ---
EXAMINATION TYPE: XR chest 2V DATE OF EXAM: 07/21/2023 8:01 PM CLINICAL INDICATION:Male, 47 years old with history of syncope; [facility] COMPARISON: Chest radiographs from 04/25/2023 TECHNIQUE: XR chest 2V Frontal and lateral views of the chest. FINDINGS: Lungs/Pleura: There is no evidence of pleural effusion, focal consolidation, or pneumothorax. Pulmonary vascularity: Unremarkable. Heart/mediastinum: Cardiomediastinal silhouette is unremarkable. Musculoskeletal: No acute osseous pathology. IMPRESSION: No acute cardiopulmonary disease/process.
[2023-07-21] MEDS: ACETAMINOPHEN TAB 500 MG TAB PO STA (20:10)
[2023-07-21] MEDS: MORPHINE SULFATE 2 MG/ML SYRINGE IVP STA (20:11)
[2023-07-21] MEDS ORDERED: ACETAMINOPHEN TAB 325 MG TAB PO PRN (21:58)
[2023-07-21] MEDS ORDERED: NALOXONE 0.4 MG/ML 1 ML VIAL IV PRN (21:58)
[2023-07-21] MEDS ORDERED: ONDANSETRON 4 MG/2 ML VIAL IVP PRN (21:58)
[2023-07-21] MEDS: NICOTINE 21MG/24HR PATCH TRANSDERM SCH (23:51)
[2023-07-21] MEDS: SODIUM CHLORIDE 0.9% 1,000 ML IV SCH (23:51)
[2023-07-22] MEDS: HYDROmorphone 0.5 MG/0.5 ML SYRINGE IVP PRN (00:22)
--- NOTE | 2023-07-22 04:53 | P.HPIM ---
History of Present Illness H&P Date: 07/22/23 Patient is a 47-year-old male with a PMH of CAD status post stenting, hypertension, type II DM, hyperlipidemia, and chronic bilateral lower extremity lymphedema who presents to the emergency room after multiple episodes of syncope. The patient reports that over the past 1 week, he has experienced 2 episodes of lightheadedness after immediately standing up from a sitting position, leading to falls. He denied experiencing chest discomfort, shortness of breath, or palpitations prior to these episodes. Notes that the episodes were witnessed by his mother who denied noticing any shaking movements. Patient denied experiencing tongue bites or urinary incontinence during these episodes. He had minimal postictal confusion and that the episode lasted only a few minutes as per patient. He denied experiencing head trauma during these episodes. Denied headache or neck pain. Does also report a right flank pain due to these falls and hitting pieces of furniture. Denies experiencing cough, feve r, chills, nausea, vomiting, abdominal pain, diarrhea. Chest x-ray in the emergency room was unremarkable with a lumbar spinal x-ray also unremarkable. EKG revealed sinus tachycardia at [address]/T wave changes noted as reviewed by me. Laboratory evaluation was remarkable for WBC count 7.4, MCV 103.7, platelet count 106, troponin less than 0.012, AST 77, ALT 44, alk phos 172, with BUN 10 and creatinine 0.84. ED documentation reviewed and case discussed with ED provider. Review of systems: Pertinent positives and negatives as discussed in HPI, a complete review of systems was performed and all other systems are negative. Physical examination: Vital signs reviewed General: non toxic, no distress, appears older than stated age, morbidly obese Derm: no unusual rashes/lesions, warm Head: atraumatic, normocephalic, symmetric Eyes: Prosthetic right eye, EOMI, no lid lag, anicteric sclera, pupils equal round reactive to light ENT: Nose and ears atraumatic Neck: No cervical lymphadenopathy, trachea midline, supple Mouth: no lip lesion, mucus membranes moist Cardiovascular: S1S2 reg, no murmur, positive dorsalis pedis pulse bilateral, bilateral lower extremity lymphedema to thighs noted Lungs: CTA bilateral, no rhonchi, no rales, no accessory muscle use Abdominal: soft, nontender to palpation, no guarding Ext: muscle strength 5 out of 5 in all 4 extremities grossly, no gross muscle atrophy, no contractures, Neuro: CN II-XI grossly intact, no gross focal neuro deficits Psych: Alert, oriented, appropriate affect Assessment: Syncope Chronic conditions: Hypertension, type II DM, hyperlipidemia, macrocytosis, coronary artery disease Imaging: Chest x-ray in the emergency room was unremarkable with a lumbar spinal x-ray also unremarkable. EKG revealed sinus tachycardia at [address]/T wave changes noted as reviewed by me. Data Review: Laboratory evaluation was remarkable for WBC count 7.4, MCV 103.7, platelet count 106, troponin less than 0.012, AST 77, ALT 44, alk phos 172, with BUN 10 and creatinine 0.84. Plan: Cardiac monitoring Obtain echocardiogram Obtain CT brain Fall precautions continue with the IV fluids normal saline 75 cc/h Insulin sliding scale and blood glucose monitoring Resume remaining home medications once reconciled DVT prophylaxis: Lovenox subcu The patient is admitted with an anticipated less than 2 midnight stay for evaluation of syncope CODE STATUS: Full Code Discussed with: Patient Anticipated discharge place: Home Past Medical History Past Medical History: Hypertension, Myocardial Infarction ([place]) Additional Past Medical History / Comment(s): staph-leg wound, prosthetic right eye, head injury 10 years ago, 2 cardiac stents Last Myocardial Infarction Date:: 2019 History of Any Multi-Drug Resistant Organisms: MRSA Date of last positivie culture/infection: may 2019 MDRO Source:: leg wound Past Surgical History: Heart Catheterization With Stent Additional Past Surgical History / Comment(s): prostethic eye, head (8 or 9 surgeries post accident)-10 years ago Date of Last Stent Placement:: 2019 Past Psychological History: Anxiety Smoking Status: Current every day smoker, Former smoker, Never smoker Past Alcohol Use History: Occasional Past Drug Use History: Marijuana - Past Family History Mother Family Medical History: Diabetes Mellitus, Seizure Disorder Medications and Allergies Home Medications Medication Instructions Recorded Confirmed Type Acetaminophen Tab [Tylenol] 500 mg PO Q6HR PRN tab 04/27/23 Rx Aspirin 81 mg PO DAILY #30 tab 04/27/23 Rx Atorvastatin [Lipitor] 80 mg PO DAILY #30 tab 04/27/23 Rx Cephalexin [Keflex] 500 mg PO Q8HR 7 Days #21 cap 04/27/23 Rx Magnesium Oxide [Mag-Ox] 400 mg PO BID #60 tab 04/27/23 Rx Metoprolol Tartrate [Lopressor] 25 mg PO BID #60 tab 04/27/23 Rx Nicotine 21Mg/24Hr Patch [Habitrol] 1 patch TRANSDERM DAILY #30 patch 04/27/23 Rx Nitroglycerin Sl Tabs [Nitrostat] 0.4 mg SUBLINGUAL Q5M PRN #20 tab 04/27/23 Rx amLODIPine [Norvasc] 10 mg PO DAILY #30 tab 04/27/23 Rx lisinopriL [Zestril] 10 mg PO DAILY #30 tab 04/27/23 Rx Allergies Allergy/AdvReac Type Severity Reaction Status Date / Time gabapentin [From Neurontin] Allergy Unknown Verified 07/21/23 16:56 Physical Exam Vitals: Vital Signs Temp Pulse Resp BP Pulse Ox 07/22/23 04:32 93 18 148/78 98 07/22/23 00:00 92 16 162/98 07/21/23 21:00 95 16 168/90 97 07/21/23 19:41 92 16 158/92 97 07/21/23 16:52 98.2 F 105 H 20 179/101 98 Intake and Output 07/21/23 07/21/23 07/22/23 14:59 22:59 06:59 Other: Weight 164.2 kg Results CBC & Chem 7: 07/21/23 17:01 07/21/23 17:01 Labs: Abnormal Lab Results - Last 24 Hours (Table) 07/21/23 07/21/23 Range/Units 17:01 17:01 MCV 103.7 H (80.0-100.0) fL Plt Count 106 L (150-450) k/uL Glucose 208 H (74-99) mg/dL AST 77 H (17-59) U/L Alkaline Phosphatase 172 H (38-126) U/L Total Protein 8.8 H (6.3-8.2) g/dL
--- NOTE | 2023-07-22 07:43 | CT ---
EXAMINATION TYPE: CT brain wo con DATE OF EXAM: 07/22/2023 COMPARISON: None HISTORY: 47-year-old male with a pain after fall, syncope TECHNIQUE: Examination was done in axial plane without intravenous contrast. Coronal and sagittal r econstructions performed. CT DLP: 1281.7 mGycm Automated exposure control for dose reduction was used. FINDINGS: There is no evidence of acute intracranial hemorrhage, acute ischemic changes, mass, mass-effect, or extra-axial fluid collection. There is no effacement of cerebral sulci or basal subarachnoid cister ns. There is no hydrocephalus. There is no midline shift. Hastings-white matter distinction is preserv ed. Paranasal sinuses and mastoid air cells well pneumatized. 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 IMPRESSION: No acute intracranial abnormality seen.
[2023-07-22] MEDS: ENOXAPARIN 40 MG/0.4 ML SYRINGE SQ SCH (08:27)
[2023-07-22 08:32] LABS: Glucose,Whole Blood 113 mg/dL (70-110)
[2023-07-22] MEDS: INSULIN ASPART (NovoLOG) 100 UNIT/ML VIAL SQ SCH (08:34)
[2023-07-22 12:16] LABS: Glucose,Whole Blood 135 mg/dL (70-110)
[2023-07-22] MEDS ORDERED: HYDROmorphone 0.5 MG/0.5 ML SYRINGE IVP PRN (12:31)
--- NOTE | 2023-07-22 12:36 | CA ---
Transthoracic Echo Report Name: Issa Yuan Age: 47 Gender: M : 1975 Exam Date: 07/22/2023 10:23 Exam Location: [place] [facility] Ht (in): 76 Wt (lb): 362 Ordering Physician: Antonella Morse MD Attending/Referring Phys: Revit Drafter Gita Kate RDCS Procedure CPT: Indications: Syncope Cardiac Hx: Technical Quality: Very technically difficult study Contrast 1: Definity Total Dose (mL): 2 Contrast 2: Total Dose (mL): MEASUREMENTS (Male / Female) Normal Values FINDINGS Left Ventricle Normal left ventricular systolic function with no obvious regional wall motion abnormalities. Left ventricular ejection fraction is estimated at 55-60 %. Right Ventricle Right Atrium Left Atrium Mitral Valve Aortic Valve Tricuspid Valve Pulmonic Valve Pericardium No pericardial effusion. Aorta CONCLUSIONS Normal LV systolic function Previewed by: Dr. Edward Dixon MD (Electronically Signed) Final Date: 22 Jul 2023 12:36
[2023-07-22] MEDS: HYDROcodone/APAP 7.5-325MG 1 EACH TAB PO PRN (12:39)
[2023-07-22 14:06] LABS: HCT 43.9 % (39.0-53.0); HGB 13.9 gm/dL (13.0-17.5); MCH 33.5 pg (25.0-35.0); MCHC 31.6 g/dL (31.0-37.0); MCV 105.9 fL (80.0-100.0); Macrocytosis Moderate; Mean Platelet Volume 9.3; RBC 4.15 m/uL (4.30-5.90); RDW 14.1 % (11.5-15.5); WBC 5.8 k/uL (3.8-10.6)
[2023-07-22 14:32] LABS: African American GFR (CKD) >90 (>60 ml/min/1.73 sqM); Anion Gap 7 mmol/L; Blood Urea Nitrogen 6 mg/dL (9-20); Calcium 8.9 mg/dL (8.4-10.2); Carbon Dioxide 29 mmol/L (22-30); Chloride 97 mmol/L (98-107); Glucose 206 mg/dL (74-99); Non-African American GFR(CKD) >90 (>60 ml/min/1.73 sqM); Potassium 3.7 mmol/L (3.5-5.1); Sodium 133 mmol/L (137-145)
[2023-07-22 14:47] LABS: Platelet Count 95 k/uL (150-450)
[2023-07-22 17:08] LABS: Glucose,Whole Blood 168 mg/dL (70-110)
[2023-07-22] MEDS ORDERED: FUROSEMIDE 40 MG TAB PO PRN (17:47)
[2023-07-22] MEDS ORDERED: POTASSIUM CHLORIDE ER 20 MEQ TAB.ER PO PRN (17:47)
--- NOTE | 2023-07-22 18:01 | P.PN ---
Subjective Progress Note Date: 07/22/23 (seen at 1230) Patient is a 47-year-old male with a history of coronary artery disease status post stenting, hypertension, dyslipidemia, and diabetes mellitus type 2 who presented to the emergency department with complaints of back pain. Patient had syncope 2 days prior and suffered a significant fall. On arrival to the emergency department he was noted to be hypertensive and tachycardic with a blood pressure of 179/101 and a heart rate of 105. Initial laboratory and the analysis in the emergency department was remarkable for platelet count of 106. KUB in the ER showed nonspecific bowel gas pattern with no acute process. Lumbar spine x-ray demonstrated multiple level degenerative changes with no evidence of loss of vertebral height. Chest x-ray demonstrated no acute cardiopulmonary process. CT head demonstrated no acute intracranial abnormality. Patient was placed in observation for further monitoring. Patient seen and examined at bedside. He states his back pain is currently better with the Dilaudid. He denies any numbness or tingling down his legs. He denies any lower extremity weakness. He describes his syncopal event as feeling lightheaded and dizzy and rising to stand from the chair and then the next thing he remembers is waking up on the floor. He denies any loss of bowel or bladder. No tongue biting. No shaking per his mother. He was passed out for approximately 3 to 4 minutes. He then went about his normal day and only proceeded to the ER due to the back pain. Vital signs reviewed General: Nontoxic, no distress, appears at stated age, obesity Cardiovascular: S1S2 reg, no murmur Lungs: Decreased bilateral, no rhonchi, no rales, no accessory muscle use Abdominal: Soft, nontender to palpation, no guarding Ext: No gross muscle atrophy, 2+ non pitting edema b/l lower extremities, no contractures Neuro: CN II-XI grossly intact, no focal neuro deficits Psych: Alert, oriented, appropriate affect Assessment/Plan: Syncope with fall from standing Intractable back pain Atherosclerotic coronary artery disease with history of PCI Hypertension Dyslipidemia -Continue with telemetry -Check orthostatic vitals. Reviewed and negative. -Check echocardiogram ejection fraction 55 to 60% without pericardial effusion but technically difficult study. -Suspect that patient should have cardiac monitoring on discharge. He states he was prescribed this in the past before after his heart attack but it would not stay attached and he did not complete all of the testing. -Aspirin 81 mg daily, Lipitor 80 mg daily, lisinopril 10 mg daily, metoprolol 25 mg twice daily Diabetes mellitus type 2 -Sliding scale insulin -Follow blood sugars -Hold metformin Class 3 obesity with BMI 44.1 Imaging: None new Data Review: Labs for today ordered and reviewed. Platelet count 95, sodium 133, glucose 206. DVT prophylaxis: SCDs Anticipated discharge date: Pending Clinical Course Anticipated discharge place: Pending Clinical Course This dictation was prepared using [employer] voice recognition software. Though every attempt is made to correct errors during dictation some may still exist. Objective - Vital Signs Vital signs: Vital Signs Temp 98.3 F 07/22/23 15:51 Pulse 95 07/22/23 15:51 Resp 18 07/22/23 15:51 BP 156/85 07/22/23 15:51 Pulse Ox 97 07/22/23 07:00 FiO2 Intake & Output 07/21/23 07/22/23 07/22/23 18:59 06:59 18:59 Intake Total 920 Balance 920 Weight 164.2 kg 164.2 kg Intake: Oral 920 Other: # Voids 3 # Bowel Movements 1 - Labs CBC & Chem 7: 07/22/23 13:57 07/22/23 13:57 Labs: Abnormal Lab Results - Last 24 Hours (Table) 07/22/23 07/22/23 07/22/23 Range/Units 08:32 12:15 13:57 RBC 4.15 L (4.30-5.90) m/uL MCV 105.9 H (80.0-100.0) fL Plt Count 95 L (150-450) k/uL Sodium (137-145) mmol/L Chloride (98-107) mmol/L BUN (9-20) mg/dL Glucose (74-99) mg/dL POC Glucose (mg/dL) 113 H 135 H (70-110) mg/dL 07/22/23 07/22/23 Range/Units 13:57 17:07 RBC (4.30-5.90) m/uL MCV (80.0-100.0) fL Plt Count (150-450) k/uL Sodium 133 L (137-145) mmol/L Chloride 97 L (98-107) mmol/L BUN 6 L (9-20) mg/dL Glucose 206 H (74-99) mg/dL POC Glucose (mg/dL) 168 H (70-110) mg/dL
[2023-07-22] MEDS: amLODIPine 10 MG TAB PO SCH (18:07)
[2023-07-22] MEDS: METOPROLOL TARTRATE 25 MG TAB PO SCH (20:12)
[2023-07-22 20:14] LABS: Glucose,Whole Blood 144 mg/dL (70-110)
[2023-07-23 02:02] LABS: Glucose,Whole Blood 134 mg/dL (70-110)
[2023-07-23 06:24] LABS: Glucose,Whole Blood 123 mg/dL (70-110)
[2023-07-23] MEDS: lisinopriL 10 MG TAB PO SCH (08:16)
[2023-07-23] MEDS: ASPIRIN 81 MG PO SCH (08:16)
[2023-07-23] MEDS: ATORVASTATIN 80 MG TAB PO SCH (08:16)
[2023-07-23 08:26] VITALS: RESP 16
[2023-07-23 12:28] LABS: Glucose,Whole Blood 120 mg/dL (70-110)
[2023-07-23] MEDS: lisinopriL 10 MG TAB PO STA (15:39)
--- NOTE | 2023-07-23 15:39 | P.CRDCN ---
History of Present Illness Consult date: 07/23/23 Consult reason: other (syncope) Chief complaint: syncope History of present illness: History of present illness: Patient is a pleasant 47-year-old male with significant past medical history of CAD status post PCI, hypertension, type 2 diabetes, hyperlipidemia, and chronic bilateral lower extremity lymphedema who presented to the emergency department with complaints of syncope. He reports approximately 1 week ago he was feeling sick and was having nausea and vomiting and felt dehydrated because he was not eating. He did have 1 episode of syncope after standing up from his chair. Then 4 days later he had another episode of syncope while standing up again this time he landed on a hardwood table and injured his back. His mother witnessed this event and reports that he was only out for approximately 4 seconds. Waited 2 days before coming to the emergency department presented mostly related to back pain. He denies any chest pain or pressure. No shortness of breath. Denies any palpitations. Labs reviewed: Hemoglobin 13.9, sodium 133, potassium 3.7, creatinine 0.82, troponin negative x 3. Echocardiogram was repeated 07/22/2023 Limited views, EF 55-60%, no pericardial effusion. Head CT with no acute findings. His blood pressure has been elevated in the [id number], he states this is baseline. Orthostatic vital signs were checked yesterday and were negative. He did have a prior cardiac workup in April 2023 for chest pain and ultimately underwent a left heart catheterization 04/26/[address] Echeverria, relatively normal coronary arteries and patent OM1 stent. Patient does report that he is feeling better today. His main complaint is low back pain. REVIEW OF SYSTEMS: No fever or chills. No cough or expectoration. No diaphoresis. Patient denies headache, dizziness, blurred vision, double vision. Patient denies any stomach discomfort. No nausea, vomiting. No hematochezia. No hematemesis. Denies any black stools or blood in his stools. Denies dysuria or hematuria. No muscle weakness or numbness. No chest pain or pressure. Reports syncope. PHYSICAL EXAMINATION: This is a 47-year-old male in no apparent distress at the time of my examination. HEENT: Head is atraumatic, normocephalic. Pupils are equal, round. Sclerae anicteric. Conjunctivae are clear. Mucous membranes of the mouth are moist. Neck is supple. There is no jugular venous distention. No carotid bruit is heard. CHEST EXAMINATION: Lungs are clear to auscultation. No chest wall tenderness is noted on palpation or with deep breathing. HEART EXAMINATION: Heart regular rate and rhythm. S1, S2 heard. No murmurs, ga llops or rub. ABDOMEN: Soft, nontender. Bowel sounds are heard. Obese. EXTREMITIES: 2+ peripheral pulses with no trace peripheral edema and no calf tenderness noted. NEUROLOGIC EXAMINATION: Patient is awake, alert and oriented x3. IMPRESSION AND PLAN: Syncope Hypertension Hyperlipidemia Diabetes type 2 CAD status post PCI OM1 Chronic bilateral lower extremity lymphedema PLAN: Acute coronary syndrome has been ruled out. Echo is stable. Blood pressure has not been well-controlled, therefore will increase lisinopril to 20 mg. Recommend monitoring blood pressure at home. No further cardiac workup indicated at this time. Patient is cleared for discharge from a cardiology standpoint. Follow-up in office in approximately 1 to 2 weeks. I am dictating on behalf of Dr. Robert Echeverria's history/physical and assessment/plan. Past Medical History Past Medical History: Diabetes Mellitus, Hypertension, Myocardial Infarction ([place]) Additional Past Medical History / Comment(s): staph-leg wound, prosthetic right eye, head injury 10 years ago, 2 cardiac stents, lymphedema Last Myocardial Infarction Date:: 2019 History of Any Multi-Drug Resistant Organisms: MRSA Date of last positivie culture/infection: may 2019 MDRO Source:: leg wound Past Surgical History: Heart Catheterization With Stent, Hernia Repair Additional Past Surgical History / Comment(s): right prostethic eye, head (8 or 9 surgeries post accident)-10 years ago, hernia repair with mesh Date of Last Stent Placement:: 2019 Past Psychological History: Anxiety Smoking Status: Current every day smoker Past Alcohol Use History: Occasional Additional Past Alcohol Use History / Comment(s): weekend drinker Past Drug Use History: Marijuana Additional Drug Use History / Comment(s): 1-2 times a week - Past Family History Mother Family Medical History: Diabetes Mellitus, Seizure Disorder Medications and Allergies Home Medications Medication Instructions Recorded Confirmed Type Acetaminophen Tab [Tylenol] 500 mg PO Q6HR PRN tab 04/27/23 07/22/23 Rx Aspirin 81 mg PO DAILY #30 tab 04/27/23 07/22/23 Rx Atorvastatin [Lipitor] 80 mg PO DAILY #30 tab 04/27/23 07/22/23 Rx Magnesium Oxide [Mag-Ox] 400 mg PO BID #60 tab 04/27/23 07/22/23 Rx Metoprolol Tartrate [Lopressor] 25 mg PO BID #60 tab 04/27/23 07/22/23 Rx amLODIPine [Norvasc] 10 mg PO DAILY #30 tab 04/27/23 07/22/23 Rx lisinopriL [Zestril] 10 mg PO DAILY #30 tab 04/27/23 07/22/23 Rx Furosemide [Lasix] 40 mg PO DAILY PRN 07/22/23 07/22/23 History Potassium Chloride [Klor-Con M20] 20 meq PO BID PRN 07/22/23 07/22/23 History metFORMIN HCL [Glucophage] 1,000 mg PO BID 07/22/23 07/22/23 History Allergies Allergy/AdvReac Type Severity Reaction Status Date / Time gabapentin [From Neurontin] Allergy Unknown Verified 07/22/23 07:15 Physical Exam Vitals: Vital Signs Temp Pulse Pulse Pulse Pulse Resp BP 07/23/23 08:00 90 16 07/23/23 07:00 98.5 F 90 16 07/23/23 02:46 99 109 H 95 101 H 18 07/23/23 01:59 98.3 F 89 19 07/22/23 20:00 98.1 F 99 109 H 95 101 H 18 07/22/23 15:51 98.3 F 99 109 H 95 18 156/90 BP BP BP Pulse Ox 07/23/23 08:00 07/23/23 07:00 147/92 97 07/23/23 02:46 07/23/23 01:59 146/76 99 07/22/23 20:00 188/91 95 07/22/23 15:51 143/94 156/85 Intake and Output 07/22/23 07/23/23 07/23/23 22:59 06:59 14:59 Intake Total 360 118 Balance 360 118 Intake: Oral 360 118 Other: Voiding Method Toilet Toilet Toilet # Voids 2 2 # Bowel Movements 1 Results 07/22/23 13:57 07/22/23 13:57 CBC 07/22/23 Range/Units 13:57 WBC 5.8 (3.8-10.6) k/uL RBC 4.15 L (4.30-5.90) m/uL Hgb 13.9 (13.0-17.5) gm/dL Hct 43.9 (39.0-53.0) % Plt Count 95 L (150-450) k/uL Comprehensive Metabolic Panel 07/22/23 Range/Units 13:57 Sodium 133 L (137-145) mmol/L Potassium 3.7 (3.5-5.1) mmol/L Chloride 97 L (98-107) mmol/L Carbon Dioxide 29 (22-30) mmol/L BUN 6 L (9-20) mg/dL Creatinine 0.82 (0.66-1.25) mg/dL Glucose 206 H (74-99) mg/dL Calcium 8.9 (8.4-10.2) mg/dL Current Medications Generic Name Dose Route Start Last Admin Trade Name Freq PRN Reason Stop Dose Admin Acetaminophen 650 mg 07/21/23 21:58 Acetaminophen Tab 325 Mg Tab PO Q6HR PRN Mild Pain or Fever > 100.5 Hydrocodone Bitart/Acetaminophen 1 each 07/22/23 12:30 07/23/23 05:40 Hydrocodone/Apap 7.5-325mg 1 Each Tab PO 1 each Q6HR PRN Administration Moderate Pain (Scale 4 to 6) Amlodipine Besylate 10 mg 07/22/23 18:00 07/23/23 08:16 Amlodipine 10 Mg Tab PO 10 mg DAILY COLBY Administration Aspirin 81 mg 07/23/23 09:00 07/23/23 08:16 Aspirin 81 Mg PO 81 mg DAILY COLBY Administration Atorvastatin Calcium 80 mg 07/23/23 09:00 07/23/23 08:16 Atorvastatin 80 Mg Tab PO 80 mg DAILY COLBY Administration Enoxaparin Sodium 40 mg 07/22/23 09:00 07/23/23 08:16 Enoxaparin 40 Mg/0.4 Ml Syringe SQ 40 mg DAILY COLBY Administration Furosemide 40 mg 07/22/23 17:47 Furosemide 40 Mg Tab PO DAILY PRN Edema Hydromorphone HCl 0.5 mg 07/22/23 12:31 Hydromorphone 0.5 Mg/0.5 Ml Syringe IVP Q3HR PRN Pain Scale 7 to 10 Insulin Aspart 0 unit 07/22/23 07:30 07/23/23 06:57 Insulin Aspart (Novolog) 100 Unit/Ml Vial SQ Not Given ACHS COLBY Protocol Lisinopril 10 mg 07/23/23 09:00 07/23/23 08:16 Lisinopril 10 Mg Tab PO 10 mg DAILY COLBY Administration Metoprolol Tartrate 25 mg 07/22/23 21:00 07/23/23 08:16 Metoprolol Tartrate 25 Mg Tab PO 25 mg BID COLBY Administration Naloxone HCl 0.2 mg 07/21/23 21:58 Naloxone 0.4 Mg/Ml 1 Ml Vial IV Q2M PRN Opioid Reversal Nicotine 1 patch 07/21/23 22:00 07/23/23 08:16 Nicotine 21mg/24hr Patch TRANSDERM 1 patch DAILY COLBY Administration Ondansetron HCl 4 mg 07/21/23 21:58 Ondansetron 4 Mg/2 Ml Vial IVP Q8HR PRN Nausea And Vomiting Potassium Chloride 20 meq 07/22/23 17:47 Potassium Chloride Er 20 Meq Tab.Er PO BID PRN TAKES LASIX Intake and Output 07/22/23 07/23/23 07/23/23 22:59 06:59 14:59 Intake Total 360 118 Balance 360 118 Intake: Oral 360 118 Other: Voiding Method Toilet Toilet Toilet # Voids 2 2 # Bowel Movements 1 07/22/23 13:57 07/22/23 13:57
--- NOTE | 2023-07-23 16:19 | P.DS ---
Providers Date of admission: 07/21/23 22:00 Expected date of discharge: 07/23/23 Attending physician: Antonella Morse MD Consults: 07/22/23 12:31 Consult Physician Routine Consulting Provider: Edward Dixon Consult Reason/Comments: syncope Do you want consulting provider notified?: Yes Primary care physician: Stated None Hospital Course: Discharge Diagnosis: Syncope Fall Back pain Atherosclerotic coronary artery disease with history of PCI Hypertension Dyslipidemia Diabetes mellitus type 2 Class 3 obesity with BMI 44.1 Hospital Course: Patient is a 47-year-old male with a history of coronary artery disease status post stenting, hypertension, dyslipidemia, and diabetes mellitus type 2 who presented to the emergency department with complaints of back pain. Patient had syncope 2 days prior and suffered a significant fall. On arrival to the emergency department he was noted to be hypertensive and tachycardic with a blood pressure of 179/101 and a heart rate of 105. Initial laboratory and the analysis in the emergency department was remarkable for platelet count of 106. KUB in the ER showed nonspecific bowel gas pattern with no acute process. Lumbar spine x-ray demonstrated multiple level degenerative changes with no evidence of loss of vertebral height. Chest x-ray demonstrated no acute cardiopulmonary process. CT head demonstrated no acute intracranial abnormality. Patient was placed in observation for further monitoring. Patient had no arrhythmias noted. Patient had an echocardiogram performed which did show continued ejection fraction of 55 to 60%. He was seen by cardiology who felt he was stable for discharge. Back pain improved and he was able to get up and ambulate. Patient discharged home in stable condition. Follow-up: Establish with a PCP. Dr. Pinon has been suggested, Dr. Echeverria in 1 to 2 weeks. Metformin has been refilled. Patient was given a 3 days supply of [employer] [place]. He was informed of no driving for 6 months. Patient seen and examined at bedside.No complaints. Doing well. No lightheadedness or dizziness, back pain much improved. Feels comfortable going home. Denies any chest pain. Vital signs reviewed and stable. General: Nontoxic, no distress, appears at stated age, obese Cardiovascular: S1S2 reg, no murmur, positive posterior tibial pulse bilateral, Lungs: CTA bilateral, no rhonchi, no rales, no accessory muscle use Abdominal: Soft, nontender to palpation, no guarding, no appreciable organomegaly Ext: No gross muscle atrophy, no edema b/l lower extremities, no contractures Neuro: CN II-XI grossly intact, no focal neuro deficits Psych: Alert, oriented, appropriate affect A total of 32 minutes of time were spent preparing this complex discharge summar y. Patient was discharged on 07/23/23. This dictation was prepared using [employer] voice recognition software. Though every attempt is made to correct errors during dictation some may still exist. Patient Condition at Discharge: Good Plan - Discharge Summary Discharge Rx Participant: Yes New Discharge Prescriptions: New HYDROcodone/APAP 7.5-325MG [[place] 7.5-325] 1 each PO Q6HR PRN #21 tab PRN Reason: Moderate Pain (Scale 4 To 6) metFORMIN HCL [Glucophage] 1,000 mg PO BID #60 tab Continue amLODIPine [Norvasc] 10 mg PO DAILY #30 tab lisinopriL [Zestril] 10 mg PO DAILY #30 tab Furosemide [Lasix] 40 mg PO DAILY PRN PRN Reason: Edema Aspirin 81 mg PO DAILY #30 tab Atorvastatin [Lipitor] 80 mg PO DAILY #30 tab Metoprolol Tartrate [Lopressor] 25 mg PO BID #60 tab Magnesium Oxide [Mag-Ox] 400 mg PO BID #60 tab Acetaminophen Tab [Tylenol] 500 mg PO Q6HR PRN tab PRN Reason: Pain Potassium Chloride [Klor-Con M20] 20 meq PO BID PRN PRN Reason: TAKES LASIX Discontinued metFORMIN HCL [Glucophage] 1,000 mg PO BID Discharge Medication List Acetaminophen Tab [Tylenol] 500 mg PO Q6HR PRN tab 04/27/23 [Rx] Aspirin 81 mg PO DAILY #30 tab 04/27/23 [Rx] Atorvastatin [Lipitor] 80 mg PO DAILY #30 tab 04/27/23 [Rx] Magnesium Oxide [Mag-Ox] 400 mg PO BID #60 tab 04/27/23 [Rx] Metoprolol Tartrate [Lopressor] 25 mg PO BID #60 tab 04/27/23 [Rx] amLODIPine [Norvasc] 10 mg PO DAILY #30 tab 04/27/23 [Rx] lisinopriL [Zestril] 10 mg PO DAILY #30 tab 04/27/23 [Rx] Furosemide [Lasix] 40 mg PO DAILY PRN 07/22/23 [History] Potassium Chloride [Klor-Con M20] 20 meq PO BID PRN 07/22/23 [History] HYDROcodone/APAP 7.5-325MG [[place] 7.5-325] 1 each PO Q6HR PRN #21 tab 07/23/23 [Rx] metFORMIN HCL [Glucophage] 1,000 mg PO BID #60 tab 07/23/23 [Rx] Follow up Appointment(s)/Referral(s): Robert Echeverria DO [STAFF PHYSICIAN] - 1 Week Jessica Pinon MD [REFERRING] - 1 Week (to establish for PCP) None,Stated [Primary Care Provider] - 1-2 days Activity/Diet/Wound Care/Special Instructions: Activity: As tolerated Diet: Heart Healthy, Consistent carb Special Instructions: Per [facility] Law: No driving for 6 months after incident of impaired consciousness Discharge Disposition: HOME SELF-CARE
[2023-07-23 16:38] VITALS: BP 142/72; PULSE 87; TEMP 98.6
[2023-07-24] MEDS ORDERED: lisinopriL 20 MG TAB PO SCH (09:00)
== END 2023-07-23 17:45 | disposition home or self-care (01) ==
LOC: EC 16:50 → 6NMEDSUR 22:00
PROVIDERS: ADMIT Internal Medicine; ATTEND Internal Medicine
DX: R55 Syncope and collapse (principal); M54.50 Low back pain, unspecified; I25.10 Atherosclerotic heart disease of native coronary artery without angina pectoris; I10 Essential (primary) hypertension; E78.5 Hyperlipidemia, unspecified; E11.9 Type 2 diabetes mellitus without complications; E66.9 Obesity, unspecified; Z68.41 Body mass index [BMI] 40.0-44.9, adult; W18.30XA Fall on same level, unspecified, initial encounter; Z79.84 Long term (current) use of oral hypoglycemic drugs; Z79.82 Long term (current) use of aspirin; Z79.899 Other long term (current) drug therapy; Z82.0 Family history of epilepsy and other diseases of the nervous system; Z83.3 Family history of diabetes mellitus; Z95.5 Presence of coronary angioplasty implant and graft; Z97.0 Presence of artificial eye
CPT/HCPCS: 96361; 96366; 96367; 96372 ×2; 96365; 99285; 36415; 93005; 82747; 80053; 80048; 82607; 84484 ×2; 85025; 85027; 85610; 85730; 72100; 71046; 74018; 70450; G0378 ×3; C8924; S4990 ×2; J1650 ×2; J2270; Q9957; J1170; 93308

== ENCOUNTER 2024-03-11 00:51 | Inpatient (IN) | payer OTHER ==
--- NOTE | 2024-03-11 02:22 | ED ---
General Adult HPI - General Source: patient Mode of arrival: wheelchair Limitations: no limitations <Vania Giron - Last Filed: 03/11/24 02:21> - General Source: patient, RN notes reviewed, old records reviewed <Denys Espana - Last Filed: 03/11/24 09:36> - General Stated complaint: Leg Issues Time Seen by Provider: 03/11/24 02:21 - History of Present Illness Initial comments: 48-year-old male presenting with chief complaint of increased pain and swelling to the lower extremities. Patient has lipedema, states that he has been having progressively worsening redness swelling and pain of the legs. He is now having a very large amount of weeping from the legs as well. No fever. (Vania Giron) Patient originally seen as a quick note. I evaluated patient when he was placed in a hallway bed after workup had been completed. He is a 48-year-old male with increased lower extremity pain, swelling as well as weeping wounds. Does have a history of chronic weeping wounds but states the weeping has been worse and discharge appears more purulent with surrounding erythema. He has a history of diabetes as well. Has a history of cellulitis on his legs. States he has been compliant with his Lasix which she has been using for his chronic lymphedema. Presents for further evaluation at this time. Denies chest pain or shortness of breath. Denies abdominal pain, nausea, vomiting. (Denys Espana) - Related Data Home Medications Medication Instructions Recorded Confirmed Furosemide [Lasix] 40 mg PO DAILY PRN 07/22/23 07/22/23 Potassium Chloride [Klor-Con M20] 20 meq PO BID PRN 07/22/23 07/22/23 Previous Rx's Medication Instructions Recorded Acetaminophen Tab [Tylenol] 500 mg PO Q6HR PRN tab 04/27/23 Aspirin 81 mg PO DAILY #30 tab 04/27/23 Atorvastatin [Lipitor] 80 mg PO DAILY #30 tab 04/27/23 Magnesium Oxide [Mag-Ox] 400 mg PO BID #60 tab 04/27/23 Metoprolol Tartrate [Lopressor] 25 mg PO BID #60 tab 04/27/23 amLODIPine [Norvasc] 10 mg PO DAILY #30 tab 04/27/23 lisinopriL [Zestril] 10 mg PO DAILY #30 tab 04/27/23 HYDROcodone/APAP 7.5-325MG [[place] 1 each PO Q6HR PRN #21 tab 07/23/23 7.5-325] metFORMIN HCL [Glucophage] 1,000 mg PO BID #60 tab 07/23/23 Allergies Allergy/AdvReac Type Severity Reaction Status Date / Time gabapentin [From Neurontin] Allergy Unknown Verified 07/22/23 07:15 pistachio nut Allergy Anaphylaxis Verified 03/11/24 02:22 Review of Systems ROS Other: All systems not noted in ROS Statement are negative. <Vania Giron - Last Filed: 03/11/24 02:21> ROS Other: All systems not noted in ROS Statement are negative. <Denys Espana - Last Filed: 03/11/24 09:36> ROS Statement: Those systems with pertinent positive or pertinent negative responses have been documented in the HPI. Review of Systems: CONST: Denies fever EYES: Denies blurry vision ENT: Denies nasal congestion C/V: Denies Chest pain RESP: Denies shortness of breath GI: Denies abdominal pain : Denies dysuria SKIN: Endorses leg wounds, cellulitis MSK: Endorses leg pain NEURO: Denies headache (Denys Espana) Past Medical History Past Medical History: Diabetes Mellitus, Hypertension, Myocardial Infarction ([place]) Additional Past Medical History / Comment(s): staph-leg wound, prosthetic right eye, head injury 10 years ago, 2 cardiac stents, lymphedema Last Myocardial Infarction Date:: 2019 History of Any Multi-Drug Resistant Organisms: MRSA Date of last positivie culture/infection: may 2019 MDRO Source:: leg wound Past Surgical History: Heart Catheterization With Stent, Hernia Repair Additional Past Surgical History / Comment(s): right prostethic eye, head (8 or 9 surgeries post accident)-10 years ago, hernia repair with mesh Date of Last Stent Placement:: 2019 Past Psychological History: Anxiety Smoking Status: Current every day smoker Past Alcohol Use History: Occasional Additional Past Alcohol Use History / Comment(s): weekend drinker Past Drug Use History: Marijuana Additional Drug Use History / Comment(s): 1-2 times a week - Past Family History Mother Family Medical History: Diabetes Mellitus, Seizure Disorder <Vania Giron - Last Filed: 03/11/24 02:21> General Exam <Vania Giron - Last Filed: 03/11/24 02:21> <Denys Espana - Last Filed: 03/11/24 09:36> - General Exam Comments Initial Comments: Visual Physical Exam Vital signs reviewed General: Well-appearing, nontoxic, no acute distress. Head: Normocephalic, atraumatic Eyes: PERRLA, EOMI ENT: Airway patent Chest: Nonlabored breathing Skin: No visual rash, normal skin tone Neuro: Alert and oriented 3 Musculoskeletal: No gross abnormalities (Vania Giron) General: Appears in moderate distress secondary to pain. HEAD: Normal with no signs of head trauma. EYES: EOMI ENT: Hearing grossly intact, normal oropharynx. RESPIRATORY: Clear breath sounds bilaterally. No wheezes, rales, or rhonchi. C/V: Regular rate and rhythm. S1 and S2 auscultated, no edema, peripheral pulses 2+ and intact throughout ABD: Abd is soft, nontender, nondistended EXT: Normal range of motion, no obvious deformity SKIN: Open, weeping leg wounds with purulent discharge bilaterally. Surrounding erythema present. Concern for cellulitis. NEURO: Alert and oriented x 4. (Denys Espana) Course Vital Signs 03/11/24 02:19 Temperature 99.1 F Pulse Rate 117 H Respiratory 20 Rate Blood Pressure 168/117 O2 Sat by Pulse 95 Oximetry Medical Decision Making <Vania Giron - Last Filed: 03/11/24 02:21> - Lab Data Result diagrams: 03/11/24 02:33 03/11/24 02:33 <Denys Espana - Last Filed: 03/11/24 09:36> - Medical Decision Making I performed the quick note portion of this visit, electronically signed Vania Giron PA-C (Vania Giron) Was pt. sent in by a medical professional or institution ([facility], [facility], urgent care, hospital, or shelter...) When possible be specific @ -No Did you speak to anyone other than the patient for history (EMS, parent, family, police, friend...)? What history was obtained from this source @ -No Did you review nursing and triage notes (agree or disagree)? Why? @ -I reviewed and agree with nursing and triage notes Were old charts reviewed (outside hosp., previous admission, EMS record, old EKG, old radiological studies, urgent care reports/EKG's, shelter records)? Report findings @ -Old charts reviewed confirming patient is a diabetic. Differential Diagnosis (chest pain, altered mental status, abdominal pain women, abdominal pain men, vaginal bleeding, weakness, fever, dyspnea, syncope, headache, dizziness, GI bleed, back pain, seizure, CVA, palpatations, mental health, musculoskeletal)? @ -Cellulitis, osteomyelitis, lymphedema. This list is not all inclusive. EKG interpreted by me (3pts min.). @ -None done X-rays interpreted by me (1pt min.). @ -No evidence of osteomyelitis. Patient has soft tissue swelling throughout the leg consistent with cellulitis. CT interpreted by me (1pt min.). @ -None done U/S interpreted by me (1pt. min.). @ -None done What testing was considered but not performed or refused? (CT, X-rays, U/S, labs)? Why? @ -None What meds were considered but not given or refused? Why? @ -None Did you discuss the management of the patient with other professionals (professionals i.e. DrMichelle, PA, [facility], lab, RT, psych nurse, social media developer, weight clerk, teacher, aerospace engineer officer armament, therapeutic case manager)? Give summary @ -Discussed with Dr. Campos of [facility] who accepted the admission. Was smoking cessation discussed for >3mins.? @ -No Was critical care preformed (if so, how long)? @ -No Were there social determinants of health that impacted care today? How? (Homelessness, low income, unemployed, alcoholism, drug addiction, transporta tion, low edu. Level, literacy, decrease access to med. care, fdc, rehab)? @ -No Was there de-escalation of care discussed even if they declined (Discuss DNR or withdrawal of care, Hospice)? DNR status @ -No What co-morbidities impacted this encounter? (DM, HTN, Smoking, COPD, CAD, Cancer, CVA, ARF, Chemo, Hep., AIDS, mental health diagnosis, sleep apnea, morbid obesity)? @ -None Was patient admitted / discharged? Hospital course, mention meds given and route, prescriptions, significant lab abnormalities, going to OR and other pertinent info. @ -Patient presents emergency department with what appears to be cellulitic changes on bilateral lower extremities. Patient does have purulent discharge as well. Workup was completed while patient was in triage and labs remarkable for slight elevation in CRP of 2.7. Remainder the workup unremarkable. I discussed results with the patient. He will be admitted to the hospital on IV antibiotics. We will obtain blood cultures as well as wound cultures and obtain x-ray of the legs. X-ray did not reveal osteomyelitis. Vitals are within acc eptable limits. He will be given analgesia medications. Infectious disease will be consulted. Patient was in agreement this plan. I spoke with the admitting provider, Dr. Campos of [facility] who accepted the admission. Undiagnosed new problem with uncertain prognosis? @ -No Drug Therapy requiring intensive monitoring for toxicity (Heparin, Nitro, Insulin, Cardizem)? @ -No Were any procedures done? @ -No Diagnosis/symptom? @ -Bilateral lower extremity cellulitis Acute, or Chronic, or Acute on Chronic? @ -Acute Uncomplicated (without systemic symptoms) or Complicated (systemic symptoms)? @ -Complicated Side effects of treatment? @ -No Exacerbation, Progression, or Severe Exacerbation? @ -No Poses a threat to life or bodily function? How? (Chest pain, USA, CT, pneumonia, PE, COPD, DKA, ARF, appy, cholecystitis, CVA, Diverticulitis, Homicidal, Suicidal, threat to staff... and all critical care pts) @ -Potentially, yes (Denys Espana) - Lab Data Lab Results 03/11/24 03/11/24 03/11/24 Range/Units 02:33 02:33 02:33 WBC 9.6 (3.8-10.6) k/uL RBC 4.51 (4.30-5.90) m/uL Hgb 14.8 (13.0-17.5) gm/dL Hct 45.1 (39.0-53.0) % MCV 100.0 (80.0-100.0) fL MCH 32.8 (25.0-35.0) pg MCHC 32.8 (31.0-37.0) g/dL RDW 14.2 (11.5-15.5) % Plt Count 148 L (150-450) k/uL MPV 8.5 Neutrophils % 76 % Lymphocytes % 15 % Monocytes % 5 % Eosinophils % 2 % Basophils % 0 % Neutrophils # 7.3 (1.3-7.7) k/uL Lymphocytes # 1.5 (1.0-4.8) k/uL Monocytes # 0.5 (0-1.0) k/uL Eosinophils # 0.2 (0-0.7) k/uL Basophils # 0.0 (0-0.2) k/uL Macrocytosis Slight Sodium 135 L (137-145) mmol/L Potassium 4.2 (3.5-5.1) mmol/L Chloride 95 L (98-107) mmol/L Carbon Dioxide 30 (22-30) mmol/L Anion Gap 10 mmol/L BUN 18 (9-20) mg/dL Creatinine 1.10 (0.66-1.25) mg/dL Est GFR (CKD-EPI)AfAm >90 (>60 ml/min/1.73 sqM) Est GFR (CKD-EPI)NonAf 80 (>60 ml/min/1.73 sqM) Glucose 228 H (74-99) mg/dL Lactic Ac Sepsis Rflx Plasma Lactic Acid Montez 2.1 H* (0.7-2.0) mmol/L Calcium 9.6 (8.4-10.2) mg/dL Total Bilirubin 0.8 (0.2-1.3) mg/dL AST 35 (17-59) U/L ALT 22 (4-49) U/L Alkaline Phosphatase 123 (38-126) U/L C-Reactive Protein 2.7 H (<1.0) mg/dL Total Protein 8.4 H (6.3-8.2) g/dL Albumin 4.3 (3.5-5.0) g/dL 03/11/24 Range/Units 03:16 WBC (3.8-10.6) k/uL RBC (4.30-5.90) m/uL Hgb (13.0-17.5) gm/dL Hct (39.0-53.0) % MCV (80.0-100.0) fL MCH (25.0-35.0) pg MCHC (31.0-37.0) g/dL RDW (11.5-15.5) % Plt Count (150-450) k/uL MPV Neutrophils % % Lymphocytes % % Monocytes % % Eosinophils % % Basophils % % Neutrophils # (1.3-7.7) k/uL Lymphocytes # (1.0-4.8) k/uL Monocytes # (0-1.0) k/uL Eosinophils # (0-0.7) k/uL Basophils # (0-0.2) k/uL Macrocytosis Sodium (137-145) mmol/L Potassium (3.5-5.1) mmol/L Chloride (98-107) mmol/L Carbon Dioxide (22-30) mmol/L Anion Gap mmol/L BUN (9-20) mg/dL Creatinine (0.66-1.25) mg/dL Est GFR (CKD-EPI)AfAm (>60 ml/min/1.73 sqM) Est GFR (CKD-EPI)NonAf (>60 ml/min/1.73 sqM) Glucose (74-99) mg/dL Lactic Ac Sepsis Rflx Y Plasma Lactic Acid Montez (0.7-2.0) mmol/L Calcium (8.4-10.2) mg/dL Total Bilirubin (0.2-1.3) mg/dL AST (17-59) U/L ALT (4-49) U/L Alkaline Phosphatase (38-126) U/L C-Reactive Protein (<1.0) mg/dL Total Protein (6.3-8.2) g/dL Albumin (3.5-5.0) g/dL Disposition <Vania Giron - Last Filed: 03/11/24 02:21> Time of Disposition: 09:30 <Denys Espana - Last Filed: 03/11/24 09:36> Clinical Impression: Cellulitis Disposition: ADMITTED IP TO THIS [facility] Condition: Stable Referrals: None,Stated [Primary Care Provider] - 1-2 days
[2024-03-11] MEDS: KETOROLAC 15 MG/ML 1 ML VIAL IM STA (02:43)
[2024-03-11 02:56] LABS: Basophils % (A) 0 %; Eosinophils # (A) 0.2 k/uL (0-0.7); Eosinophils % (A) 2 %; HCT 45.1 % (39.0-53.0); HGB 14.8 gm/dL (13.0-17.5); Lymphocytes # (A) 1.5 k/uL (1.0-4.8); Lymphocytes % (A) 15 %; MCH 32.8 pg (25.0-35.0); MCHC 32.8 g/dL (31.0-37.0); Macrocytosis Slight; Mean Platelet Volume 8.5; Monocytes # (A) 0.5 k/uL (0-1.0); Monocytes % (A) 5 %; Neutrophils # (A) 7.3 k/uL (1.3-7.7); Neutrophils % (A) 76 %; Platelet Count 148 k/uL (150-450); RBC 4.51 m/uL (4.30-5.90); RDW 14.2 % (11.5-15.5); WBC 9.6 k/uL (3.8-10.6)
[2024-03-11 02:59] LABS: ALT 22 U/L (4-49); AST 35 U/L (17-59); African American GFR (CKD) >90 (>60 ml/min/1.73 sqM); Albumin 4.3 g/dL (3.5-5.0); Alkaline Phosphatase 123 U/L (38-126); Anion Gap 10 mmol/L; Blood Urea Nitrogen 18 mg/dL (9-20); C Reactive Protein 2.7 mg/dL (<1.0); Calcium 9.6 mg/dL (8.4-10.2); Carbon Dioxide 30 mmol/L (22-30); Chloride 95 mmol/L (98-107); Glucose 228 mg/dL (74-99); Non-African American GFR(CKD) 80 (>60 ml/min/1.73 sqM); Potassium 4.2 mmol/L (3.5-5.1); Sodium 135 mmol/L (137-145); Total Bilirubin 0.8 mg/dL (0.2-1.3); Total Protein 8.4 g/dL (6.3-8.2)
[2024-03-11] MEDS ORDERED: VANCOMYCIN IV PER PHARMACY 1 EACH MISC MISCELLANE PRN (08:46)
[2024-03-11] MEDS ORDERED: NALOXONE 0.4 MG/ML 1 ML VIAL IV PRN (09:20)
--- NOTE | 2024-03-11 09:31 | XR ---
EXAMINATION TYPE: XR tibia fibula bilateral DATE OF EXAM: 03/11/2024 9:18 AM COMPARISON: None CLINICAL INDICATION: Male, 48 years old with history of open leg wounds. eval for osteomyelitis; PHH, pain TECHNIQUE: XR tibia fibula bilateral; examined in AP and lateral projections. FINDINGS: No evidence of any acute osseous pathology, joint dislocation, or soft tissue swelling is n oted. Soft tissue edema throughout the leg without evidence for osseous erosion or subcutaneous lucen cy to suggest gas. IMPRESSION: 1. No evidence of acute fracture. 2. Soft tissue swelling throughout the leg without evidence for osseous erosion or subcutaneous luce ncy to suggest gas. [facility], , 03/11/2024 9:29 AM
[2024-03-11] MEDS: HYDROmorphone 0.5 MG/0.5 ML SYRINGE IVP STA (09:51)
[2024-03-11] MEDS: DIPH,PERTUS(ACELL)TETVAC-LF 0.5 ML VIAL IM ONE (09:52)
[2024-03-11] MEDS: VANCOMYCIN 2,500 MG in SODIUM CHLORIDE 0.9% 500 ML 500 ML IVPB STA (09:53)
[2024-03-11] MEDS ORDERED: DEXTROSE 50% SYRINGE 50 ML IVP PRN ×2 (09:55)
--- NOTE | 2024-03-11 09:58 | P.HPIM ---
History of Present Illness H&P Date: 03/11/24 History of present illness: 48-year-old male patient with past medical history significant for lymphedema, diabetes mellitus, history of coronary artery disease and stent of OM1 who presented to ER with a complaint of increased pain and swelling of the lower extremities. Patient reported that he was having progressively worsening redness swelling and pain of the lower extremities along with large amount of weeping from the legs more pronounced on the left lower extremity than right. Patient denied any fever or chills. Patient reported a history of lower extremity cellulitis in the past. Patient denied any headache, sore throat, productive cough, chest pain, palpitations, nausea vomiting diarrhea constipation abdominal pain dysuria urgency frequency weakness or numbness of the extremities. In the ED patient temperature 99.1, heart rate 117, respiratory rate 20, blood pressure 168/117, saturating 95% on room air. WBC 9.6, hemoglobin 14.8, platelets 148. Lactic acid was 2.1. Sodium 135, potassium 4.2, CO2 30, BUN 18, creatinine 1.10. CRP 2.7. Bilateral x-ray tibia-fibula was negative for any acute process, showed soft tissue swelling throughout the leg without evidence of osseous erosion or subcutaneous lucency to suggest gas. REVIEW OF SYSTEMS: CONSTITUTIONAL: No fever, no malaise, no fatigue. HEENT: No recent visual problems or hearing problems. Denied any sore throat. CARDIOVASCULAR: No chest pain, orthopnea, PND, no palpitations, no syncope. PULMONARY: No shortness of breath, no cough, no hemoptysis. GASTROINTESTINAL: No diarrhea, no nausea, no vomiting, no abdominal pain. NEUROLOGICAL: No headaches, no weakness, no numbness. HEMATOLOGICAL: Denies any bleeding or petechiae. GENITOURINARY: Denies any burning micturition, frequency, or urgency. MUSCULOSKELETAL/RHEUMATOLOGICAL: Denies any joint pain, swelling, or any muscle pain. ENDOCRINE: Denies any polyuria or polydipsia. The rest of the 14-point review of systems is negative. PHYSICAL EXAMINATION: GENERAL: The patient is A&O x3, NAD HEENT: EOMI, Sclerae anicteric, Moist Mucous membranes Neck: Supple, Non tender, No JVD PULMONARY: Equal breath souds B/L, No wheezing, No crackles. CARDIOVASCULAR: S1, S2 present. No murmurs, rubs, or gallops. ABDOMEN: Soft, nontender, nondistended, normoactive bowel sounds. No guarding or rebound tenderness. MUSCULOSKELETAL: ++edema, bilateral lower extremity erythema, tenderness, weeping. No cyanosis. No clubbing. Normal ROM. Intact peripheral pulses. NEUROLOGICAL: CN 2-12 grossly intact. No FND Assessment and plan: Bilateral lower extremity cellulitis: History of lymphedema History of coronary artery disease/PCI of OM1 Diabetes mellitus Hypertension Hyperlipidemia Plan Continue vancomycin and Rocephin Pain control Infectious disease consult Resume home Lasix Resume home medications Accu-Cheks, diabetic diet, sliding scale insulin. DVT prophylaxis Subcutaneous heparin Monitor vital signs and labs Labs and medication were reviewed. Continue same treatment. Further recommendations as per clinical course of the patient Dictation was produced using [employer] dictation software. please excuse any grammatical, word or spelling errors. Past Medical History Past Medical History: Diabetes Mellitus, Hypertension, Myocardial Infarction ([place]) Additional Past Medical History / Comment(s): staph-leg wound, prosthetic right eye, head injury 10 years ago, 2 cardiac stents, lymphedema Last Myocardial Infarction Date:: 2019 History of Any Multi-Drug Resistant Organisms: MRSA Date of last positivie culture/infection: may 2019 MDRO Source:: leg wound Past Surgical History: Heart Catheterization With Stent, Hernia Repair Additional Past Surgical History / Comment(s): right prostethic eye, head (8 or 9 surgeries post accident)-10 years ago, hernia repair with mesh Date of Last Stent Placement:: 2019 Past Psychological History: Anxiety Smoking Status: Current every day smoker Past Alcohol Use History: Occasional Additional Past Alcohol Use History / Comment(s): weekend drinker Past Drug Use History: Marijuana Additional Drug Use History / Comment(s): 1-2 times a week - Past Family History Mother Family Medical History: Diabetes Mellitus, Seizure Disorder Medications and Allergies Home Medications Medication Instructions Recorded Confirmed Type amLODIPine [Norvasc] 10 mg PO DAILY #30 tab 04/27/23 03/11/24 Rx Furosemide [Lasix] 40 mg PO DAILY 07/22/23 03/11/24 History metFORMIN HCL [Glucophage] 1,000 mg PO DAILY 03/11/24 03/11/24 History Allergies Allergy/AdvReac Type Severity Reaction Status Date / Time gabapentin [From Neurontin] Allergy Unknown Verified 12/29/24 09:37 pistachio nut Allergy Anaphylaxis Verified 03/11/24 09:37 Physical Exam Vitals: Vital Signs Temp Pulse Resp BP Pulse Ox 03/11/24 02:19 99.1 F 117 H 20 168/117 95 Intake and Output 03/10/24 03/11/24 03/11/24 22:59 06:59 14:59 Other: Weight 176.901 kg Results CBC & Chem 7: 03/11/24 02:33 03/11/24 02:33 Labs: Abnormal Lab Results - Last 24 Hours (Table) 03/11/24 03/11/24 03/11/24 Range/Units 02:33 02:33 02:33 Plt Count 148 L (150-450) k/uL Sodium 135 L (137-145) mmol/L Chloride 95 L (98-107) mmol/L Glucose 228 H (74-99) mg/dL Plasma Lactic Acid [place]z 2.1 H* (0.7-2.0) mmol/L C-Reactive Protein 2.7 H (<1.0) mg/dL Total Protein 8.4 H (6.3-8.2) g/dL
[2024-03-11] MEDS: metFORMIN 500 MG TAB PO SCH (10:56)
[2024-03-11] MEDS: amLODIPine 10 MG TAB PO SCH (10:57)
[2024-03-11] MEDS: FUROSEMIDE 40 MG TAB PO SCH (10:57)
[2024-03-11 12:57] LABS: Glucose,Whole Blood 229 mg/dL (70-110)
[2024-03-11] MEDS: INSULIN ASPART (NovoLOG) 100 UNIT/ML VIAL SQ SCH (13:06)
[2024-03-11] MEDS: MORPHINE SULFATE 4 MG/ML SYRINGE IV PRN (14:30)
[2024-03-11] MEDS: HEPARIN SODIUM,PORCINE 5,000 UNIT/ML 1 ML VIAL SQ SCH (16:24)
[2024-03-11] MEDS ORDERED: ACETAMINOPHEN TAB 500 MG TAB PO PRN (16:58)
[2024-03-11 17:11] LABS: Glucose,Whole Blood 159 mg/dL (70-110)
[2024-03-11] MEDS: ASPIRIN 81 MG PO SCH (18:16)
[2024-03-11] MEDS: VANCOMYCIN 2,500 MG in SODIUM CHLORIDE 0.9% 500 ML 500 ML IVPB SCH (22:22)
[2024-03-12 06:17] LABS: Glucose,Whole Blood 165 mg/dL (70-110)
--- NOTE | 2024-03-12 07:21 | P.CONS ---
History of Present Illness - Reason for Consult Consult date: 03/11/24 Bilateral lower extremity cellulitis Requesting physician: Denys Espana - Chief Complaint Increasing swelling redness and pain to bilateral legs x days - History of Present Illness Patient is a 48-year-old male with a past medical history significant for diabetes mellitus hypertension [place] patient did have history of chronic bilateral lower extremity swelling venous stasis ulcer and history of cellulitis patient apparently has been dealing with increasing swelling to bilateral lower extremity as well as ulceration over the last 1 month with the patient has been trying to take care of at home with the dressing and taking his diuretic however the patient now presenting to the hospital with worsening swelling to bilateral lower extremity as well as ulceration patient complaining of pain to the legs describing it to be throbbing, more to the left leg than the right leg, most 10 out of 10 on the left side and 8 out of 10 on the right side patient did have some drainage she has been mostly clear on presentation to the hospital patient did have low-grade fever of 99.1 F patient was tachycardic but not hypotensive or hypoxic no need for supplemental oxygen he did have lactic acid of 2.4 white count of 9.6 creat is 1.10 liver enzymes has been normal local culture obtained he did have x-rays of the tibia and fibula that was negative for any bony a bnormality he was started on Rocephin and vancomycin infectious disease was consulted for further management of antibiotic therapy Review of Systems Positive point and negatives has been mentioned in the HPI, complete review of systems was performed and all other systems are negative Past Medical History Past Medical History: Diabetes Mellitus, Hypertension, Myocardial Infarction ([place]) Additional Past Medical History / Comment(s): staph-leg wound, prosthetic right eye, head injury 10 years ago, 2 cardiac stents, lymphedema Last Myocardial Infarction Date:: 2019 History of Any Multi-Drug Resistant Organisms: MRSA Year Discovered:: may 2019 MDRO Source:: leg wound Past Surgical History: Heart Catheterization With Stent, Hernia Repair Additional Past Surgical History / Comment(s): right prostethic eye, head (8 or 9 surgeries post accident)-10 years ago, hernia repair with mesh Date of Last Stent Placement:: 2019 Past Psychological History: Anxiety Smoking Status: Current every day smoker Past Alcohol Use History: Occasional Additional Past Alcohol Use History / Comment(s): weekend drinker Past Drug Use History: Marijuana Additional Drug Use History / Comment(s): 1-2 times a week - Past Family History Mother Family Medical History: Diabetes Mellitus, Seizure Disorder Medications and Allergies Home Medications Medication Instructions Recorded Confirmed Type amLODIPine [Norvasc] 10 mg PO DAILY #30 tab 04/27/23 03/11/24 Rx Furosemide [Lasix] 40 mg PO DAILY 07/22/23 03/11/24 History metFORMIN HCL [Glucophage] 1,000 mg PO DAILY 03/11/24 03/11/24 History Allergies Allergy/AdvReac Type Severity Reaction Status Date / Time gabapentin [From Neurontin] Allergy Unknown Verified 03/11/24 09:37 pistachio nut Allergy Anaphylaxis Verified 03/11/24 09:37 Physical Exam Vitals: Vital Signs Temp Pulse Resp BP Pulse Ox 03/11/24 02:19 99.1 F 117 H 20 168/117 95 Intake and Output 03/10/24 03/11/24 03/11/24 22:59 06:59 14:59 Other: Weight 176.901 kg GENERAL DESCRIPTION: Middle-aged male lying in bed, no distress. No tachypnea or accessory muscle of respiration use. HEENT: Shows Pallor , no scleral icterus. Oral mucous membrane is dry. No pharyngeal erythema or thrush NECK: Trachea central, no thyromegaly. LUNGS: Unlabored breathing. Decreased breath sound at the base HEART: S1, S2, regular rate and rhythm. No loud murmur ABDOMEN: Soft, no tenderness , EXTREMITIES: Diffuse swelling of bilateral extremity with some redness superficial ulceration and drainage SKIN: No rash, no masses palpable. NEUROLOGICAL: The patient is awake, alert, oriented x3, mood and affect normal. Results CBC & Chem 7: 03/11/24 02:33 03/11/24 02:33 Labs: Abnormal Lab Results - Last 24 Hours (Table) 03/11/24 03/11/24 03/11/24 Range/Units 02:33 02:33 02:33 Plt Count 148 L (150-450) k/uL Sodium 135 L (137-145) mmol/L Chloride 95 L (98-107) mmol/L Glucose 228 H (74-99) mg/dL Plasma Lactic Acid [place] 2.1 H* (0.7-2.0) mmol/L C-Reactive Protein 2.7 H (<1.0) mg/dL Total Protein 8.4 H (6.3-8.2) g/dL Assessment and Plan (1) Bilateral leg ulcer Current Visit: Yes Status: Acute Code(s): L97.919 - NON-PRS CHRONIC ULC UNSP PRT OF R LOW LEG W UNSP SEVERITY; L97.929 - NON-PRS CHRONIC ULC UNSP PRT OF L LOW LEG W UNSP SEVERITY SNOMED Code(s): 99855810 (2) Bilateral lower leg cellulitis Current Visit: No Status: Acute Code(s): L03.116 - CELLULITIS OF LEFT LOWER LIMB; L03.115 - CELLULITIS OF RIGHT LOWER LIMB SNOMED Code(s): 385872773 Plan: 1patient presented to hospital with increasing swelling. Patient pain to bilateral lower extremity this patient did have diffuse swelling redness and complaint of venous stasis ulcer now with admission to the hospital with cellulitis likely from gram-positive hank, gram-negative Infection less likely but not entirely excluded 2local culture obtained that will guide further antibiotic therapy 3local wound care with dry Aquacel dressing followed by Farooq wrap for compr ession 4vancomycin pharmacy to dose and Rocephin while provide empiric antibiotic coverage evaluating for the culture to finalize We will follow on clinical condition and cultures to further adjust medication if needed Thank you for this consultation we will follow the patient along with you Dictation was produced using [email or web address] dictation software. please excuse any grammatical, word or spelling errors. Time with Patient: Greater than 30
[2024-03-12 10:25] LABS: Basophils # (A) 0.05 X 10*3/uL (0.00-0.10); Basophils % (A) 0.7 %; Eosinophils # (A) 0.23 X 10*3/uL (0.04-0.35); Eosinophils % (A) 3.1 %; HCT 44.4 % (39.6-50.0); HGB 13.9 g/dL (13.0-17.0); Lymphocytes # (A) 1.18 X 10*3/uL (0.90-5.00); Lymphocytes % (A) 15.8 %; MCH 31.7 pg (27.0-32.0); MCHC 31.3 g/dL (32.0-37.0); MCV 101.4 FL (80.0-97.0); Mean Platelet Volume 10.6 FL (9.5-12.2); Monocytes # (A) 0.52 X 10*3/uL (0.20-1.00); NRBC Per 100 WBC 0 X 10*3/uL (0.00-0.01); Neutrophils # (A) 5.43 X 10*3/uL (1.80-7.70); Neutrophils % (A) 72.6 %; Platelet Count 121 X 10*3/uL (140-440); RBC 4.38 X 10*6/uL (4.40-5.60); RDW 14.6 % (11.5-14.5); WBC 7.47 X 10*3/uL (4.50-10.00)
[2024-03-12 10:38] LABS: ALT 19 U/L (10-49); AST 31 U/L (14-35); Albumin 3.5 g/dL (3.8-4.9); Albumin/Globulin Ratio 0.95 Ratio (1.60-3.17); Alkaline Phosphatase 111 U/L (41-126); BUN/Creat Ratio 10.45 Ratio (12.00-20.00); Blood Urea Nitrogen 11.5 mg/dL (9.0-27.0); Calcium 9.1 mg/dL (8.7-10.3); Carbon Dioxide 32.2 mmol/L (21.6-31.8); Chloride 95 mmol/L (96-109); Globulin 3.7 g/dL (1.6-3.3); Glucose 196 mg/dL (70-110); Potassium 4.3 mmol/L (3.5-5.5); Sodium 136 mmol/L (135-145); Total Bilirubin 0.8 mg/dL (0.3-1.2); Total Protein 7.2 g/dL (6.2-8.2)
[2024-03-12] MEDS: NICOTINE 14MG/24HR PATCH TRANSDERM SCH (11:15)
[2024-03-12 11:29] LABS: Glucose,Whole Blood 212 mg/dL (70-110)
[2024-03-12] MEDS: HYDROcodone/APAP 5-325MG 1 EACH TAB PO PRN (13:46)
--- NOTE | 2024-03-12 14:13 | P.PN ---
Subjective Interval History: 48-year-old male patient with past medical history significant for lymphedema, diabetes mellitus, history of coronary artery disease and stent of OM1 who presented to ER with a complaint of increased pain and swelling of the lower extremities. Patient reported that he was having progressively worsening redness swelling and pain of the lower extremities along with large amount of weeping from the legs more pronounced on the left lower extremity than right. Patient denied any fever or chills. Patient reported a history of lower extremity cellulitis in the past. Patient denied any headache, sore throat, productive cough, chest pain, palpitations, nausea vomiting diarrhea constipation abdominal pain dysuria urgency frequency weakness or numbness of the extremities. In the ED patient temperature 99.1, heart rate 117, respiratory rate 20, blood pressure 168/117, saturating 95% on room air. WBC 9.6, hemoglobin 14.8, platelets 148. Lactic acid was 2.1. Sodium 135, potassium 4.2, CO2 30, BUN 18, creatinine 1.10. CRP 2.7. Bilateral x-ray tibia-fibula was negative for any acute process, showed soft tissue swelling throughout the leg without evidence of osseous erosion or subcutaneous lucency to suggest gas. 03/12patient was seen and examined today. Vital stable, patient tachycardic, blood pressure elevated. WBCs 7.4, hemoglobin 13.9, platelets 121. BMP showed BUN 11.5, creatinine 1.1. Blood glucose 212. LFTs unremarkable. Added hydralazine, continue Norvasc. Continue Rocephin and vancomycin. Infectious disease following. Wound culture growing Staph aureus. Assessment and plan: Bilateral lower extremity cellulitis: History of lymphedema History of coronary artery disease/PCI of OM1 Diabetes mellitus Hypertension Hyperlipidemia Plan Continue vancomycin and Rocephin Pain control Infectious disease consult Resume home Lasix Resume home medications Accu-Cheks, diabetic diet, sliding scale insulin. DVT prophylaxis Subcutaneous heparin Monitor vital signs and labs Labs and medication were reviewed. Continue same treatment. Further recommendations as per clinical course of the patient PHYSICAL EXAMINATION: GENERAL: The patient is A&O x3, NAD HEENT: EOMI, Sclerae anicteric, Moist Mucous membranes Neck: Supple, Non tender, No JVD PULMONARY: Equal breath souds B/L, No wheezing, No crackles. CARDIOVASCULAR: S1, S2 present. No murmurs, rubs, or gallops. ABDOMEN: Soft, nontender, nondistended, normoactive bowel sounds. No guarding or rebound tenderness. MUSCULOSKELETAL: ++edema, bilateral lower extremity erythema, tenderness, weeping. No cyanosis. No clubbing. Normal ROM. Intact peripheral pulses. NEUROLOGICAL: CN 2-12 grossly intact. No FND REVIEW OF SYSTEMS: CONSTITUTIONAL: No fever or chills. CARDIOVASCULAR: No chest pain, palpitations or syncope. PULMONARY: No shortness of breath, no cough, sore throat. GASTROINTESTINAL: No nausea, vomiting, diarrhea, abdominal pain. : No Dysuria, urgency, frequency. Extremities: No edema. NEUROLOGICAL: No headaches, no weakness, or numbness Dictation was produced using [employer] dictation software. please excuse any grammatical, word or spelling errors. Objective - Vital Signs Vital signs: Vital Signs Temp 98.2 F 03/12/24 13:34 Pulse 101 H 03/12/24 13:34 Resp 20 03/12/24 13:34 BP 178/74 03/12/24 13:34 Pulse Ox 95 03/12/24 13:34 FiO2 Intake & Output 03/11/24 03/12/24 03/12/24 18:59 06:59 18:59 Intake Total 790 1050 Balance 790 1050 Intake: Intake, IV Titration 550 500 Amount Vancomycin 2,500 mg In 500 500 Sodium Chloride 0.9% 500 ml 500 ml @ 167 mls/hr IVPB Q12H [facility] Rx#: [id number] cefTRIAXone 2 gm In 50 Sodium Chloride 0.9% 50 ml @ 100 mls/hr IVPB Q24HR [facility] Rx#:[id number] Oral 240 550 Other: # Voids 4 # Bowel Movements 1 - Labs CBC & Chem 7: 03/12/24 06:37 03/12/24 06:37 Labs: Abnormal Lab Results - Last 24 Hours (Table) 03/11/24 03/12/24 03/12/24 Range/Units 17:08 06:16 06:37 RBC (4.40-5.60) X 10*6/uL MCV (80.0-97.0) FL MCHC (32.0-37.0) g/dL RDW (11.5-14.5) % Plt Count (140-440) X 10*3/uL Immature Gran # (0.00-0.04) X 10*3/uL Chloride (96-109) mmol/L Carbon Dioxide (21.6-31.8) mmol/L BUN/Creatinine Ratio (12.00-20.00) Ratio Glucose (70-110) mg/dL POC Glucose (mg/dL) 159 H 165 H (70-110) mg/dL Hemoglobin A1c 8.0 H (<=6.0) % Albumin (3.8-4.9) g/dL Globulin (1.6-3.3) g/dL Albumin/Globulin Ratio (1.60-3.17) Ratio 03/12/24 03/12/24 03/12/24 Range/Units 06:37 06:37 11:27 RBC 4.38 L (4.40-5.60) X 10*6/uL MCV 101.4 H (80.0-97.0) FL MCHC 31.3 L (32.0-37.0) g/dL RDW 14.6 H (11.5-14.5) % Plt Count 121 L (140-440) X 10*3/uL Immature Gran # 0.06 H (0.00-0.04) X 10*3/uL Chloride 95 L (96-109) mmol/L Carbon Dioxide 32.2 H (21.6-31.8) mmol/L BUN/Creatinine Ratio 10.45 L (12.00-20.00) Ratio Glucose 196 H (70-110) mg/dL POC Glucose (mg/dL) 212 H (70-110) mg/dL Hemoglobin A1c (<=6.0) % Albumin 3.5 L (3.8-4.9) g/dL Globulin 3.7 H (1.6-3.3) g/dL Albumin/Globulin Ratio 0.95 L (1.60-3.17) Ratio Microbiology - Last 24 Hours (Table) 03/11/24 09:45 Gram Stain - Final Leg - Right Wound Culture - Final Presumptive Staph aureus
[2024-03-12] MEDS: hydrALAZINE HCL 50 MG TAB PO SCH (15:07)
[2024-03-12 16:27] LABS: Glucose,Whole Blood 195 mg/dL (70-110)
[2024-03-12 20:08] LABS: Glucose,Whole Blood 171 mg/dL (70-110)
[2024-03-13 04:49] LABS: Basophils % (A) 1 %; Eosinophils # (A) 0.3 k/uL (0-0.7); Eosinophils % (A) 3 %; HCT 45.3 % (39.0-53.0); HGB 14.7 gm/dL (13.0-17.5); Lymphocytes % (A) 12 %; MCH 32.8 pg (25.0-35.0); MCHC 32.5 g/dL (31.0-37.0); MCV 100.7 fL (80.0-100.0); Macrocytosis Slight; Mean Platelet Volume 8.5; Monocytes # (A) 0.4 k/uL (0-1.0); Monocytes % (A) 5 %; Neutrophils # (A) 6.2 k/uL (1.3-7.7); Neutrophils % (A) 78 %; Platelet Count 131 k/uL (150-450); RDW 14.1 % (11.5-15.5)
[2024-03-13 05:38] LABS: African American GFR (CKD) >90 (>60 ml/min/1.73 sqM); Anion Gap 7 mmol/L; Blood Urea Nitrogen 12 mg/dL (9-20); Calcium 9.6 mg/dL (8.4-10.2); Carbon Dioxide 31 mmol/L (22-30); Chloride 96 mmol/L (98-107); Glucose 159 mg/dL (74-99); Non-African American GFR(CKD) >90 (>60 ml/min/1.73 sqM); Sodium 134 mmol/L (137-145)
[2024-03-13 06:19] LABS: Glucose,Whole Blood 150 mg/dL (70-110)
[2024-03-13 11:33] LABS: Glucose,Whole Blood 207 mg/dL (70-110)
[2024-03-13 16:42] LABS: Glucose,Whole Blood 148 mg/dL (70-110)
--- NOTE | 2024-03-13 17:13 | P.PN ---
Subjective Interval History: 48-year-old male patient with past medical history significant for lymphedema, diabetes mellitus, history of coronary artery disease and stent of OM1 who presented to ER with a complaint of increased pain and swelling of the lower extremities. Patient reported that he was having progressively worsening redness swelling and pain of the lower extremities along with large amount of weeping from the legs more pronounced on the left lower extremity than right. Patient denied any fever or chills. Patient reported a history of lower extremity cellulitis in the past. Patient denied any headache, sore throat, productive cough, chest pain, palpitations, nausea vomiting diarrhea constipation abdominal pain dysuria urgency frequency weakness or numbness of the extremities. In the ED patient temperature 99.1, heart rate 117, respiratory rate 20, blood pressure 168/117, saturating 95% on room air. WBC 9.6, hemoglobin 14.8, platelets 148. Lactic acid was 2.1. Sodium 135, potassium 4.2, CO2 30, BUN 18, creatinine 1.10. CRP 2.7. Bilateral x-ray tibia-fibula was negative for any acute process, showed soft tissue swelling throughout the leg without evidence of osseous erosion or subcutaneous lucency to suggest gas. 03/12patient was seen and examined today. Vital stable, patient tachycardic, blood pressure elevated. WBCs 7.4, hemoglobin 13.9, platelets 121. BMP showed BUN 11.5, creatinine 1.1. Blood glucose 212. LFTs unremarkable. Added hydralazine, continue Norvasc. Continue Rocephin and vancomycin. Infectious disease following. Wound culture growing Staph aureus. 03/13--patient was seen and examined today. Vital stable. CBC and BMP stable. Wound culture growing MRSA. Patient currently on vancomycin. Infectious disease following. Assessment and plan: Bilateral lower extremity cellulitis: History of lymphedema History of coronary artery disease/PCI of OM1 Diabetes mellitus Hypertension Hyperlipidemia Plan Continue vancomycin, Rocephin discontinued. Pain control Infectious disease consult Resume home Lasix Resume home medications Accu-Cheks, diabetic diet, sliding scale insulin. DVT prophylaxis Subcutaneous heparin Monitor vital signs and labs Labs and medication were reviewed. Continue same treatment. Further recommendations as per clinical course of the patient PHYSICAL EXAMINATION: GENERAL: The patient is A&O x3, NAD HEENT: EOMI, Sclerae anicteric, Moist Mucous membranes Neck: Supple, Non tender, No JVD PULMONARY: Equal breath souds B/L, No wheezing, No crackles. CARDIOVASCULAR: S1, S2 present. No murmurs, rubs, or gallops. ABDOMEN: Soft, nontender, nondistended, normoactive bowel sounds. No guarding or rebound tenderness. MUSCULOSKELETAL: ++edema, bilateral lower extremity erythema, tenderness, weeping. No cyanosis. No clubbing. Normal ROM. Intact peripheral pulses. NEUROLOGICAL: CN 2-12 grossly intact. No FND REVIEW OF SYSTEMS: CONSTITUTIONAL: No fever or chills. CARDIOVASCULAR: No chest pain, palpitations or syncope. PULMONARY: No shortness of breath, no cough, sore throat. GASTROINTESTINAL: No nausea, vomiting, diarrhea, abdominal pain. : No Dysuria, urgency, frequency. Extremities: No edema. NEUROLOGICAL: No headaches, no weakness, or numbness Dictation was produced using [employer] dictation software. please excuse any grammatical, word or spelling errors. Objective - Vital Signs Vital signs: Vital Signs Temp 98.1 F 03/13/24 13:07 Pulse 98 03/13/24 13:07 Resp 20 03/13/24 13:07 BP 101/65 03/13/24 13:07 Pulse Ox 94 L 03/13/24 13:07 FiO2 Intake & Output 03/12/24 03/13/24 03/13/24 18:59 06:59 18:59 Intake Total 500 Balance 500 Intake: Oral 500 Other: Voiding Method Toilet Toilet Urinal Urinal - Labs CBC & Chem 7: 03/13/24 04:30 03/13/24 04:30 Labs: Abnormal Lab Results - Last 24 Hours (Table) 03/12/24 03/13/24 03/13/24 Range/Units 20:06 04:30 04:30 MCV 100.7 H (80.0-100.0) fL Plt Count 131 L (150-450) k/uL Sodium 134 L (137-145) mmol/L Chloride 96 L (98-107) mmol/L Carbon Dioxide 31 H (22-30) mmol/L Glucose 159 H (74-99) mg/dL POC Glucose (mg/dL) 171 H (70-110) mg/dL 03/13/24 03/13/24 03/13/24 Range/Units 06:17 11:31 16:40 MCV (80.0-100.0) fL Plt Count (150-450) k/uL Sodium (137-145) mmol/L Chloride (98-107) mmol/L Carbon Dioxide (22-30) mmol/L Glucose (74-99) mg/dL POC Glucose (mg/dL) 150 H 207 H 148 H (70-110) mg/dL Microbiology - Last 24 Hours (Table) 03/11/24 09:45 Blood Culture - Preliminary Blood 03/11/24 09:45 Anaerobic Culture - Preliminary Leg - Right 03/11/24 09:45 Gram Stain - Final Leg - Right Wound Culture - Final Methicillin resist S. aureus
[2024-03-13] MEDS: ONDANSETRON 4 MG/2 ML VIAL IVP PRN (17:50)
[2024-03-13] MEDS: VANCOMYCIN TROUGH DUE 1 EACH MISC MISCELLANE ONE (19:00)
[2024-03-13] MEDS: LORazepam 2 MG/ML INJ IV PRN (22:50)
[2024-03-14 06:56] LABS: Glucose,Whole Blood 124 mg/dL (70-110)
--- NOTE | 2024-03-14 09:10 | P.PN ---
Subjective Progress Note Date: 03/12/24 Principal diagnosis: Reason for follow-up is bilateral lower extremity venous stasis ulcer and cellulitis Patient is a 48-year-old male with a past medical history significant for diabetes mellitus hypertension [place] patient did have history of chronic bilateral lower extremity swelling venous stasis ulcer and history of cellulitis, present to hospital with worsening swelling redness to bilateral lower extremity. On today's evaluation that is 03/12/2024, patient has been afebrile, patient is breathing comfortably and is currently on room air, patient denies having any significant cough no chest pain, patient denies nausea vomiting or diarrhea and no abdominal pain complaining of pain and swelling to the lower extremity but no worsening. Patient white count 7.47 creatinine is 1.1 local culture growing Staph aureus Objective - Vital Signs Vital signs: Vital Signs Temp 98.2 F 03/12/24 13:34 Pulse 101 H 03/12/24 13:34 Resp 20 03/12/24 13:34 BP 178/74 03/12/24 13:34 Pulse Ox 95 03/12/24 13:34 FiO2 Intake & Output 03/11/24 03/12/24 03/12/24 18:59 06:59 18:59 Intake Total 790 1050 Balance 790 1050 Intake: Intake, IV Titration 550 500 Amount Vancomycin 2,500 mg In 500 500 Sodium Chloride 0.9% 500 ml 500 ml @ 167 mls/hr IVPB Q12H [facility] Rx#: [id number] cefTRIAXone 2 gm In 50 Sodium Chloride 0.9% 50 ml @ 100 mls/hr IVPB Q24HR [facility] Rx#:[id number] Oral 240 550 Other: # Voids 4 # Bowel Movements 1 - Exam GENERAL DESCRIPTION: Middle-age male lying in bed in no distress RESPIRATORY SYSTEM: Unlabored breathing , decreased breath sounds at bases HEART: S1 S2 regular rate and rhythm , ABDOMEN: Soft , no tenderness EXTREMITIES: Bilateral extremity few swelling and redness slightly decreased - Labs CBC & Chem 7: 03/13/24 04:30 03/13/24 04:30 Labs: Abnormal Lab Results - Last 24 Hours (Table) 03/11/24 03/12/24 03/12/24 Range/Units 17:08 06:16 06:37 RBC (4.40-5.60) X 10*6/uL MCV (80.0-97.0) FL MCHC (32.0-37.0) g/dL RDW (11.5-14.5) % Plt Count (140-440) X 10*3/uL Immature Gran # (0.00-0.04) X 10*3/uL Chloride (96-109) mmol/L Carbon Dioxide (21.6-31.8) mmol/L BUN/Creatinine Ratio (12.00-20.00) Ratio Glucose (70-110) mg/dL POC Glucose (mg/dL) 159 H 165 H (70-110) mg/dL Hemoglobin A1c 8.0 H (<=6.0) % Albumin (3.8-4.9) g/dL Globulin (1.6-3.3) g/dL Albumin/Globulin Ratio (1.60-3.17) Ratio 03/12/24 03/12/24 03/12/24 Range/Units 06:37 06:37 11:27 RBC 4.38 L (4.40-5.60) X 10*6/uL MCV 101.4 H (80.0-97.0) FL MCHC 31.3 L (32.0-37.0) g/dL RDW 14.6 H (11.5-14.5) % Plt Count 121 L (140-440) X 10*3/uL Immature Gran # 0.06 H (0.00-0.04) X 10*3/uL Chloride 95 L (96-109) mmol/L Carbon Dioxide 32.2 H (21.6-31.8) mmol/L BUN/Creatinine Ratio 10.45 L (12.00-20.00) Ratio Glucose 196 H (70-110) mg/dL POC Glucose (mg/dL) 212 H (70-110) mg/dL Hemoglobin A1c (<=6.0) % Albumin 3.5 L (3.8-4.9) g/dL Globulin 3.7 H (1.6-3.3) g/dL Albumin/Globulin Ratio 0.95 L (1.60-3.17) Ratio Microbiology - Last 24 Hours (Table) 03/11/24 09:45 Gram Stain - Final Leg - Right Wound Culture - Final Presumptive Staph aureus Assessment and Plan (1) Bilateral leg ulcer Current Visit: Yes Status: Acute Code(s): L97.919 - NON-PRS CHRONIC ULC UNSP PRT OF R LOW LEG W UNSP SEVERITY; L97.929 - NON-PRS CHRONIC ULC UNSP PRT OF L LOW LEG W UNSP SEVERITY SNOMED Code(s): 82060446 (2) Bilateral lower leg cellulitis Current Visit: No Status: Acute Code(s): L03.116 - CELLULITIS OF LEFT LOWER LIMB; L03.115 - CELLULITIS OF RIGHT LOWER LIMB SNOMED Code(s): 034150135 Plan: 1patient presented to hospital with increasing swelling. Patient pain to bilateral lower extremity this patient did have diffuse swelling redness and complaint of venous stasis ulcer now with admission to the hospital with cellulitis likely from gram-positive hank, gram-negative Infection less likely but not entirely excluded 2local culture obtained currently growing Staph aureus with sensitivities pending 3local wound care with dry Aquacel dressing followed by Farooq wrap for compression 4patient will be treated with vancomycin pharmacy to dose and Rocephin while waiting for the culture to finalize Dictation was produced using [employer] dictation software. please excuse any grammatical, word or spelling errors. Time with Patient: Less than 30
--- NOTE | 2024-03-14 09:11 | P.PN ---
Subjective Progress Note Date: 03/13/24 Principal diagnosis: Reason for follow-up is bilateral lower extremity venous stasis ulcer and cellulitis Patient is a 48-year-old male with a past medical history significant for diabetes mellitus hypertension [place] patient did have history of chronic bilateral lower extremity swelling venous stasis ulcer and history of cellulitis, present to hospital with worsening swelling redness to bilateral lower extremity. On today's evaluation that is 03/13/2024, Patient is afebrile this morning patient denies having any chest pain shortness of breath or cough, the patient i s currently on room air, patient denies any abdominal pain no diarrhea no nausea no vomiting, the patient pain swelling to the leg slightly decreased. Patient white count is 8.0, creatinine 0.92 culture has been finalized with MRSA Objective - Vital Signs Vital signs: Vital Signs Temp 98.8 F 03/13/24 07:16 Pulse 85 03/13/24 07:16 Resp 19 03/13/24 07:16 BP 148/77 03/13/24 07:16 Pulse Ox 98 03/13/24 07:16 FiO2 Intake & Output 03/12/24 03/13/24 03/13/24 18:59 06:59 18:59 Intake Total 500 Balance 500 Intake: Oral 500 Other: Voiding Method Toilet Toilet Urinal Urinal - Exam GENERAL DESCRIPTION: Middle-age male lying in bed in no distress RESPIRATORY SYSTEM: Unlabored breathing , decreased breath sounds at bases HEART: S1 S2 regular rate and rhythm , ABDOMEN: Soft , no tenderness EXTREMITIES: Bilateral extremity few swelling and redness slightly decreased - Labs CBC & Chem 7: 03/13/24 04:30 03/13/24 04:30 Labs: Abnormal Lab Results - Last 24 Hours (Table) 03/12/24 03/12/24 03/13/24 Range/Units 16:25 20:06 04:30 MCV 100.7 H (80.0-100.0) fL Plt Count 131 L (150-450) k/uL Sodium (137-145) mmol/L Chloride (98-107) mmol/L Carbon Dioxide (22-30) mmol/L Glucose (74-99) mg/dL POC Glucose (mg/dL) 195 H 171 H (70-110) mg/dL 03/13/24 03/13/24 03/13/24 Range/Units 04:30 06:17 11:31 MCV (80.0-100.0) fL Plt Count (150-450) k/uL Sodium 134 L (137-145) mmol/L Chloride 96 L (98-107) mmol/L Carbon Dioxide 31 H (22-30) mmol/L Glucose 159 H (74-99) mg/dL POC Glucose (mg/dL) 150 H 207 H (70-110) mg/dL Microbiology - Last 24 Hours (Table) 03/11/24 09:45 Anaerobic Culture - Preliminary Leg - Right 03/11/24 09:45 Gram Stain - Final Leg - Right Wound Culture - Final Methicillin resist S. aureus 03/11/24 09:45 Blood Culture - Preliminary Blood Assessment and Plan (1) Bilateral leg ulcer Current Visit: Yes Status: Acute Code(s): L97.919 - NON-PRS CHRONIC ULC UNSP PRT OF R LOW LEG W UNSP SEVERITY; L97.929 - NON-PRS CHRONIC ULC UNSP PRT OF L LOW LEG W UNSP SEVERITY SNOMED Code(s): 95409392 (2) Bilateral lower leg cellulitis Current Visit: No Status: Acute Code(s): L03.116 - CELLULITIS OF LEFT LOWER LIMB; L03.115 - CELLULITIS OF RIGHT LOWER LIMB SNOMED Code(s): 436389323 (3) MRSA (methicillin resistant Staphylococcus aureus) infection Current Visit: Yes Status: Acute Code(s): A49.02 - METHICILLIN RESIS STAPH INFECTION, UNSP SITE SNOMED Code(s): 276428212 Plan: 1patient presented to hospital with increasing swelling. Patient pain to bilateral lower extremity this patient did have diffuse swelling redness and complaint of venous stasis ulcer now with admission to the hospital with cellulitis likely from gram-positive hank, gram-negative Infection less likely but not entirely excluded 2local culture currently growing MRSA with sensitivities pending 3nursing staff has been advised again to apply dry Aquacel dressing followed by Farooq wrap for compression 4patient will be treated with vancomycin pharmacy to dose however discontinue Rocephin Dictation was produced using [employer] dictation software. please excuse any grammatical, word or spelling errors. Time with Patient: Less than 30
[2024-03-14 11:36] LABS: Glucose,Whole Blood 123 mg/dL (70-110)
[2024-03-14] MEDS: VANCOMYCIN 2,500 MG in SODIUM CHLORIDE 0.9% 500 ML 500 ML IVPB SCH (12:40)
--- NOTE | 2024-03-14 15:06 | P.PN ---
Subjective Progress Note Date: 03/14/24 Principal diagnosis: Reason for follow-up is bilateral lower extremity venous stasis ulcer and cellulitis Patient is a 48-year-old male with a past medical history significant for diabetes mellitus hypertension [place] patient did have history of chronic bilateral lower extremity swelling venous stasis ulcer and history of cellulitis, present to hospital with worsening swelling redness to bilateral lower extremity. On today's evaluation that is 03/14/2024,the patient denies any fever or any chills, patient is breathing comfortably on room air, the patient denies chest pain shortness of breath and no significant cough, patient denies abdominal pain, no nausea vomiting or diarrhea. Pain to the lower extremity has decreased in intensity. Did not have a lab draw today vancomycin trough was 19.1 blood culture negative Objective - Vital Signs Vital signs: Vital Signs Temp 98.2 F 03/14/24 07:21 Pulse 102 H 03/14/24 11:04 Resp 15 03/14/24 11:04 BP 121/69 03/14/24 07:21 Pulse Ox 94 L 03/14/24 07:21 FiO2 Intake & Output 03/13/24 03/14/24 03/14/24 18:59 06:59 18:59 Intake Total 800 Balance 800 Intake: Intake, IV Titration 500 Amount Vancomycin 2,500 mg In 500 Sodium Chloride 0.9% 500 ml 500 ml @ 167 mls/hr IVPB Q12H [facility] Rx#: [id number] Oral 300 Other: Voiding Method Toilet Toilet Urinal Urinal # Voids 2 3 # Bowel Movements 1 - Exam GENERAL DESCRIPTION: Middle-age male lying in bed in no distress RESPIRATORY SYSTEM: Unlabored breathing , decreased breath sounds at bases HEART: S1 S2 regular rate and rhythm , ABDOMEN: Soft , no tenderness EXTREMITIES: Bilateral extremity few swelling and redness slightly decreased - Labs CBC & Chem 7: 03/13/24 04:30 03/13/24 04:30 Labs: Abnormal Lab Results - Last 24 Hours (Table) 03/13/24 03/14/24 03/14/24 Range/Units 16:40 06:54 11:34 POC Glucose (mg/dL) 148 H 124 H 123 H (70-110) mg/dL Microbiology - Last 24 Hours (Table) 03/11/24 09:45 Blood Culture - Preliminary Blood 03/11/24 09:45 Anaerobic Culture - Preliminary Leg - Right 03/11/24 09:45 Gram Stain - Final Leg - Right Wound Culture - Final Methicillin resist S. aureus Assessment and Plan (1) Bilateral leg ulcer Current Visit: Yes Status: Acute Code(s): L97.919 - NON-PRS CHRONIC ULC UNSP PRT OF R LOW LEG W UNSP SEVERITY; L97.929 - NON-PRS CHRONIC ULC UNSP PRT OF L LOW LEG W UNSP SEVERITY SNOMED Code(s): 36725062 (2) Bilateral lower leg cellulitis Current Visit: No Status: Acute Code(s): L03.116 - CELLULITIS OF LEFT LOWER LIMB; L03.115 - CELLULITIS OF RIGHT LOWER LIMB SNOMED Code(s): 850186859 (3) MRSA (methicillin resistant Staphylococcus aureus) infection Current Visit: Yes Status: Acute Code(s): A49.02 - METHICILLIN RESIS STAPH INFECTION, UNSP SITE SNOMED Code(s): 053935170 Plan: 1patient presented to hospital with increasing swelling. Patient pain to bilateral lower extremity this patient did have diffuse swelling redness and complaint of venous stasis ulcer now with admission to the hospital with cellulitis likely from gram-positive hank, gram-negative Infection less likely but not entirely excluded 2local culture currently growing MRSA with sensitivities pending 3patient to continue with apply dry Aquacel dressing followed by Farooq wrap for compression 4patient will be treated with vancomycin pharmacy to dose for another day or so before transition to oral antibiotic questions were answered Dictation was produced using [employer] dictation software. please excuse any grammatical, word or spelling errors. Time with Patient: Less than 30
--- NOTE | 2024-03-14 16:13 | P.PN ---
Subjective Interval History: 48-year-old male patient with past medical history significant for lymphedema, diabetes mellitus, history of coronary artery disease and stent of OM1 who presented to ER with a complaint of increased pain and swelling of the lower extremities. Patient reported that he was having progressively worsening redness swelling and pain of the lower extremities along with large amount of weeping from the legs more pronounced on the left lower extremity than right. Patient denied any fever or chills. Patient reported a history of lower extremity cellulitis in the past. Patient denied any headache, sore throat, productive cough, chest pain, palpitations, nausea vomiting diarrhea constipation abdominal pain dysuria urgency frequency weakness or numbness of the extremities. In the ED patient temperature 99.1, heart rate 117, respiratory rate 20, blood pressure 168/117, saturating 95% on room air. WBC 9.6, hemoglobin 14.8, platelets 148. Lactic acid was 2.1. Sodium 135, potassium 4.2, CO2 30, BUN 18, creatinine 1.10. CRP 2.7. Bilateral x-ray tibia-fibula was negative for any acute process, showed soft tissue swelling throughout the leg without evidence of osseous erosion or subcutaneous lucency to suggest gas. 03/12patient was seen and examined today. Vital stable, patient tachycardic, blood pressure elevated. WBCs 7.4, hemoglobin 13.9, platelets 121. BMP showed BUN 11.5, creatinine 1.1. Blood glucose 212. LFTs unremarkable. Added hydralazine, continue Norvasc. Continue Rocephin and vancomycin. Infectious disease following. Wound culture growing Staph aureus. 03/13--patient was seen and examined today. Vital stable. CBC and BMP stable. Wound culture growing MRSA. Patient currently on vancomycin. Infectious disease following. 03/14/24--patient was seen and examined today. No issues overnight. Remained afebrile, heart rate 92, respiratory rate 15, blood pressure 103/58, saturating 95% on room air. Currently on vancomycin, infectious disease following. Assessment and plan: Bilateral lower extremity cellulitis: History of lymphedema History of coronary artery disease/PCI of OM1 Diabetes mellitus Hypertension Hyperlipidemia Plan Continue vancomycin, Rocephin discontinued. Wound culture growing MRSA. Pain control Infectious disease consult Resume home Lasix Resume home medications Accu-Cheks, diabetic diet, sliding scale insulin. DVT prophylaxis Subcutaneous heparin Monitor vital signs and labs Labs and medication were reviewed. Continue same treatment. Further recommendations as per clinical course of the patient PHYSICAL EXAMINATION: GENERAL: The patient is A&O x3, NAD HEENT: EOMI, Sclerae anicteric, Moist Mucous membranes Neck: Supple, Non tender, No JVD PULMONARY: Equal breath souds B/L, No wheezing, No crackles. CARDIOVASCULAR: S1, S2 present. No murmurs, rubs, or gallops. ABDOMEN: Soft, nontender, nondistended, normoactive bowel sounds. No guarding or rebound tenderness. MUSCULOSKELETAL: ++edema, bilateral lower extremity erythema, tenderness, weeping. No cyanosis. No clubbing. Normal ROM. Intact peripheral pulses. NEUROLOGICAL: CN 2-12 grossly intact. No FND REVIEW OF SYSTEMS: CONSTITUTIONAL: No fever or chills. CARDIOVASCULAR: No chest pain, palpitations or syncope. PULMONARY: No shortness of breath, no cough, sore throat. GASTROINTESTINAL: No nausea, vomiting, diarrhea, abdominal pain. : No Dysuria, urgency, frequency. Extremities: No edema. NEUROLOGICAL: No headaches, no weakness, or numbness Dictation was produced using [employer] dictation software. please excuse any grammatical, word or spelling errors. Objective - Vital Signs Vital signs: Vital Signs Temp 98.1 F 03/14/24 13:13 Pulse 92 03/14/24 13:13 Resp 15 03/14/24 13:13 BP 103/58 03/14/24 13:13 Pulse Ox 95 03/14/24 13:13 FiO2 Intake & Output 03/13/24 03/14/24 03/14/24 18:59 06:59 18:59 Intake Total 800 Balance 800 Intake: Intake, IV Titration 500 Amount Vancomycin 2,500 mg In 500 Sodium Chloride 0.9% 500 ml 500 ml @ 167 mls/hr IVPB Q12H [facility] Rx#: [id number] Oral 300 Other: Voiding Method Toilet Toilet Urinal Urinal # Voids 2 3 # Bowel Movements 1 - Labs CBC & Chem 7: 03/13/24 04:30 03/13/24 04:30 Labs: Abnormal Lab Results - Last 24 Hours (Table) 03/13/24 03/14/24 03/14/24 Range/Units 16:40 06:54 11:34 POC Glucose (mg/dL) 148 H 124 H 123 H (70-110) mg/dL Microbiology - Last 24 Hours (Table) 03/11/24 09:45 Blood Culture - Preliminary Blood 03/11/24 09:45 Anaerobic Culture - Preliminary Leg - Right
[2024-03-14 17:33] LABS: Glucose,Whole Blood 139 mg/dL (70-110)
[2024-03-14 21:54] LABS: Glucose,Whole Blood 141 mg/dL (70-110)
[2024-03-15 03:18] LABS: Basophils # (A) 0.1 k/uL (0-0.2); Basophils % (A) 1 %; Eosinophils # (A) 0.4 k/uL (0-0.7); Eosinophils % (A) 4 %; HCT 44.7 % (39.0-53.0); HGB 14.4 gm/dL (13.0-17.5); Lymphocytes # (A) 1.1 k/uL (1.0-4.8); Lymphocytes % (A) 13 %; MCH 32.6 pg (25.0-35.0); MCHC 32.3 g/dL (31.0-37.0); MCV 100.9 fL (80.0-100.0); Macrocytosis Slight; Mean Platelet Volume 8.8; Monocytes # (A) 0.5 k/uL (0-1.0); Monocytes % (A) 6 %; Neutrophils # (A) 6.8 k/uL (1.3-7.7); Neutrophils % (A) 76 %; Platelet Count 131 k/uL (150-450); RBC 4.43 m/uL (4.30-5.90); RDW 14.6 % (11.5-15.5)
[2024-03-15 03:33] LABS: African American GFR (CKD) >90 (>60 ml/min/1.73 sqM); Anion Gap 7 mmol/L; Blood Urea Nitrogen 12 mg/dL (9-20); Calcium 9.1 mg/dL (8.4-10.2); Carbon Dioxide 30 mmol/L (22-30); Chloride 95 mmol/L (98-107); Glucose 119 mg/dL (74-99); Non-African American GFR(CKD) 89 (>60 ml/min/1.73 sqM); Potassium 3.9 mmol/L (3.5-5.1); Sodium 132 mmol/L (137-145)
[2024-03-15 06:22] LABS: Glucose,Whole Blood 141 mg/dL (70-110)
[2024-03-15 12:05] LABS: Glucose,Whole Blood 133 mg/dL (70-110)
[2024-03-15 14:24] VITALS: BMI 47.5
--- NOTE | 2024-03-15 15:06 | P.PN ---
Subjective Progress Note Date: 03/15/24 Principal diagnosis: Reason for follow-up is bilateral lower extremity venous stasis ulcer and cellulitis Patient is a 48-year-old male with a past medical history significant for diabetes mellitus hypertension [place] patient did have history of chronic bilateral lower extremity swelling venous stasis ulcer and history of cellulitis, present to hospital with worsening swelling redness to bilateral lower extremity. On today's evaluation that is 03/15/2024,the patient remains to be afebrile, patient is on room air not requiring supplemental oxygen and denies any shortn ess of breath no chest pain or cough.Patient denies having any nausea or vomiting, no abdominal pain and no diarrhea, still complaining of pain to lower extremity that has slightly decreased intensity. Patient white count 9.0, creatinine 1.0 Objective - Vital Signs Vital signs: Vital Signs Temp 98.8 F 03/15/24 08:00 Pulse 89 03/15/24 10:07 Resp 18 03/15/24 10:07 BP 120/60 03/15/24 08:00 Pulse Ox 96 03/15/24 08:00 FiO2 Intake & Output 03/14/24 03/15/24 03/15/24 18:59 06:59 18:59 Intake Total 100 200 Balance 100 200 Weight 176.901 kg Intake: Oral 100 200 Other: Voiding Method Toilet Toilet Urinal Urinal # Voids 2 - Exam GENERAL DESCRIPTION: Middle-age male lying in bed in no distress RESPIRATORY SYSTEM: Unlabored breathing , decreased breath sounds at bases HEART: S1 S2 regular rate and rhythm , ABDOMEN: Soft , no tenderness EXTREMITIES: Bilateral extremity currently wrapped for drainage of the dressing - Labs CBC & Chem 7: 03/15/24 02:39 03/15/24 02:39 Labs: Abnormal Lab Results - Last 24 Hours (Table) 03/14/24 03/14/24 03/15/24 Range/Units 17:31 21:52 02:39 MCV (80.0-100.0) fL Plt Count (150-450) k/uL Sodium 132 L (137-145) mmol/L Chloride 95 L (98-107) mmol/L Glucose 119 H (74-99) mg/dL POC Glucose (mg/dL) 139 H 141 H (70-110) mg/dL 03/15/24 03/15/24 03/15/24 Range/Units 02:39 06:19 12:04 MCV 100.9 H (80.0-100.0) fL Plt Count 131 L (150-450) k/uL Sodium (137-145) mmol/L Chloride (98-107) mmol/L Glucose (74-99) mg/dL POC Glucose (mg/dL) 141 H 133 H (70-110) mg/dL Microbiology - Last 24 Hours (Table) 03/11/24 09:45 Anaerobic Culture - Final Leg - Right 03/11/24 09:45 Blood Culture - Preliminary Blood Assessment and Plan (1) Bilateral leg ulcer Current Visit: Yes Status: Acute Code(s): L97.919 - NON-PRS CHRONIC ULC UNSP PRT OF R LOW LEG W UNSP SEVERITY; L97.929 - NON-PRS CHRONIC ULC UNSP PRT OF L LOW LEG W UNSP SEVERITY SNOMED Code(s): 52811400 (2) Bilateral lower leg cellulitis Current Visit: No Status: Acute Code(s): L03.116 - CELLULITIS OF LEFT LOWER LIMB; L03.115 - CELLULITIS OF RIGHT LOWER LIMB SNOMED Code(s): 859290492 (3) MRSA (methicillin resistant Staphylococcus aureus) infection Current Visit: Yes Status: Acute Code(s): A49.02 - METHICILLIN RESIS STAPH INFECTION, UNSP SITE SNOMED Code(s): 984100540 Plan: 1patient presented to hospital with increasing swelling. Patient pain to bilateral lower extremity this patient did have diffuse swelling redness and complaint of venous stasis ulcer now with admission to the hospital with cellulitis likely from gram-positive hank, gram-negative Infection less likely but not entirely excluded 2local culture currently growing MRSA which is sensitive to tetracycline and Bactrim 3patient to continue with apply dry Aquacel dressing followed by Farooq wrap for compression 4patient will be treated with vancomycin pharmacy to dose for another day and finishing therapy with oral doxycycline 100 twice daily for 10 days prescription sent to the pharmacy Dictation was produced using [employer] dictation software. please excuse any grammatical, word or spelling errors. Time with Patient: Less than 30
--- NOTE | 2024-03-15 15:20 | P.PN ---
Subjective Interval History: 48-year-old male patient with past medical history significant for lymphedema, diabetes mellitus, history of coronary artery disease and stent of OM1 who presented to ER with a complaint of increased pain and swelling of the lower extremities. Patient reported that he was having progressively worsening redness swelling and pain of the lower extremities along with large amount of weeping from the legs more pronounced on the left lower extremity than right. Patient denied any fever or chills. Patient reported a history of lower extremity cellulitis in the past. Patient denied any headache, sore throat, productive cough, chest pain, palpitations, nausea vomiting diarrhea constipation abdominal pain dysuria urgency frequency weakness or numbness of the extremities. In the ED patient temperature 99.1, heart rate 117, respiratory rate 20, blood pressure 168/117, saturating 95% on room air. WBC 9.6, hemoglobin 14.8, platelets 148. Lactic acid was 2.1. Sodium 135, potassium 4.2, CO2 30, BUN 18, creatinine 1.10. CRP 2.7. Bilateral x-ray tibia-fibula was negative for any acute process, showed soft tissue swelling throughout the leg without evidence of osseous erosion or subcutaneous lucency to suggest gas. 03/12patient was seen and examined today. Vital stable, patient tachycardic, blood pressure elevated. WBCs 7.4, hemoglobin 13.9, platelets 121. BMP showed BUN 11.5, creatinine 1.1. Blood glucose 212. LFTs unremarkable. Added hydralazine, continue Norvasc. Continue Rocephin and vancomycin. Infectious disease following. Wound culture growing Staph aureus. 03/13--patient was seen and examined today. Vital stable. CBC and BMP stable. Wound culture growing MRSA. Patient currently on vancomycin. Infectious disease following. 03/14/24--patient was seen and examined today. No issues overnight. Remained afebrile, heart rate 92, respiratory rate 15, blood pressure 103/58, saturating 95% on room air. Currently on vancomycin, infectious disease following. 03/15/24--- patient was seen and examined today. No issues overnight. Remained afebrile, heart rate 83, respiratory rate 17, blood pressure 138/69, saturating 95% on room air. CBC stable, platelets 131. WBC 9.0. Hemoglobin 14.4. BMP unremarkable, mildly low sodium 132. Currently on vancomycin, infectious disease following, plan to switch to doxycycline for 10 days at discharge. Assessment and plan: Bilateral lower extremity cellulitis: History of lymphedema History of coronary artery disease/PCI of OM1 Diabetes mellitus Hypertension Hyperlipidemia Plan Continue vancomycin, Rocephin discontinued. Wound culture growing MRSA. Plan for oral doxycycline for 10 days at discharge. Pain control Infectious disease consult Resume home Lasix Resume home medications Accu-Cheks, diabetic diet, sliding scale insulin. DVT prophylaxis Subcutaneous heparin Monitor vital signs and labs Labs and medication were reviewed. Continue same treatment. Further recommendations as per clinical course of the patient PHYSICAL EXAMINATION: GENERAL: The patient is A&O x3, NAD HEENT: EOMI, Sclerae anicteric, Moist Mucous membranes Neck: Supple, Non tender, No JVD PULMONARY: Equal breath souds B/L, No wheezing, No crackles. CARDIOVASCULAR: S1, S2 present. No murmurs, rubs, or gallops. ABDOMEN: Soft, nontender, nondistended, normoactive bowel sounds. No guarding or rebound tenderness. MUSCULOSKELETAL: ++edema, bilateral lower extremity erythema, tenderness, weeping. No cyanosis. No clubbing. Normal ROM. Intact peripheral pulses. NEUROLOGICAL: CN 2-12 grossly intact. No FND REVIEW OF SYSTEMS: CONSTITUTIONAL: No fever or chills. CARDIOVASCULAR: No chest pain, palpitations or syncope. PULMONARY: No shortness of breath, no cough, sore throat. GASTROINTESTINAL: No nausea, vomiting, diarrhea, abdominal pain. : No Dysuria, urgency, frequency. Extremities: No edema. NEUROLOGICAL: No headaches, no weakness, or numbness Dictation was produced using [employer] dictation software. please excuse any grammatical, word or spelling errors. Objective - Vital Signs Vital signs: Vital Signs Temp 98.0 F 03/15/24 14:00 Pulse 83 03/15/24 14:00 Resp 17 03/15/24 14:00 BP 138/69 03/15/24 14:00 Pulse Ox 95 03/15/24 14:00 FiO2 Intake & Output 03/14/24 03/15/24 03/15/24 18:59 06:59 18:59 Intake Total 100 200 Balance 100 200 Weight 176.901 kg Intake: Oral 100 200 Other: Voiding Method Toilet Toilet Urinal Urinal # Voids 2 - Labs CBC & Chem 7: 01/02/25 02:39 03/15/24 02:39 Labs: Abnormal Lab Results - Last 24 Hours (Table) 03/14/24 03/14/24 03/15/24 Range/Units 17:31 21:52 02:39 MCV (80.0-100.0) fL Plt Count (150-450) k/uL Sodium 132 L (137-145) mmol/L Chloride 95 L (98-107) mmol/L Glucose 119 H (74-99) mg/dL POC Glucose (mg/dL) 139 H 141 H (70-110) mg/dL 03/15/24 03/15/24 03/15/24 Range/Units 02:39 06:19 12:04 MCV 100.9 H (80.0-100.0) fL Plt Count 131 L (150-450) k/uL Sodium (137-145) mmol/L Chloride (98-107) mmol/L Glucose (74-99) mg/dL POC Glucose (mg/dL) 141 H 133 H (70-110) mg/dL Microbiology - Last 24 Hours (Table) 03/11/24 09:45 Anaerobic Culture - Final Leg - Right 03/11/24 09:45 Blood Culture - Preliminary Blood
[2024-03-15 17:03] LABS: Glucose,Whole Blood 126 mg/dL (70-110)
[2024-03-15 20:43] VITALS: TEMP 98.4
[2024-03-15 20:46] LABS: Glucose,Whole Blood 165 mg/dL (70-110)
[2024-03-16 00:14] VITALS: RESP 18
[2024-03-16 06:19] LABS: Glucose,Whole Blood 128 mg/dL (70-110)
[2024-03-16 07:54] VITALS: BP 127/70; PULSE 90
[2024-03-16] MEDS: VANCOMYCIN TROUGH DUE 1 EACH MISC MISCELLANE ONE (11:10)
[2024-03-16 11:37] LABS: Glucose,Whole Blood 118 mg/dL (70-110)
[2024-03-16 11:55] LABS: African American GFR (CKD) >90 (>60 ml/min/1.73 sqM); Non-African American GFR(CKD) 80 (>60 ml/min/1.73 sqM)
--- NOTE | 2024-03-16 14:43 | P.PN ---
Subjective Progress Note Date: 03/16/24 Principal diagnosis: Reason for follow-up is bilateral lower extremity venous stasis ulcer and cellulitis Patient is a 48-year-old male with a past medical history significant for diabetes mellitus hypertension [place] patient did have history of chronic bilateral lower extremity swelling venous stasis ulcer and history of cellulitis, present to hospital with worsening swelling redness to bilateral lower extremity. On today's evaluation that is 03/16/2024, the patient continues to be afebrile, the patient is on room air and breathing comfortably, the Pt denies having any chest pain or cough, the patient denies having any abdominal pain no vomiting or any diarrhea pain to the lower extremity has decreased feeling better wants to go home. Patient did have a creatinine 1.09 Vanco trough is 23.8 local culture with MRSA that is sensitive to tetracycline Objective - Vital Signs Vital signs: Vital Signs Temp 98.4 F 03/16/24 07:50 Pulse 90 03/16/24 07:50 Resp 18 03/16/24 07:50 BP 127/70 03/16/24 07:50 Pulse Ox 96 03/16/24 07:50 FiO2 Intake & Output 03/15/24 03/16/24 03/16/24 18:59 06:59 18:59 Intake Total 100 10 Balance 100 10 Weight 176.901 kg Intake: IV 10 Invasive Line 4 10 Oral 100 Other: Voiding Method Toilet Toilet Urinal Urinal # Voids 2 - Exam GENERAL DESCRIPTION: Middle-age male lying in bed in no distress RESPIRATORY SYSTEM: Unlabored breathing , decreased breath sounds at bases HEART: S1 S2 regular rate and rhythm , ABDOMEN: Soft , no tenderness EXTREMITIES: Bilateral extremity currently wrapped for drainage of the dressing - Labs CBC & Chem 7: 03/15/24 02:39 03/16/24 11:06 Labs: Abnormal Lab Results - Last 24 Hours (Table) 03/15/24 03/15/24 03/16/24 Range/Units 17:03 20:45 06:17 POC Glucose (mg/dL) 126 H 165 H 128 H (70-110) mg/dL 03/16/24 Range/Units 11:35 POC Glucose (mg/dL) 118 H (70-110) mg/dL Microbiology - Last 24 Hours (Table) 03/11/24 09:45 Anaerobic Culture - Final Leg - Right Assessment and Plan (1) Bilateral leg ulcer Status: Acute Code(s): L97.919 - NON-PRS CHRONIC ULC UNSP PRT OF R LOW LEG W UNSP SEVERITY; L97.929 - NON-PRS CHRONIC ULC UNSP PRT OF L LOW LEG W UNSP SEVERITY SNOMED Code(s): 35631263 (2) Bilateral lower leg cellulitis Status: Acute Code(s): L03.116 - CELLULITIS OF LEFT LOWER LIMB; L03.115 - CELLULITIS OF RIGHT LOWER LIMB SNOMED Code(s): 018640059 (3) MRSA (methicillin resistant Staphylococcus aureus) infection Status: Acute Code(s): A49.02 - METHICILLIN RESIS STAPH INFECTION, UNSP SITE SNOMED Code(s): 734102443 Plan: 1patient presented to hospital with increasing swelling. Patient pain to bilateral lower extremity this patient did have diffuse swelling redness and complaint of venous stasis ulcer now with admission to the hospital with cellulitis likely from gram-positive hank, gram-negative Infection less likely but not entirely excluded 2local culture currently growing MRSA which is sensitive to tetracycline and Bactrim 3patient advised local care with apply dry Aquacel dressing followed by Farooq wrap for compression change q. 48-hour 4patient has received adequate IV vancomycin will finish therapy with oral dox ycycline prescription already sent to the pharmacy Dictation was produced using [employer] dictation software. please excuse any grammatical, word or spelling errors. Time with Patient: Less than 30
--- NOTE | 2024-03-16 16:28 | P.DS ---
Providers Date of admission: 03/11/24 09:28 Expected date of discharge: 03/16/24 Attending physician: Inez Leavitt Consults: 03/11/24 09:27 Consult Physician Routine Consulting Provider: Denise Guo Consult Reason/Comments: BLLE cellulitis Do you want consulting provider notified?: Yes Primary care physician: Stated None Hospital Course: Discharge diagnoses: Bilateral lower extremity cellulitis: History of lymphedema History of coronary artery disease/PCI of OM1 Diabetes mellitus Hypertension Hyperlipidemia Treated with IV antibiotics during hospitalization, initially received vancomycin and Rocephin. Later on received vancomycin as wound cultures were growing MRSA. Infectious disease consulted. Continued on oral doxycycline for 10 days at discharge per infectious disease recommendations and wound care. Follow-up with PCP. Hospital course: 48-year-old male patient with past medical history significant for lymphedema, diabetes mellitus, history of coronary artery disease and stent of OM1 who presented to ER with a complaint of increased pain and swelling of the lower extremities. Patient reported that he was having progressively worsening redness swelling and pain of the lower extremities along with large amount of weeping from the legs more pronounced on the left lower extremity than right. Patient denied any fever or chills. Patient reported a history of lower extremity cellulitis in the past. Patient denied any headache, sore throat, productive cough, chest pain, palpitations, nausea vomiting diarrhea constipation abdominal pain dysuria urgency frequency weakness or numbness of the extremities. In the ED patient temperature 99.1, heart rate 117, respiratory rate 20, blood pressure 168/117, saturating 95% on room air. WBC 9.6, hemoglobin 14.8, platelets 148. Lactic acid was 2.1. Sodium 135, potassium 4.2, CO2 30, BUN 18, creatinine 1.10. CRP 2.7. Bilateral x-ray tibia-fibula was negative for any acute process, showed soft tissue swelling throughout the leg without evidence of osseous erosion or subcutaneous lucency to suggest gas. Patient was admitted to hospital for further evaluation and management of bilateral lower extremity cellulitis. Patient initially was started on vancomycin and Rocephin. Infectious disease consulted. Wound culture later on grew Staph aureus. Patient's antibiotics were de-escalated to IV vancomycin. Patient's symptoms gradually improved during hospitalization. Vitals and labs were monitored. Infectious disease recommended to continue doxycycline for 10 days at discharge. Recommended continued wound care with Aquacel dressing and Farooq wrap's. Patient condition vital stable at discharge. Follow-up with PCP in 1 week. PHYSICAL EXAMINATION: GENERAL: The patient is A&O x3, NAD HEENT: EOMI, Sclerae anicteric, Moist Mucous membranes Neck: Supple, Non tender, No JVD PULMONARY: Equal breath souds B/L, No wheezing, No crackles. CARDIOVASCULAR: S1, S2 present. No murmurs, rubs, or gallops. ABDOMEN: Soft, nontender, nondistended, normoactive bowel sounds. No guarding or rebound tenderness. MUSCULOSKELETAL: No edema, No cyanosis. No clubbing. Normal ROM. Intact peripheral pulses. Farooq wrap in place. NEUROLOGICAL: CN 2-12 grossly intact. No FND SKIN: No rashes. Dictation was produced using [employer] dictation software. please excuse any grammatical, word or spelling errors. Patient Condition at Discharge: Fair Plan - Discharge Summary New Discharge Prescriptions: New Doxycycline [Vibramycin] 100 mg PO BID #20 capsule HYDROcodone/APAP 5-325MG [Huron 5-325] 1 each PO Q6HR PRN #12 tab PRN Reason: Pain Acetaminophen Tab [Tylenol] 500 mg PO Q6HR PRN tab PRN Reason: Fever And/ Or Pain Aspirin 81 mg PO DAILY #90 tab Losartan [Cozaar] 25 mg PO DAILY #30 tab Continue amLODIPine [Norvasc] 10 mg PO DAILY #30 tab Furosemide [Lasix] 40 mg PO DAILY metFORMIN HCL [Glucophage] 1,000 mg PO DAILY Discharge Medication List amLODIPine [Norvasc] 10 mg PO DAILY #30 tab 04/27/23 [Rx] Furosemide [Lasix] 40 mg PO DAILY 07/22/23 [History] metFORMIN HCL [Glucophage] 1,000 mg PO DAILY 03/11/24 [History] Doxycycline [Vibramycin] 100 mg PO BID #20 capsule 03/15/24 [Rx] Acetaminophen Tab [Tylenol] 500 mg PO Q6HR PRN tab 03/16/24 [Rx] Aspirin 81 mg PO DAILY #90 tab 03/16/24 [Rx] HYDROcodone/APAP 5-325MG [Huron 5-325] 1 each PO Q6HR PRN #12 tab 03/16/24 [Rx] Losartan [Cozaar] 25 mg PO DAILY #30 tab 03/16/24 [Rx] Follow up Appointment(s)/Referral(s): None,Stated [Primary Care Provider] - 1-2 days Patient Instructions/Handouts: MRSA (Methicillin-Resistant Staphylococcus Aureus) (DC), Cellulitis (GEN) Discharge/Stand Alone Forms: Diabetes Self-Management, Community Resources, Area PCPs Discharge Disposition: HOME SELF-CARE
--- NOTE | 2024-03-19 11:56 | CDI ---
Documentation Clarification Form Date: 03/19/2024 11:36:37 AM From: Gwen Antunez Phone: Admit Date: 03/11/2024 09:28:00 AM Patient Name: Issa Yuan Visit Number: [id number] Discharge Date: 03/16/2024 12:23:00 PM ATTENTION: The Clinical Documentation Specialists (CDI) and [facility] Coding Staff appreciate your assistance in clarifying documentation. Please respond to the clarification below the line at the bottom and electronically sign. The CDI & [facility] Coding staff will review the response and follow-up if needed. Please note: Queries are made part of the Legal Health Record. If you have any questions, please contact the author of this message via ITS. Doctor/Provider: Elijah Valencia There is documentation of Bilateral Leg cellulitis in DS on 03/16/2024 and pt have history of diabetes Mellitus 2. Additional clarification is requested. History/Risk Factors: 48-year-old male patient with past medical history significant forlymphedema, diabetes mellitus, history ofcoronary artery diseaseandstentof OM1 who presented to ER with a complaint of increasedpainandswelling of the lower extremities. Clinical Indicators: On 03/11 ED note -Does have a history of chronic weeping wounds but states the weeping has been worse and discharge appears more purulent with surroundingerythema. He has a history of diabetesas well. Has a history ofcellulitison his legs. States he has been compliant with his Lasix which she has been using for his chroniclymphedema. On 03/12pn -patient was seen and examined today. Vital stable, patienttachycardic, blood pressure elevated. WBCs 7. 4, hemoglobin 13. 9, platelets 121. BMPshowed BUN 11. 5, creatinine 1. 1. Blood glucose 212. LFTs unremarkable. Added hydralazine, continue Norvasc. Continue Rocephin and vancomycin. Infectious diseasefollowing. Woundculture growingStaphaureus. 03/13--patient was seen and examined today. Vital stable. CBC andBMPstable. Woundculture growingMRSA. Patient currently on vancomycin. Infectious diseasefollowing. 03/14/24--patient was seen and examined today. No issues overnight. Remained afebrile, heart rate 92, respiratory rate 15, [id number]/58, saturating 95% on room air. Currently on vancomycin,infectious diseasefollowing. 03/15/24--- patient was seen and examined today. No issues overnight. Remained afebrile, heart rate 83, respiratory rate 17, [id number]/69, saturating 95% on room air. CBC stable, platelets 131. WBC 9. 0. Hemoglobin 14. 4. BMP unremarkable, mildly low sodium 132. Currently on vancomycin, infectious disease following, plan to switch to doxycycline for 10 days at discharge. Treatment: Continue vancomycin and Rocephin Paincontrol Infectious diseaseconsult Resume home Lasix Resume home medications Accu-Cheks,diabeticdiet, sliding scale insulin. Can you please clarify if Cellulitis is Diabetes Mellitus Skin Complication ? [ ] No , Cellulitis is not Diabetes Mellitus Skin Complication [ x ] Yes , Cellulitis is Diabetes Mellitus Skin Complication [ ] Other, please specify [ ] Unable to determine (Template Last Revised: May 2020) MTDD
== END 2024-03-16 12:23 | disposition home or self-care (01) | DRG 380 ==
LOC: EC 00:51 → 5NMEDONC 09:28 → 1SOBS 03-12 07:11
PROVIDERS: ADMIT Hospitalist; ATTEND Hospitalist
DX: E11.628 Type 2 diabetes mellitus with other skin complications (principal); L03.115 Cellulitis of right lower limb; L03.116 Cellulitis of left lower limb; I89.0 Lymphedema, not elsewhere classified; I25.10 Atherosclerotic heart disease of native coronary artery without angina pectoris; I10 Essential (primary) hypertension; E78.5 Hyperlipidemia, unspecified; I25.2 Old myocardial infarction; F17.200 Nicotine dependence, unspecified, uncomplicated; I83.029 Varicose veins of left lower extremity with ulcer of unspecified site; I83.019 Varicose veins of right lower extremity with ulcer of unspecified site; B95.62 Methicillin resistant Staphylococcus aureus infection as the cause of diseases classified elsewhere; L97.929 Non-pressure chronic ulcer of unspecified part of left lower leg with unspecified severity; L97.919 Non-pressure chronic ulcer of unspecified part of right lower leg with unspecified severity; Z95.5 Presence of coronary angioplasty implant and graft; Z79.82 Long term (current) use of aspirin; Z79.899 Other long term (current) drug therapy; Z79.84 Long term (current) use of oral hypoglycemic drugs; Z88.8 Allergy status to other drugs, medicaments and biological substances; Z91.018 Allergy to other foods
CPT/HCPCS: 36415; 80048; 80053; 80202; 82565; 83036; 83605; 85025; 86140; 87040; 87070; 87075; 87077; 87186; 87205; 90471; 90715; 96365; 96366; 96368; 96372; 96375; 96376; 99285

== ENCOUNTER 2024-07-09 19:23 | Emergency (ER) | payer OTHER ==
[2024-07-09 19:34] LABS: Glucose,Whole Blood 272 mg/dL (70-110)
[2024-07-09 20:25] LABS: Basophils # (A) 0.09 10*3/uL (0.00-0.10); Basophils % (A) 0.8 %; Eosinophils # (A) 0.16 10*3/uL (0.04-0.35); Eosinophils % (A) 1.4 %; HCT 44.2 % (39.6-50.0); HGB 15.3 g/dL (13.0-17.0); Immature Platelet Fraction 5.1 % (1.1-6.1); Lymphocytes # (A) 1.52 10*3/uL (0.90-5.00); Lymphocytes % (A) 13.6 %; MCH 34.3 pg (27.0-32.0); MCHC 34.6 g/dL (32.0-37.0); MCV 99.1 fL (80.0-97.0); Mean Platelet Volume 10.6 fL (9.5-12.2); Monocytes % (A) 6.3 %; Neutrophils # (A) 8.61 10*3/uL (1.80-7.70); Neutrophils % (A) 77.2 %; Platelet Count 139 10*3/uL (140-440); RBC 4.46 10*6/uL (4.40-5.60); RDW 15.2 % (11.5-14.5); WBC 11.16 10*3/uL (4.50-10.00)
--- NOTE | 2024-07-09 20:25 | XR ---
EXAMINATION TYPE: XR chest 2V DATE OF EXAM: 07/09/2024 8:15 PM COMPARISON: Chest radiographs from 07/21/2023. CLINICAL INDICATION: Male, 48 years old with history of difficulty breathing; TECHNIQUE: XR chest 2V Frontal and lateral views of the chest. FINDINGS: Lungs/Pleura: There is no evidence of pleural effusion, focal consolidation, or pneumothorax. Pulmonary vascularity: Unremarkable. Heart/mediastinum: Cardiomediastinal silhouette is unremarkable. Musculoskeletal: No acute osseous pathology. IMPRESSION: No acute cardiopulmonary disease/process. [facility], , 07/09/2024 8:23 PM
[2024-07-09 20:40] LABS: ALT 25 U/L (4-49); African American GFR (CKD) 57 (>60 ml/min/1.73 sqM); Anion Gap 13 mmol/L; Blood Urea Nitrogen 22 mg/dL (9-20); Calcium 9.6 mg/dL (8.4-10.2); Carbon Dioxide 27 mmol/L (22-30); Chloride 92 mmol/L (98-107); Glucose 248 mg/dL (74-99); Non-African American GFR(CKD) 49 (>60 ml/min/1.73 sqM); Sodium 132 mmol/L (137-145); Total Bilirubin 1.3 mg/dL (0.2-1.3)
[2024-07-09 20:41] LABS: INR 1.1 (<1.2); Partial Thromboplastin Time 24.7 sec (22.0-30.0)
[2024-07-09 20:44] LABS: AST 50 U/L (17-59); Albumin 4.2 g/dL (3.5-5.0); Alkaline Phosphatase 87 U/L (38-126); Potassium 4.6 mmol/L (3.5-5.1); Total Protein 8.6 g/dL (6.3-8.2)
--- NOTE | 2024-07-09 21:23 | ED ---
General Adult HPI - General Chief complaint: Shortness of Breath Stated complaint: Back Pain/R leg swollen Time Seen by Provider: 07/09/24 21:14 Source: patient, RN notes reviewed Mode of arrival: ambulatory Limitations: no limitations - History of Present Illness Initial comments: 48-year-old male with history of diabetes presenting for right great toe wound x 2 weeks. States he was packing luggage a couple weeks ago and accidentally scraped his toe on something and reports a large amount of fluid came out. Since then, he has had pain in the right toe. Also states he has been having some nonexertional shortness of breath and progressive leg swelling over the past month but denies any changes in the past few days. Takes 40 Lasix daily. Denies fevers, cough, nausea, vomiting, chest pain. Denies blood thinners. He is not on insulin for his diabetes, states only pills. States he was referred to a primary care physician however has not followed through in scheduling an appointment. - Related Data Home Medications Medication Instructions Recorded Confirmed Furosemide [Lasix] 40 mg PO DAILY 07/22/23 03/11/24 metFORMIN HCL [Glucophage] 1,000 mg PO DAILY 03/11/24 03/11/24 Previous Rx's Medication Instructions Recorded amLODIPine [Norvasc] 10 mg PO DAILY #30 tab 04/27/23 Doxycycline [Vibramycin] 100 mg PO BID #20 capsule 03/15/24 Acetaminophen Tab [Tylenol] 500 mg PO Q6HR PRN tab 03/16/24 Aspirin 81 mg PO DAILY #90 tab 03/16/24 HYDROcodone/APAP 5-325MG [[place] 1 each PO Q6HR PRN #12 tab 03/16/24 5-325] Losartan [Cozaar] 25 mg PO DAILY #30 tab 03/16/24 Cephalexin [Keflex] 500 mg PO Q6HR #40 cap 07/09/24 Sulfamethox-Tmp 800-160Mg [Bactrim 1 each PO Q12HR #20 tab 07/09/24 Ds] Allergies Allergy/AdvReac Type Severity Reaction Status Date / Time gabapentin [From Neurontin] Allergy Unknown Verified 07/09/24 19:29 pistachio nut Allergy Anaphylaxis Verified 07/09/24 19:29 Review of Systems ROS Statement: Those systems with pertinent positive or pertinent negative responses have been documented in the HPI. ROS Other: All systems not noted in ROS Statement are negative. Past Medical History Past Medical History: Diabetes Mellitus, Hypertension, Myocardial Infarction ([place]) Additional Past Medical History / Comment(s): staph-leg wound, prosthetic right eye, head injury 10 years ago, 2 cardiac stents, lymphedema Last Myocardial Infarction Date:: 2019 History of Any Multi-Drug Resistant Organisms: MRSA Date of last positivie culture/infection: may 2019 MDRO Source:: leg wound Past Surgical History: Heart Catheterization With Stent, Hernia Repair Additional Past Surgical History / Comment(s): right prostethic eye, head (8 or 9 surgeries post accident)-10 years ago, hernia repair with mesh, 2 heart stents Date of Last Stent Placement:: 2019 Past Psychological History: Anxiety Smoking Status: Current every day smoker Past Alcohol Use History: Occasional Past Drug Use History: Marijuana - Past Family History Mother Family Medical History: Diabetes Mellitus, Seizure Disorder General Exam Limitations: no limitations General appearance: alert, in no apparent distress Head exam: Present: atraumatic, normocephalic, normal inspection Eye exam: Present: normal appearance, PERRL, EOMI. Absent: scleral icterus, conjunctival injection, periorbital swelling Respiratory exam: Present: normal lung sounds bilaterally. Absent: respiratory distress, wheezes, rales, rhonchi, stridor Cardiovascular Exam: Present: regular rate, normal rhythm, normal heart sounds. Absent: systolic murmur, diastolic murmur, rubs, gallop, clicks GI/Abdominal exam: Present: soft, normal bowel sounds. Absent: distended, tenderness, guarding, rebound, rigid Right Knee exam: Present: normal inspection, full ROM. Absent: tenderness, swelling Lower Leg exam: Present: full ROM, swelling. Absent: normal inspection (2+ pitting edema bilaterally, patient states this is chronic), tenderness Ankle exam: Present: normal inspection, full ROM. Absent: tenderness Foot/Toe exam: Present: full ROM. Absent: normal inspection (There is a grade 1 diabetic ulceration present on distal right great toe with no active drainage), tenderness, swelling Neurovascular tendon exam: Present: no vascular compromise. Absent: pulse deficit, abnormal cap refill Neurological exam: Present: alert, oriented X3 Psychiatric exam: Present: normal affect, normal mood Skin exam: Present: warm, dry, intact, normal color. Absent: rash Course Vital Signs 07/09/24 07/09/24 19:29 20:59 Temperature 97.9 F 97.9 F Pulse Rate 127 H 109 H Respiratory 20 20 Rate Blood Pressure 142/80 146/93 O2 Sat by Pulse 97 96 Oximetry EKG Findings - EKG Results: EKG: interpreted by PHILIPD (EKG reveals sinus tachycardia with no acute ST changes. Ventricular rate 120 bpm, W[place] interval 152, QRS duration 91, QT/QTc 315/387) Medical Decision Making - Medical Decision Making Was pt. sent in by a medical professional or institution (, PA, RN MOBILE, urgent care, hospital, or fpc...) When possible be specific @ -No Did you speak to anyone other than the patient for history (EMS, parent, family, police, friend...)? What history was obtained from this source @ -No Did you review nursing and triage notes (agree or disagree)? Why? @ -I reviewed and agree with nursing and triage notes Were old charts reviewed (outside hosp., previous admission, EMS record, old EKG, old radiological studies, urgent care reports/EKG's, fpc records)? Report findings @ -No old charts were reviewed Differential Diagnosis (chest pain, altered mental status, abdominal pain women, abdominal pain men, vaginal bleeding, weakness, fever, dyspnea, syncope, headache, dizziness, GI bleed, back pain, seizure, CVA, palpatations, mental health, musculoskeletal)? @ -Differential Musculoskeletal Muscular strain, contusion, ligament sprain, fracture, arthritis, septic arthritis, bursitis, cellulitis, muscle spasm, nerve compression, DVT, arterial occlusion, herpes zoster, electrolyte abnormality, tumor.... This is not meant to be in all inclusive list EKG interpreted by me (3pts min.). @ -As above X-rays interpreted by me (1pt min.). @ -X-ray right foot reveals soft tissue swelling with no evidence of oste omyelitis, chest x-ray reveals no acute cardiopulmonary process CT interpreted by me (1pt min.). @ -None done U/S interpreted by me (1pt. min.). @ -None done What testing was considered but not performed or refused? (CT, X-rays, U/S, labs)? Why? @ -None What meds were considered but not given or refused? Why? @ -None Did you discuss the management of the patient with other professionals (professionals i.e. Dr., PA, RN MOBILE, lab, RT, psych nurse, manager social work, overedge sewer, teacher, hazard mitigation officer, caser up)? Give summary @ -No Was smoking cessation discussed for >3mins.? @ -No Was critical care preformed (if so, how long)? @ -No Were there social determinants of health that impacted care today? How? (Homelessness, low income, unemployed, alcoholism, drug addiction, transportation, low edu. Level, literacy, decrease access to med. care, group home, rehab)? @ -No Was there de-escalation of care discussed even if they declined (Discuss DNR or withdrawal of care, Hospice)? DNR status @ -No What co-morbidities impacted this encounter? (DM, HTN, Smoking, COPD, CAD, Cancer, CVA, ARF, Chemo, Hep., AIDS, mental health diagnosis, sleep apnea, morbid obesity)? @ -None Was patient admitted / discharged? Hospital course, mention meds given and route, prescriptions, significant lab abnormalities, going to OR and other pertinent info. @ - Discharge. 48-year-old male with history of diabetes presenting for right great toe wound x 2 weeks. Patient is afebrile, tachycardic at 127 bpm. There is a grade 1 diabetic ulceration present on right great toe with no active drainage. Lab work remarkable for white blood cell count 11, lactic 2.6. X-ray of right foot reveals soft tissue swelling with no evidence of osteomyelitis, chest x-ray reveals no acute cardiopulmonary process. Patient does not meet s epsis criteria. Upon reevaluation, heart rate is 109 bpm. Patient can be started on oral antibiotics with strict follow-up care and return precautions. Patient is agreeable to this plan. Case was discussed with my ED attending Dr. Cook. Undiagnosed new problem with uncertain prognosis? @ -No Drug Therapy requiring intensive monitoring for toxicity (Heparin, Nitro, Insulin, Cardizem)? @ -No Were any procedures done? @ -No Diagnosis/symptom? @ -Diabetic foot ulceration Acute, or Chronic, or Acute on Chronic? @ -Acute Uncomplicated (without systemic symptoms) or Complicated (systemic symptoms)? @ -Uncomplicated Side effects of treatment? @ -No Exacerbation, Progression, or Severe Exacerbation? @ -No Poses a threat to life or bodily function? How? (Chest pain, [place], [place], pneumonia, PE, COPD, DKA, ARF, appy, cholecystitis, CVA, Diverticulitis, Homicidal, Suicidal, threat to staff... and all critical care pts) @ -Not at this time - Lab Data Result diagrams: 07/09/24 20:14 07/09/24 20:14 Lab Results 07/09/24 07/09/24 07/09/24 Range/Units 19:32 20:14 20:14 WBC 11.16 H (4.50-10.00) 10*3/uL RBC 4.46 (4.40-5.60) 10*6/uL Hgb 15.3 (13.0-17.0) g/dL Hct 44.2 (39.6-50.0) % MCV 99.1 H (80.0-97.0) fL MCH 34.3 H (27.0-32.0) pg MCHC 34.6 (32.0-37.0) g/dL Plt Count 139 L (140-440) 10*3/uL MPV 10.6 (9.5-12.2) fL Immature Gran % (Auto) 0.7 % Neutrophils % 77.2 % Lymphocytes % 13.6 % Monocytes % 6.3 % Eosinophils % 1.4 % Basophils % 0.8 % Immature Gran # 0.08 H (0.00-0.04) 10*3/uL Neutrophils # 8.61 H (1.80-7.70) 10*3/uL Lymphocytes # 1.52 (0.90-5.00) 10*3/uL Monocytes # 0.70 (0.20-1.00) 10*3/uL Eosinophils # 0.16 (0.04-0.35) 10*3/uL Basophils # 0.09 (0.00-0.10) 10*3/uL Immature Plt Fraction 5.1 (1.1-6.1) % PT 12.0 (10.0-12.5) sec INR 1.1 (<1.2) APTT 24.7 (22.0-30.0) sec Sodium (137-145) mmol/L Potassium (3.5-5.1) mmol/L Chloride (98-107) mmol/L Carbon Dioxide (22-30) mmol/L Anion Gap mmol/L BUN (9-20) mg/dL Creatinine (0.66-1.25) mg/dL Est GFR (CKD-EPI)AfAm (>60 ml/min/1.73 sqM) Est GFR (CKD-EPI)NonAf (>60 ml/min/1.73 sqM) Glucose (74-99) mg/dL POC Glucose (mg/dL) 272 H (70-110) mg/dL POC Glu [employer] ID Ck Nix Plasma Lactic Acid Montez (0.7-2.0) mmol/L Calcium (8.4-10.2) mg/dL Total Bilirubin (0.2-1.3) mg/dL AST (17-59) U/L ALT (4-49) U/L Alkaline Phosphatase (38-126) U/L Troponin I (0.000-0.034) ng/mL Total Protein (6.3-8.2) g/dL Albumin (3.5-5.0) g/dL 07/09/24 07/09/24 07/09/24 Range/Units 20:14 20:14 20:14 WBC (4.50-10.00) 10*3/uL RBC (4.40-5.60) 10*6/uL Hgb (13.0-17.0) g/dL Hct (39.6-50.0) % MCV (80.0-97.0) fL MCH (27.0-32.0) pg MCHC (32.0-37.0) g/dL Plt Count (140-440) 10*3/uL MPV (9.5-12.2) fL Immature Gran % (Auto) % Neutrophils % % Lymphocytes % % Monocytes % % Eosinophils % % Basophils % % Immature Gran # (0.00-0.04) 10*3/uL Neutrophils # (1.80-7.70) 10*3/uL Lymphocytes # (0.90-5.00) 10*3/uL Monocytes # (0.20-1.00) 10*3/uL Eosinophils # (0.04-0.35) 10*3/uL Basophils # (0.00-0.10) 10*3/uL Immature Plt Fraction (1.1-6.1) % PT (10.0-12.5) sec INR (<1.2) APTT (22.0-30.0) sec Sodium 132 L (137-145) mmol/L Potassium 4.6 (3.5-5.1) mmol/L Chloride 92 L (98-107) mmol/L Carbon Dioxide 27 (22-30) mmol/L Anion Gap 13 mmol/L BUN 22 H (9-20) mg/dL Creatinine 1.64 H (0.66-1.25) mg/dL Est GFR (CKD-EPI)AfAm 57 (>60 ml/min/1.73 sqM) Est GFR (CKD-EPI)NonAf 49 (>60 ml/min/1.73 sqM) Glucose 248 H (74-99) mg/dL POC Glucose (mg/dL) (70-110) mg/dL POC Glu [employer] ID Plasma Lactic Acid Montez 2.6 H* (0.7-2.0) mmol/L Calcium 9.6 (8.4-10.2) mg/dL Total Bilirubin 1.3 (0.2-1.3) mg/dL AST 50 (17-59) U/L ALT 25 (4-49) U/L Alkaline Phosphatase 87 (38-126) U/L Troponin I 0.014 (0.000-0.034) ng/mL Total Protein 8.6 H (6.3-8.2) g/dL Albumin 4.2 (3.5-5.0) g/dL Disposition Clinical Impression: Diabetic foot ulcer Disposition: HOME SELF-CARE Condition: Stable Instructions (If sedation given, give patient instructions): Foot Care for People with Diabetes (ED), Diabetic Foot Ulcers (ED) Additional Instructions: Take Keflex and Bactrim as prescribed. Please return to the emergency department if infection worsens or you begin to experience fevers. Please follow-up with PCP for reevaluation. Please return to the Emergency Department if symptoms worsen or any other concerns. Prescriptions: Sulfamethox-Tmp 800-160Mg [Bactrim Ds] 1 each PO Q12HR #20 tab Cephalexin [Keflex] 500 mg PO Q6HR #40 cap Is patient prescribed a controlled substance at d/c from ED?: No Referrals: None,Stated [Primary Care Provider] - 1-2 days Forms: Area PCPs Time of Disposition: 22:06
--- NOTE | 2024-07-09 21:51 | XR ---
EXAMINATION TYPE: XR foot complete RT DATE OF EXAM: 07/09/2024 9:28 PM COMPARISON: None CLINICAL INDICATION: Male, 48 years old with history of right foot ulceration; PHH, pain TECHNIQUE: XR foot complete RT examined in the AP, oblique, and lateral projections. FINDINGS: Soft tissue swelling of the first digit without evidence of subcutaneous gas or erosion to suggest os teomyelitis. No evidence of any acute osseous pathology. Calcaneal plantar spurring is present. Mu ltifocal degeneration changes throughout the joints of the foot with osteophyte formation and joint s pace narrowing. IMPRESSION: 1. Soft tissue swelling the first great toe without evidence for osteomyelitis. 2. No evidence of acute fracture. 3. Mild degeneration changes throughout the joints of the foot. 4. Calcaneal plantar spurring. [facility], , 07/09/2024 9:49 PM
[2024-07-09] MEDS: SULFAMETHOX-TMP 800-160MG 1 EACH TAB PO STA (22:20)
[2024-07-09] MEDS: CEPHALEXIN 500 MG CAP PO STA (22:21)
[2024-07-09 22:31] VITALS: BP 150/98; PULSE 98; RESP 18; TEMP 98.4
== END 2024-07-09 22:31 | disposition home or self-care (01) ==
LOC: EC 19:23
DX: E10.621 Type 1 diabetes mellitus with foot ulcer (principal); L97.519 Non-pressure chronic ulcer of other part of right foot with unspecified severity; F17.200 Nicotine dependence, unspecified, uncomplicated; Z88.8 Allergy status to other drugs, medicaments and biological substances; Z91.018 Allergy to other foods
CPT/HCPCS: 36415; 71046; 80053; 83605; 84484; 85025; 85610; 85730; 93005; 99285